=== PATIENT | female | born 1945 | race Caucasian/White ===

== ENCOUNTER 2016-03-30 13:11 | Inpatient (IN) ==
[2016-03-30] MEDS ORDERED: Naloxone 0.4 MG/ML INJ IVP PRN (14:08)
[2016-03-30] MEDS ORDERED: Ondansetron 4 MG/2 ML VIAL IVP PRN (14:08)
[2016-03-30] MEDS ORDERED: Acetaminophen 325 MG TABLET PO PRN (14:08)
[2016-03-30 15:17] LABS: Basophils % 0.2 %; Eosinophils % 0.2 %; Hematocrit 38.5 % (35.3-44.9); Hemoglobin 12.6 g/dL (11.5-15.4); Immature Granulocytes % 0.3 % (0-4); Lymphocytes # 1.7 K/mcL (0.6-4.6); Lymphocytes % 27.8 %; Mean Corpuscular HGB Conc 32.7 g/dL (31.6-35.5); Mean Corpuscular Hemoglobin 30.1 pg (28.0-33.3); Mean Corpuscular Volume 92.1 fL (83.0-100.0); Mean Platelet Volume 9.1 fL (9.4-12.4); Monocytes # 0.5 K/mcL (0.0-1.3); Monocytes % 7.7 %; Neutrophils # 3.9 K/mcL (1.6-8.9); Platelet Count 197 K/mcL (140-400); Red Blood Count 4.18 M/mcL (3.82-4.97); Red Cell Distribution Width 13.6 % (11.5-14.5); Segmented Neutrophils % 63.8 %
[2016-03-30 15:27] LABS: Alanine Aminotransferase 11 Units/L (0-55); Albumin 3.7 g/dL (3.5-5.0); Albumin/Globulin Ratio 1.1 (1.1-2.2); Alkaline Phosphatase 58 Units/L (38-126); Aspartate Amino Transferase 19 Units/L (5-34); BUN/Creatinine Ratio 22 (6-26); Bilirubin,Total 0.3 mg/dL (0.2-1.2); Blood Urea Nitrogen 20 mg/dL (7-20); Calcium 9.6 mg/dL (8.6-10.8); Carbon Dioxide 26 mEq/L (19-29); Chloride 103 mEq/L (98-109); Globulin 3.3 g/dL (2.4-3.5); Glucose 149 mg/dL (70-99); Osmolality,Calculated 291 (280-300); Potassium 4.1 mEq/L (3.5-4.5); Sodium 138 mEq/L (136-145); eGFR For African Americans > 60 (> 60); eGFR For Non-African Americans > 60 (> 60)
[2016-03-30 16:56] LABS: Bacteria,Urine None Seen per hpf (None-Few); Bilirubin,Urine Negative (Negative); Blood,Urine Negative (Negative); Clarity,Urine Clear (Clear); Color,Urine Yellow (Yellow); Glucose,Urine (UA) Normal (Normal); Hyaline Casts,Urine None Seen per lpf (None-Few); Ketones,Urine Negative (Negative); Leukocyte Esterase,Urine Negative (Negative); Nitrite,Urine Negative (Negative); Protein,Urine Negative (Neg-Trace); RBC,Urine 0-3 per hpf (0-3); Squamous Epithelial Cell,Urine Many per lpf (None-Few); Urobilinogen,Urine Normal (Normal)
[2016-03-30] MEDS ORDERED: Melatonin 3 MG TABLET PO PRN (17:02)
--- NOTE | 2016-03-30 17:33 | Internal Med History&Physical ---
Date of Encounter: 03/30/16 Time of Encounter: 16:00 Assessment and Plan (1) Cervical stenosis of spinal canal Current visit: Yes Status: Acute Cervical MRI as outpatient showed severe C3-C4 anterolisthesis with moderate to severe central canal stenosis and shallow disc bulge. Severe right foraminal stenosis at C7-T1. Neurosurgery service is following: plan for cervical surgery tomorrow. Cervical collar. pain control with opiates. bedrest (2) Anterolisthesis Current visit: Yes Status: Acute plan as above. (3) Preoperative clearance Current visit: Yes Status: Acute history of hypertension, severe arthritis and dementia. Patient had a left heart catheterization in 2001 at [place] that was negative. At that time, she had a severe coronary vasospasm causing her cardiac arrest. Per patient, no history of CAD however she takes Imdur, metoprolol, statin and aspirin. Poor functional capacity due to severe arthritis. No active cardiac disease. CBC , CMP and urinalysis are unremarkable. no need for any testing or procedure before surgery. Patient is at moderate risk for a cardiac complication but we will follow her closely during her post- op, this was explained to the patient and her daughters. cardiac monitoring. ekg ordered continue home meds of imdur, statin, aspirin and beta-phillip. (4) HTN (hypertension) Current visit: Yes Status: Chronic Qualifiers: Hypertension type: essential hypertension Qualified Code(s): I10 - Essential (primary) hypertension (5) Dementia Current visit: No Status: Chronic resume home meds Qualifiers: Dementia type: unspecified type Dementia behavioral disturbance: without behavioral disturbance Qualified Code(s): F03.90 - Unspecified dementia without behavioral disturbance (6) Parkinson's disease Current visit: No Status: Chronic (7) Morbid obesity Current visit: No Status: Chronic bmi 38. Qualifiers: Obesity type: unspecified obesity type Qualified Code(s): E66.01 - Morbid ( severe) obesity due to excess calories Internal Medicine - H&P: HPI Chief complaint: severe right neck and arm pain for 1 week Admitted From: Home Plans for Post Hospital Care: Transfer Inp Rehab Fac History of present illness: Ms. Retana is a 70 year old female with past medical history of hypertension, severe arthritis and dementia. She lives in an assisted living facility and uses a rollator for ambulation. Patient has been dealing with right neck and shoulder pain for years and this past February 20 she underwent right total shoulder replacement without complications. After surgery, she was doing well until a week ago when she developed severe right neck pain and shoulder pain with inability to raise her right arm. No tingliness. No numbness. Chronic hip, back and bilateral knee pain due to severe arthritis. She had a cervical MRI as outpatient and it showed severe C3-C4 anterolisthesis with moderate to severe central canal stenosis and shallow disc bulge. Severe right foraminal stenosis at C7-T1. She is a direct admit from Dr Torres wilder and she will undergo cervical surgery tomorrow. Patient had a left heart catheterization in 2001 that was negative. At that time she had a severe coronary vasospasm causing her cardiac arrest. Per patient, no history of CAD however she takes Imdur, metoprolol, statin and aspirin. Her Power of ip attorney is her daughter, Mirian Meade. Past Med Surg Social Fam HX - Past Medical History Medical history: arthritis, dementia, hyperlipidemia, hypertension Psychiatric history: anxiety, bipolar, depression, schizophrenia, previous psychiatric hospitalization, other - Social History Smoking Status: Never smoker Smokeless Tobacco Status: No Alcohol use: none Drug use: none - Family History Father Living Status: Age at : 56 Cause of : heart attack Hx Family Cardiac Disorders: Yes Hx Family Respiratory Disorders: No Hx Family Cancer: Yes (Brain Cancer, Hodgkins) Hx Family GI Disorders: No Hx Family Genitourinary Disorders: No Hx Family Endocrine Disorder: No Hx Family Musculoskeletal Disorders: No Hx Family Neuromuscular Disorders: No Hx Family Neurologic Disorders: No Hx Family HEENT Disorders: No Hx Family Autoimmune Disorders: No Hx Family Reproductive Disorders: No Hx Family Psychosocial Disorders: No Hx Family Medical Disorders: No Internal Medicine - H&P: Meds Atorvastatin [Lipitor] 20 mg PO HS 03/08/15 [History] Azelastine/Fluticasone [Dymista Nasal [place]] 1 spray NS DAILY 03/08/15 [History] Cholecalciferol (Vitamin D3) [Vitamin D3] 5,000 unit PO DAILY 03/08/15 [History] Donepezil [Aricept] 10 mg PO DAILY 03/08/15 [History] Duloxetine [Cymbalta] 90 mg PO HS 03/08/15 [History] Isosorbide MONOnitrate (24 HR) [Imdur] 30 mg PO BID 03/08/15 [History] LORazepam [Lorazepam] 0.5 mg PO DAILY 03/08/15 [History] Loratadine [Claritin] 10 mg PO DAILY 03/08/15 [History] Melatonin 3 mg PO HS 03/08/15 [History] Memantine HCl [Namenda Xr] 14 mg PO QPM 03/08/15 [History] Metoprolol [Lopressor] 25 mg PO BID 03/08/15 [History] Multivitamin [Multi-Day Vitamins] 1 each PO DAILY 03/08/15 [History] Omeprazole 20 mg PO DAILY 03/08/15 [History] Potassium Chloride 20% [Potassium Chloride] 20 meq PO DAILY 03/08/15 [History] OxyCODONE Immed Rel [Roxicodone 5 MG] 5 - 10 mg PO Q6HR PRN #40 tablet 02/20/16 [Rx] Aspirin [Ecotrin] 325 mg PO DAILY 02/21/16 [History] Docusate [Colace] 100 mg PO DAILY 02/21/16 [History] HYDROcodone/Acet 5/325 mg [[place] 5-325 mg] 1 tab PO Q4H PRN 02/21/16 [History] Meloxicam [Mobic] 15 mg PO DAILY 02/21/16 [History] Nitroglycerin [Nitrostat] 0.4 mg SL AD PRN 02/21/16 [History] Promethazine [Phenergan] 25 mg PO BID PRN 02/21/16 [History] Quetiapine Fumarate [Seroquel] 200 mg PO QAM 02/21/16 [History] Quetiapine Fumarate [Seroquel] 400 mg PO HS 02/21/16 [History] Trazodone HCl 75 mg PO HS 03/30/16 [History] Allergies carbamazepine Adverse Reaction (Verified 03/08/15 16:59) unknown per patient Erythromycin Base Adverse Reaction (Verified 03/08/15 16:59) Diarrhea guaifenesin Adverse Reaction (Verified 03/08/15 16:59) MIGRAINES Macrolide Antibiotics Adverse Reaction (Verified 03/08/15 16:59) Diarrhea topiramate [From Topamax] Adverse Reaction (Verified 03/08/15 16:59) "FELT LIKE ON SPEED" PER PATIENT All Systems PM: A 10-system review of systems was performed and is negative for pertinent findings except as documented above in the HPI. - Constitutional Vitals: Temp Pulse Resp BP Pulse Ox 98.3 F 70 16 168/98 94 L 03/30/16 14:19 03/30/16 14:19 03/30/16 14:19 03/30/16 14:19 03/30/16 14:19 General appearance: Present: cooperative, A&O X 3, pleasant, no acute distress, answers questions appropriately - Eye Eye exam: Present: PERRL, sclera anicteric - ENT ENT exam: Present: mucous membranes moist - Neck Neck exam general surgery: Present: supple, trachea midline. Absent: lymphadenopathy Additional comments: cervical collar in place. - Respiratory Respiratory exam: Present: CTAB - Cardiovascular Cardiovascular exam: Present: RRR - GI/Abdominal GI/Abdominal exam: Present: normal bowel sounds, soft. Absent: distended, tenderness - Extremities Exam Extremities exam: Present: pedal edema (minimal ankle swelling in left leg) - Back Exam Back exam: Absent: CVA tenderness (L), CVA tenderness (R) - Neurological Exam Neurological exam: Present: alert, oriented X3. Absent: facial droop, speech deficit - Skin Skin exam: Absent: rash Internal Med - H&P Results - Labs CBC & Chem 7: 03/30/16 14:56 03/30/16 14:56 Labs: Short CBC 03/30/16 Range/Units 14:56 WBC 6.1 (4.3-11.1) K/mcL Hgb 12.6 (11.5-15.4) g/dL Hct 38.5 (35.3-44.9) % Plt Count 197 (140-400) K/mcL Neutrophils # 3.9 (1.6-8.9) K/mcL BMP 03/30/16 14:56 Sodium 138 Potassium 4.1 Chloride 103 Carbon Dioxide 26 BUN 20 Creatinine 0.89 Glucose 149 H Calcium 9.6 Liver Function 03/30/16 Range/Units 14:56 Total Bilirubin 0.3 (0.2-1.2) mg/dL AST 19 (5-34) Units/L ALT 11 (0-55) Units/L Alkaline Phosphatase 58 (38-126) Units/L Albumin 3.7 (3.5-5.0) g/dL Urine 03/30/16 Range/Units 16:34 Urine Color Yellow (Yellow) Urine Clarity Clear (Clear) Urine pH 7.0 (5.0-8.0) pH Units Ur Specific [place] 1.010 (1.010-1.025) Urine Protein Negative (Neg-Trace) mg/dL Urine Glucose (UA) Normal (Normal) mg/dL
[2016-03-30] MEDS: *HR* Morphine 2 MG/ML SYRINGE IVP PRN ×2 (18:10→21:46)
[2016-03-30] MEDS: Isosorbide MONOnitrate (24 HR) 30 MG TAB.ER.24H PO SCH (18:12)
[2016-03-30 19:11] LABS: Prothrombin Time 11.3 Seconds (9.4-12.1)
[2016-03-30 19:14] LABS: Activated Partial Thrombo Time 33.2 Seconds (26.0-36.0)
[2016-03-30] MEDS ORDERED: traZODone 50 MG TABLET PO SCH ×2 (21:00)
[2016-03-31] MEDS: *HR* Morphine 2 MG/ML SYRINGE IVP PRN ×6 (05:22→21:57)
[2016-03-31] MEDS: Isosorbide MONOnitrate (24 HR) 30 MG TAB.ER.24H PO SCH ×2 (05:22→18:32)
[2016-03-31 06:49] LABS: Basophils % 0.4 %; Eosinophils # 0.1 K/mcL (0.0-0.6); Eosinophils % 1.9 %; Hemoglobin 12.5 g/dL (11.5-15.4); Immature Granulocytes % 0.4 % (0-4); Lymphocytes # 2.2 K/mcL (0.6-4.6); Lymphocytes % 45.7 %; Mean Corpuscular HGB Conc 32.1 g/dL (31.6-35.5); Mean Corpuscular Hemoglobin 29.8 pg (28.0-33.3); Mean Corpuscular Volume 93.1 fL (83.0-100.0); Mean Platelet Volume 9.2 fL (9.4-12.4); Monocytes # 0.5 K/mcL (0.0-1.3); Monocytes % 10.5 %; Platelet Count 187 K/mcL (140-400); Red Blood Count 4.19 M/mcL (3.82-4.97); Red Cell Distribution Width 13.9 % (11.5-14.5); Segmented Neutrophils % 41.1 %
[2016-03-31 07:01] LABS: Calcium 9.3 mg/dL (8.6-10.8); Carbon Dioxide 30 mEq/L (19-29); Chloride 101 mEq/L (98-109); Glucose 84 mg/dL (70-99); Sodium 139 mEq/L (136-145); eGFR For African Americans > 60 (> 60); eGFR For Non-African Americans > 60 (> 60)
[2016-03-31 07:13] LABS: Potassium 4.5 mEq/L (3.5-4.5)
[2016-03-31] MEDS ORDERED: *HR* LORazepam 0.5 MG TABLET PO SCH (09:00)
[2016-03-31] MEDS ORDERED: Aspirin Enteric Coated 325 MG Tablet PO SCH (09:00)
[2016-03-31] MEDS ORDERED: traZODone 50 MG TABLET PO SCH (09:00)
[2016-03-31] MEDS ORDERED: Loratadine 10 MG TABLET PO SCH (09:00)
[2016-03-31] MEDS: Pantoprazole 40 MG VIAL IVP SCH ×2 (09:02→09:11)
--- NOTE | 2016-03-31 09:31 | Internal Med Progress Note ---
<Karthik Washington - Last Filed: 03/31/16 09:29> Date of Encounter: 03/31/16 Time of Encounter: 09:30 - Assessment and plan (1) Cervical stenosis of spinal canal Current Visit: Yes Status: Acute Assessment and plan: 03/31/16 No change in symptomatology Surgery planned for later today 03/30/16 Cervical MRI as outpatient showed severe C3-C4 anterolisthesis with moderate to severe central canal stenosis and shallow disc bulge. Severe right foraminal stenosis at C7-T1. Neurosurgery service is following: plan for cervical surgery tomorrow. Cervical collar. pain control with opiates. bedrest (2) Anterolisthesis Current Visit: Yes Status: Acute (3) Preoperative clearance Current Visit: Yes Status: Acute Assessment and plan: 03/30/16 history of hypertension, severe arthritis and dementia. Patient had a left heart catheterization in 2001 at [place] that was negative. At that time, she had a severe coronary vasospasm causing her cardiac arrest. Per patient, no history of CAD however she takes Imdur, metoprolol, statin and aspirin. Poor functional capacity due to severe arthritis. No active cardiac disease. CBC , CMP and urinalysis are unremarkable. no need for any testing or procedure before surgery. Patient is at moderate risk for a cardiac complication but we will follow her closely during her post- op, this was explained to the patient and her daughters. cardiac monitoring. ekg ordered continue home meds of imdur, statin, aspirin and beta-phillip (4) HTN (hypertension) Current Visit: Yes Status: Chronic Assessment and plan: BP stable Qualifiers: Hypertension type: essential hypertension Qualified Code(s): I10 - Essential (primary) hypertension (5) Dementia Current Visit: No Status: Chronic Qualifiers: Dementia type: unspecified type Dementia behavioral disturbance: without behavioral disturbance Qualified Code(s): F03.90 - Unspecified dementia without behavioral disturbance (6) Parkinson's disease Current Visit: No Status: Chronic (7) Morbid obesity Current Visit: No Status: Chronic Qualifiers: Obesity type: unspecified obesity type Qualified Code(s): E66.01 - Morbid ( severe) obesity due to excess calories - Subjective Interval history: Patient seen and examined at bedside. She is wearing a soft neck collar. She states that she is having neck and right shoulder pain. She denies CP, SOB and otherwise has no complaints - Constitutional Vitals: Temp Pulse Resp BP Pulse Ox 98.6 F 67 18 148/78 94 L 03/31/16 06:39 03/31/16 06:39 03/31/16 06:39 03/31/16 06:39 03/31/16 06:39 General appearance: Present: cooperative, A&O X 3, pleasant, no acute distress, answers questions appropriately - Head Head exam: Present: atraumatic, normocephalic - Eye Eye exam: Present: PERRL, conjuntiva pink, sclera anicteric Pupils: Present: PERRL - Neck Neck exam general surgery: Present: trachea midline. Absent: lymphadenopathy Additional comments: Soft cervical collar in place - Respiratory Respiratory exam: Present: CTAB. Absent: accessory muscle use, rales, rhonchi, wheezes - Cardiovascular Cardiovascular exam: Present: RRR, +S1, +S2. Absent: diastolic murmur, gallop, rubs, systolic murmur - GI/Abdominal GI/Abdominal exam: Present: normal bowel sounds, soft, no peritoneal signs. Absent: distended, tenderness - Extremities Exam Extremities exam: Present: warm, radial pulses palpable and symetrical. Absent : calf tenderness, cyanotic, pedal edema - Neurological Exam Neurological exam: Present: alert, oriented X3, no focal deficits. Absent: facial droop, speech deficit - Skin Skin exam: Present: dry, intact Internal Medicine: Result - Labs CBC & Chem 7: 03/31/16 06:20 03/31/16 06:20 Labs: Short CBC 03/30/16 03/31/16 Range/Units 14:56 06:20 WBC 6.1 4.9 (4.3-11.1) K/mcL Hgb 12.6 12.5 (11.5-15.4) g/dL Hct 38.5 39.0 (35.3-44.9) % Plt Count 197 187 (140-400) K/mcL Neutrophils # 3.9 2.0 (1.6-8.9) K/mcL BMP 03/30/16 03/31/16 14:56 06:20 Sodium 138 139 Potassium 4.1 4.5 Chloride 103 101 Carbon Dioxide 26 30 H BUN 20 27 H Creatinine 0.89 0.83 Glucose 149 H 84 Calcium 9.6 9.3 Liver Function 02/16/17 Range/Units 14:56 Total Bilirubin 0.3 (0.2-1.2) mg/dL AST 19 (5-34) Units/L ALT 11 (0-55) Units/L Alkaline Phosphatase 58 (38-126) Units/L Albumin 3.7 (3.5-5.0) g/dL Urine 03/30/16 Range/Units 16:34 Urine Color Yellow (Yellow) Urine Clarity Clear (Clear) Urine pH 7.0 (5.0-8.0) pH Units Ur Specific [place] 1.010 (1.010-1.025) Urine Protein Negative (Neg-Trace) mg/dL Urine Glucose (UA) Normal (Normal) mg/dL - ABG Interpretation ABG results: PT/INR, D-dimer PT 11.3 Seconds (9.4-12.1) 03/30/16 18:28 - Impressions Impressions Chest X-Ray 03/30/16 21:04 IMPRESSION: Mild pulmonary vascular congestion. D/ / Omar Castanon MD / Omar Castanon MD Interpreting Provider: Omar Castanon MD - VTE Documentation of Mechanical Device: Venous foot pump, device Consult Discharge Plan - Plan Referrals: Ava Lazar, WATER POLLUTION CONTROL TECHNICIAN [Primary Care Provider] - <Luis Alberto Cee H - Last Filed: 03/31/16 13:55> Date of Encounter: 03/31/16 - Constitutional Vitals: Temp Pulse Resp BP Pulse Ox 98.4 F 72 18 139/78 94 L 03/31/16 11:12 03/31/16 11:12 03/31/16 11:12 03/31/16 11:12 03/31/16 11:12 Internal Medicine: Result - Labs CBC & Chem 7: 03/31/16 06:20 03/31/16 06:20 Labs: Short CBC 03/30/16 03/31/16 Range/Units 14:56 06:20 WBC 6.1 4.9 (4.3-11.1) K/mcL Hgb 12.6 12.5 (11.5-15.4) g/dL Hct 38.5 39.0 (35.3-44.9) % Plt Count 197 187 (140-400) K/mcL Neutrophils # 3.9 2.0 (1.6-8.9) K/mcL BMP 03/30/16 03/31/16 14:56 06:20 Sodium 138 139 Potassium 4.1 4.5 Chloride 103 101 Carbon Dioxide 26 30 H BUN 20 27 H Creatinine 0.89 0.83 Glucose 149 H 84 Calcium 9.6 9.3 Liver Function 03/30/16 Range/Units 14:56 Total Bilirubin 0.3 (0.2-1.2) mg/dL AST 19 (5-34) Units/L ALT 11 (0-55) Units/L Alkaline Phosphatase 58 (38-126) Units/L Albumin 3.7 (3.5-5.0) g/dL Urine 03/30/16 Range/Units 16:34 Urine Color Yellow (Yellow) Urine Clarity Clear (Clear) Urine pH 7.0 (5.0-8.0) pH Units Ur Specific [place] 1.010 (1.010-1.025) Urine Protein Negative (Neg-Trace) mg/dL Urine Glucose (UA) Normal (Normal) mg/dL - ABG Interpretation ABG results: PT/INR, D-dimer PT 11.3 Seconds (9.4-12.1) 03/30/16 18:28 - Impressions Impressions Chest X-Ray 03/30/16 21:04 IMPRESSION: Mild pulmonary vascular congestion. D/ / Omar Castanon MD / Omar Castanon MD Interpreting Provider: Omar Castanon MD - Attending Attestation B/L tenar muscles atrophy R>Left. Surgery today. I examined this patient and my medical decision-making was reviewed with the ELECTROLYTIC DE SCALER/PA/Advanced Practice Nurse/Resident Physician. I agree with the documented findings, disposition and treatment plan as described except to the extent set forth below.
[2016-03-31] MEDS ORDERED: Ondansetron 4 MG/2 ML VIAL ONE ×3 (14:12→18:31)
[2016-03-31] MEDS ORDERED: *HR* Rocuronium Bromide 50 MG/5 ML VIAL ONE (14:12)
[2016-03-31] MEDS ORDERED: *HR* Succinylcholine 200 MG/10 ML VIAL IVP ONE (14:12)
[2016-03-31] MEDS ORDERED: *HR* Propofol 200 MG/20 ML VIAL IVP ONE (14:13)
[2016-03-31] MEDS ORDERED: *HR* Midazolam HCl 2 MG/2 ML VIAL ONE (14:13)
[2016-03-31] MEDS ORDERED: Lidocaine -MPF 2% 2 ML VIAL ONE (14:13)
[2016-03-31] MEDS ORDERED: *HR* Remifentanil 1 MG VIAL IVP ONE ×2 (14:34)
--- NOTE | 2016-03-31 14:36 | Anesthesia Evaluation PreOp ---
Date of Encounter: 03/31/16 Time of Encounter: 14:29 - Past History Planned Operation: ACDF C3-C5 Cardiac History: PA, HTN, Hyperlipidemia Pulmonary History: Denies Any Significant HX DINNER COOK History: Denies Any Significant HX Other Medical History: GERD, Other (schizophrenia, fibromyalgia, bipolar, dementia) Anesthesia History: No Prior Anesthetic Complications, Past Anesthesia Alcohol Use: none Drug use: none Medications and Allergies Atorvastatin [Lipitor] 20 mg PO HS 03/08/15 [History] Azelastine/Fluticasone [Dymista Nasal [place]] 1 spray NS DAILY 03/08/15 [History] Cholecalciferol (Vitamin D3) [Vitamin D3] 5,000 unit PO DAILY 03/08/15 [History] Donepezil [Aricept] 10 mg PO DAILY 03/08/15 [History] Duloxetine [Cymbalta] 90 mg PO HS 03/08/15 [History] Isosorbide MONOnitrate (24 HR) [Imdur] 30 mg PO BID 03/08/15 [History] LORazepam [Lorazepam] 0.5 mg PO DAILY 03/08/15 [History] Loratadine [Claritin] 10 mg PO DAILY 03/08/15 [History] Melatonin 3 mg PO HS 03/08/15 [History] Memantine HCl [Namenda Xr] 14 mg PO QPM 03/08/15 [History] Metoprolol [Lopressor] 25 mg PO BID 03/08/15 [History] Multivitamin [Multi-Day Vitamins] 1 each PO DAILY 03/08/15 [History] Omeprazole 20 mg PO DAILY 03/08/15 [History] Potassium Chloride 20% [Potassium Chloride] 20 meq PO DAILY 03/08/15 [History] OxyCODONE Immed Rel [Roxicodone 5 MG] 5 - 10 mg PO Q6HR PRN #40 tablet 02/20/16 [Rx] Aspirin [Ecotrin] 325 mg PO DAILY 02/21/16 [History] Docusate [Colace] 100 mg PO DAILY 02/21/16 [History] HYDROcodone/Acet 5/325 mg [[place] 5-325 mg] 1 tab PO Q4H PRN 02/21/16 [History] Meloxicam [Mobic] 15 mg PO DAILY 02/21/16 [History] Nitroglycerin [Nitrostat] 0.4 mg SL AD PRN 02/21/16 [History] Promethazine [Phenergan] 25 mg PO BID PRN 02/21/16 [History] Quetiapine Fumarate [Seroquel] 200 mg PO QAM 02/21/16 [History] Quetiapine Fumarate [Seroquel] 400 mg PO HS 02/21/16 [History] Trazodone HCl 75 mg PO HS 03/30/16 [History] Allergies carbamazepine Adverse Reaction (Verified 03/08/15 16:59) unknown per patient Erythromycin Base Adverse Reaction (Verified 03/08/15 16:59) Diarrhea guaifenesin Adverse Reaction (Verified 03/08/15 16:59) MIGRAINES Macrolide Antibiotics Adverse Reaction (Verified 03/08/15 16:59) Diarrhea topiramate [From Topamax] Adverse Reaction (Verified 03/08/15 16:59) "FELT LIKE ON SPEED" PER PATIENT - Meds/Allergy Pre-op Review Medications Reviewed: Yes Allergies Reviewed: Yes Beta Blockers on Current Med List: Yes If Beta Blockers taken, Date/Time (Last Dose taken): 03/31/2016 at 0901 Anesthesia Results - Labs 03/31/16 06:20 03/31/16 06:20 - Imaging EKG: report reviewed (03/05/2015 SB, NSST abnormality) Additional studies: 11/11/2015 Stress EF>70% perfusion imaging was negative for ischemia or infarct evidence of mild TID, ratio 1.46 03/31/2013 Echo LVEF 55-60% normal LV size and function there is evidence of mild LV diastolic dysfunction normal RV size and function no significant valvular dysfunction estimated RVSP was 37 mmHg mild pulmonary HTN Anesthesia Exam Vital Signs/O2 Sat, Most Current Temp Pulse Resp BP Pulse Ox 98.4 F 72 18 139/78 94 L 03/31/16 11:12 03/31/16 11:12 03/31/16 11:12 03/31/16 11:12 03/31/16 11:12 Height: 5'2''/1.57 m Weight: 207 lbs/94.12 kg NPO (# of Hours): 8 Pain Scale: 5 Pain Scale Used: Numeric (1 - 10) - HEENT Pupil (Motor): EOMI Mallampati: II Teeth: Normal Oral Opening: Greater than 3 - DINNER COOK LOC: Oriented DINNER COOK Motor: Normal LUE, Normal RLE, Normal LLE, Normal Face, Deficit RUE DINNER COOK Sensory: Normal: RUE, LUE, RLE, LLE, Face - Cardiac Rhythm: Regular Murmur: None - Pulmonary Breath Sounds: bilateral Clear Respiratory Effort: Symmetrical Anesthesia Assess/Plan ASA Score: 3 Modified Delia Scale for Level of Consciousness: Cooperative, oriented, and tranquil Anesthetic Plan: General Monitoring Plan: Standard Monitors Recovery Plan: PACU
--- NOTE | 2016-03-31 14:53 | Spinal Consult Note ---
Date of Encounter: 03/31/16 Time of Encounter: 14:00 Assessment and Plan (1) Cervical kyphosis Current Visit: Yes Status: Chronic On exam she is pleasant and cooperative. Afebrile vital signs are stable. She is unable to abduct her right shoulder/arm. Her deltoid strength is 1 on a motor scale. She can fire her biceps with 4 minus out of 5 strength. She is otherwise neurovascularly intact with regard to her upper and lower extremities. She has a negative Neville sign. She has no clonus. Radiographic evaluation reveals a severe anterolisthesis of C3 on C4. It is grade 3 spondylolisthesis and almost grade 4. There are marked cervical degenerative changes. There appears to be autofusion at C4-5, marked disc space height with osteophytes at C5-6 and autofusion at C6-7. There is a marked cervical kyphosis. Multilevel severe degenerative changes. MRI examination reveals a marked anterolisthesis on C3-4. There is severe central and foraminal stenosis at the C3-4 level. There is a marked cervical kyphosis. There is autofusion at C4-5 and C6-7. There are severe multilevel degenerative changes. Impression: 1) cervical kyphosis 2) Marked anterolisthesis C3 on C4 3) severe cervical stenosis 4) focal motor deficit which is progressive Plan: Due to her concerning weakness and neurologic progression I find it reasonable to consider surgery in the form of an anterior cervical decompression and fusion C3-C4. Risks benefits and possible complications were discussed and the patient would like to proceed. Patient understands that due to her significant deformity and instability she will likely require a posterior decompression and fusion as a staged procedure as well. Patient is amenable to the plan, and is willing to proceed. Qualifiers: Kyphosis type: unspecified Qualified Code(s): M40.202 - Unspecified kyphosis, cervical region (2) Focal motor deficit Current Visit: Yes Status: Acute (3) Cervical stenosis of spinal canal Current Visit: Yes Status: Chronic History of Present Illness Chief complaint: Cant move right arm, right arm pain HPI: Ms. Retana is a 70 year old female Present history of previous right shoulder surgery by Dr. Kohli as well as bilateral total knee replacements. She was doing well but has experience progressive and worsening right upper extremity pain and weakness. She has been unable to abduct the right shoulder at all over the past several days but noticed weakness approximately 10 days ago. She was seen by orthopedics postoperatively for her right shoulder surgery, but her profound weakness prompted radiographs and MRI examination. Due to the severe findings on MRI and radiographic examination as well as concerning progressive weakness she was admitted to the hospital for definitive management. She denies any fevers, chills, trauma. Past Med Surg Social Fam HX - Past Medical History Medical history: arthritis, dementia, hyperlipidemia, hypertension Psychiatric history: anxiety, bipolar, depression, schizophrenia, previous psychiatric hospitalization, other - Social History Smoking Status: Never smoker Smokeless Tobacco Status: No Alcohol use: none Drug use: none - Family History Father Living Status: Age at : 56 Cause of : heart attack Hx Family Cardiac Disorders: Yes Hx Family Respiratory Disorders: No Hx Family Cancer: Yes (Brain Cancer, Hodgkins) Hx Family GI Disorders: No Hx Family Genitourinary Disorders: No Hx Family Endocrine Disorder: No Hx Family Musculoskeletal Disorders: No Hx Family Neuromuscular Disorders: No Hx Family Neurologic Disorders: No Hx Family HEENT Disorders: No Hx Family Autoimmune Disorders: No Hx Family Reproductive Disorders: No Hx Family Psychosocial Disorders: No Hx Family Medical Disorders: No Medications and Allergies Atorvastatin [Lipitor] 20 mg PO HS 03/08/15 [History] Azelastine/Fluticasone [Dymista Nasal [place]] 1 spray NS DAILY 03/08/15 [History] Cholecalciferol (Vitamin D3) [Vitamin D3] 5,000 unit PO DAILY 03/08/15 [History] Donepezil [Aricept] 10 mg PO DAILY 03/08/15 [History] Duloxetine [Cymbalta] 90 mg PO HS 03/08/15 [History] Isosorbide MONOnitrate (24 HR) [Imdur] 30 mg PO BID 03/08/15 [History] LORazepam [Lorazepam] 0.5 mg PO DAILY 03/08/15 [History] Loratadine [Claritin] 10 mg PO DAILY 03/08/15 [History] Melatonin 3 mg PO HS 03/08/15 [History] Memantine HCl [Namenda Xr] 14 mg PO QPM 03/08/15 [History] Metoprolol [Lopressor] 25 mg PO BID 03/08/15 [History] Multivitamin [Multi-Day Vitamins] 1 each PO DAILY 03/08/15 [History] Omeprazole 20 mg PO DAILY 03/08/15 [History] Potassium Chloride 20% [Potassium Chloride] 20 meq PO DAILY 03/08/15 [History] OxyCODONE Immed Rel [Roxicodone 5 MG] 5 - 10 mg PO Q6HR PRN #40 tablet 02/20/16 [Rx] Aspirin [Ecotrin] 325 mg PO DAILY 02/21/16 [History] Docusate [Colace] 100 mg PO DAILY 02/21/16 [History] HYDROcodone/Acet 5/325 mg [[place] 5-325 mg] 1 tab PO Q4H PRN 02/21/16 [History] Meloxicam [Mobic] 15 mg PO DAILY 02/21/16 [History] Nitroglycerin [Nitrostat] 0.4 mg SL AD PRN 02/21/16 [History] Promethazine [Phenergan] 25 mg PO BID PRN 02/21/16 [History] Quetiapine Fumarate [Seroquel] 200 mg PO QAM 02/21/16 [History] Quetiapine Fumarate [Seroquel] 400 mg PO HS 02/21/16 [History] Trazodone HCl 75 mg PO HS 03/30/16 [History] Allergies carbamazepine Adverse Reaction (Verified 03/08/15 16:59) unknown per patient Erythromycin Base Adverse Reaction (Verified 03/08/15 16:59) Diarrhea guaifenesin Adverse Reaction (Verified 03/08/15 16:59) MIGRAINES Macrolide Antibiotics Adverse Reaction (Verified 03/08/15 16:59) Diarrhea topiramate [From Topamax] Adverse Reaction (Verified 03/08/15 16:59) "FELT LIKE ON SPEED" PER PATIENT Results - Labs Result Diagrams: 03/31/16 06:20 03/31/16 06:20 Labs: Abnormal lab results MPV 9.2 fL (9.4-12.4) L 03/31/16 06:20 Carbon Dioxide 30 mEq/L (19-29) H 03/31/16 06:20 BUN 27 mg/dL (7-20) H 03/31/16 06:20 BUN/Creatinine Ratio 33 (6-26) H 03/31/16 06:20 Ur Squamous Epith Cells Many per lpf (None-Few) H 03/30/16 16:34 H & H 03/30/16 03/31/16 Range/Units 14:56 06:20 Hgb 12.6 12.5 (11.5-15.4) g/dL Hct 38.5 39.0 (35.3-44.9) % All other labs normal. Consult Discharge Plan - Plan Referrals: Ava Lazar, A/C TECHNICIAN [Primary Care Provider] -
[2016-03-31 14:56] LABS: BUN/Creatinine Ratio 27 (6-26); Blood Urea Nitrogen 22 mg/dL (7-20)
[2016-03-31 14:57] LABS: Osmolality,Calculated 291 (280-300)
[2016-03-31] MEDS ORDERED: *HR* FentaNYL (PF) 100 MCG/2 ML VIAL ONE (15:21)
[2016-03-31] MEDS ORDERED: EPHEDrine 50 MG/ML VIAL ONE (16:08)
[2016-03-31] MEDS ORDERED: *HR* Labetalol 100 MG/20 ML MDV IVP PRN (16:32)
[2016-03-31] MEDS ORDERED: *HR* Promethazine 25 MG/ML VIAL IVP PRN (16:32)
[2016-03-31] MEDS ORDERED: Ondansetron 4 MG/2 ML VIAL IVP ONE (16:32)
[2016-03-31] MEDS ORDERED: Neostigmine Methylsulfate 3 MG/3 ML SYRINGE ONE (16:55)
--- NOTE | 2016-03-31 17:27 | Electrocardiograph Report ---
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
[2016-03-31] MEDS ORDERED: Dexamethasone 4 MG/ML VIAL ONE (18:05)
--- NOTE | 2016-03-31 18:22 | Orthopedic Operative Note ---
Date of procedure: 03/31/16 Pre-op diagnosis: cervical kyphosis, cervical stenosis, anterolisthesis, focal motor deficit Post-op diagnosis: same Operation/Findings: Anterior cervical decompression and fusion C3-4: The patient was brought to the operating room and placed supine on the operating room table. Successful general endotracheal anesthesia intubation was performed. Neurophysiologic monitoring personnel placed leads on the upper and lower extremities as well as the cranium for EMG monitoring purposes. Appropriate baseline potentials were noted by the neurophysiologic monitoring staff. Chance catheter was placed prior to positioning. Compression boots and stockings were placed for deep vein thrombosis prophylaxis. Padding was also placed all bony prominences including the ulnar nerve near the medial epicondyles of the elbows were appropriately padded. Mild traction was placed on the bilateral shoulders and taped into place. Preoperative antibiotics were administered. The area from the mandible bilaterally to the upper thoraces was prepped and draped in the usual sterile fashion. A transverse incision was made 2 cm proximal to the level of the cricoid cartilage which is approximately 3 cm in length and extended from the midline of the cervical spine laterally towards the sternocleidomastoid muscle on the left. We then performed standard medial approach to the carotid sheath. Sponges were used to tease the fascial medial to the sternocleidomastoid muscle while carefully controlling and palpating the carotid artery. Using careful dissection we were able to get to the level of the anterior vertebral bodies and longus coli muscles. The spinal needle was placed at the appropriate C3-4 level, and intraoperative radiograph was obtained which was a cervical spine lateral radiograph. The needle and radiograph confirmed we were at the correct C3-4 operative level. We further exposed this level by using Bovie cautery under the medial edge of the longus coli muscles to allow them to be retracted approximately 2 mm laterally on each side. An 11 blade was used to perform anterior discectomy at the appropriate level after an initial annulotomy of the anterior longitudinal ligament and annulus was performed. Further disc material was removed with pituitary Rongeurs. Subsequently, Synthes pins were placed at the C3 and C4 vertebral bodies respectively to provide distraction. We then used a Trimline cervical retractor which was placed in both medial and lateral as well as inferior superior direction to allow full visualization of the appropriate C3-4 disc and C3 and C4 vertebral bodies. The Leica microscope was brought to the field and the remainder of the procedure was performed under the guidance of this microscope. Using pituitary rongeurs and small curettes, various micro- instruments, a full discectomy was performed at the appropriate C3-4 level. The posterior longitudinal ligament was encountered and appeared partially calcified. A portion of this ligament was removed. After complete and thorough discectomy and removal of spondylitic material was performed the endplates of the C3 and C4 vertebral bodies were prepared with a bur until allow bleeding of cancellous bone. A 7 mm trial graft was evaluated and appeared to fit quite well within the excised disc space. A cortico-cancellus allograft of 7 mm was utilized, carefully tapped into place within the excised disc space with the aid of a bone tamp. It was seated approximately 2 mm from the anterior edge of the cortex of the adjacent C3 and C4 vertebral bodies. A 27mm cervical plate was then placed on the anterior aspect of the C3 and C4 vertebral bodies. The plate was placed in the midline position after drilling for 13 mm self tapping screws and inserting them. They were locked in place using standard Venture plate maneuvers. At this point a lateral radiograph of the cervical spine was obtained and showed satisfactory position of the graft and plate. The wound was copiously irrigated and bleeders encountered were cauterized using Bovie cautery. Platysma was closed with interrupted 2-0 Vicryl sutures. Running 3-0 Monocryl suture was used for skin closure. Sterile dressing was placed over the neck wound. The patient was transferred to a hospital bed and extubated. The patient was noted to be fully motor and sensory intact in the recovery room at the end of the procedure. The medications. All sponge instrument and needle counts were correct at the end of the procedure. Anesthesia: GETA Surgeon: Gino Macdonald Jr Estimated blood loss (cc): 40 Condition: stable Disposition: PACU
[2016-03-31] MEDS: *HR* HYDROmorphone (PF) 1 MG/ML SYRINGE IVP PRN ×4 (18:43→18:58)
--- NOTE | 2016-03-31 19:25 | Anesthesia Evaluation Post Op ---
Date of Encounter: 03/31/16 Time of Encounter: 19:25 - Vital Signs Vital Signs: Vital Signs/O2 Sat, Most Current Temp Pulse Resp BP Pulse Ox 98.2 F 100 14 149/85 100 03/31/16 18:53 03/31/16 19:13 03/31/16 19:13 03/31/16 19:13 03/31/16 19:13 - Lungs Lungs: Clear Ascult./Percussion - Airway Airway: Non-obstructed - Cardiovascular Regular Rate - Mental Status Mental Status: Asleep with brisk response to light stimulation - Pain Pain Scale: 5 Pain Scale used: Numeric (1 - 10) - Nausea Vomiting Nausea Vomiting: Not Present - Hydration Hydration: Ice chips, Chance catheter - Discharge PostOp Status: Transfer Patient to floor
[2016-03-31] MEDS ORDERED: Acetaminophen 325 MG TABLET PO PRN (19:59)
[2016-03-31] MEDS ORDERED: Naloxone 0.4 MG/ML INJ IVP PRN (19:59)
[2016-03-31] MEDS ORDERED: Nitroglycerin 0.4 MG TAB.SUBL SL PRN (19:59)
[2016-03-31] MEDS: *HR* HYDROcodone/Acet 5/325 mg TABLET PO PRN (20:51)
[2016-03-31] MEDS: traZODone 50 MG TABLET PO SCH (20:51)
[2016-03-31] MEDS ORDERED: Melatonin 3 MG TABLET PO SCH (21:00)
[2016-04-01] MEDS: *HR* HYDROcodone/Acet 5/325 mg TABLET PO PRN (01:08)
[2016-04-01] MEDS: *HR* Morphine 2 MG/ML SYRINGE IVP PRN (04:05)
[2016-04-01] MEDS: Isosorbide MONOnitrate (24 HR) 30 MG TAB.ER.24H PO SCH ×2 (05:19→16:34)
[2016-04-01] MEDS: Pantoprazole 40 MG VIAL IVP SCH ×2 (07:28→20:51)
[2016-04-01] MEDS: Ondansetron 4 MG/2 ML VIAL IVP PRN (07:28)
[2016-04-01] MEDS: Cholecalciferol (D-3) 1,000 UNIT TABLET PO SCH (07:29)
[2016-04-01] MEDS: Aspirin Enteric Coated 325 MG Tablet PO SCH (07:29)
[2016-04-01] MEDS: Loratadine 10 MG TABLET PO SCH (07:29)
[2016-04-01] MEDS: *HR* LORazepam 0.5 MG TABLET PO SCH (07:30)
[2016-04-01] MEDS: Multivit/Ca/Min/Fe/FA 1 TAB TABLET PO SCH (07:30)
[2016-04-01] MEDS: DYMISTA NS SCH (07:30)
[2016-04-01] MEDS: *HR* OxyCODONE/APAP 5/325 TABLET PO PRN ×4 (07:42→21:38)
[2016-04-01] MEDS: ceFAZolin 1,000 MG in D5% in Water (Mini-Bag+) 100 ML IVPB SCH ×2 (08:57→15:54)
--- NOTE | 2016-04-01 11:35 | Internal Med Progress Note ---
Date of Encounter: 04/01/16 Time of Encounter: 11:33 - Assessment and plan (1) Cervical kyphosis Current Visit: Yes Status: Chronic Assessment and plan: 1) cervical kyphosis 2) Marked anterolisthesis C3 on C4 3) severe cervical stenosis 4) progressive focal motor deficit S/PAnterior cervical decompression and fusion C3-4 Cervical MRI as outpatient showed severe C3-C4 anterolisthesis with moderate to severe central canal stenosis and shallow disc bulge. Severe right foraminal stenosis at C7-T1. Planning for cervical fusion on Sunday by Dr Romeo ( Sunday maybe) Pain control with morphine Qualifiers: Kyphosis type: unspecified Qualified Code(s): M40.202 - Unspecified kyphosis, cervical region (2) Anterolisthesis Current Visit: Yes Status: Acute (3) Cervical stenosis of spinal canal Current Visit: Yes Status: Chronic Assessment and plan: 03/31/16 No change in symptomatology Surgery planned (4) HTN (hypertension) Current Visit: Yes Status: Chronic Assessment and plan: Elevated likely secondary to pain Start hydralazine as needed and continue metoprolol BP stable Qualifiers: Hypertension type: essential hypertension Qualified Code(s): I10 - Essential (primary) hypertension (5) Rotator cuff arthropathy Current Visit: No Status: Acute Qualifiers: Laterality: right Qualified Code(s): M12.811 - Other specific arthropathies , not elsewhere classified, right shoulder (6) Dementia Current Visit: No Status: Chronic Assessment and plan: Continue Aricept Qualifiers: Dementia type: unspecified type Dementia behavioral disturbance: without behavioral disturbance Qualified Code(s): F03.90 - Unspecified dementia without behavioral disturbance - Time Spent With Patient Greater than 35 minutes - Subjective Interval history: Complains of upper airway congestion, mild neck pain. Denies any chest pain, no shortness of breath, no abdominal pain, no dysuria. No fevers overnight her blood pressure has been elevated in the 160s. Complains of mild headache - Constitutional Vitals: Temp Pulse Resp BP Pulse Ox 98.1 F 65 16 147/83 95 04/01/16 11:28 04/01/16 11:28 04/01/16 11:28 04/01/16 11:28 04/01/16 11:28 General appearance: Present: cooperative, A&O X 3, pleasant, no acute distress, answers questions appropriately - Head Head exam: Present: atraumatic, normocephalic - Eye Eye exam: Present: PERRL, conjuntiva pink, sclera anicteric Pupils: Present: PERRL - Neck Neck exam general surgery: Present: supple, trachea midline. Absent: lymphadenopathy - Respiratory Respiratory exam: Present: CTAB. Absent: accessory muscle use, rales, rhonchi, wheezes - Cardiovascular Cardiovascular exam: Present: RRR, +S1, +S2. Absent: diastolic murmur, gallop, rubs, systolic murmur - GI/Abdominal GI/Abdominal exam: Present: normal bowel sounds, soft, no peritoneal signs. Absent: distended, tenderness - Extremities Exam Extremities exam: Present: warm, radial pulses palpable and symetrical. Absent : calf tenderness, cyanotic, pedal edema Additional comments: Upper extremities weakness 4 out of 5 mostly evident in the right upper extremity - Neurological Exam Neurological exam: Present: CN II-XII intact, oriented X3. Absent: no focal deficits, pronater drift, facial droop, speech deficit - Skin Skin exam: Present: dry, intact Internal Medicine: Result - Labs CBC & Chem 7: 03/31/16 06:20 03/31/16 06:20 Labs: BMP 03/31/16 06:20 Sodium 139 Potassium 4.5 Chloride 101 Carbon Dioxide 30 H BUN 22 H Creatinine 0.83 Glucose 84 Calcium 9.3 - ABG Interpretation ABG results: PT/INR, D-dimer PT 11.3 Seconds (9.4-12.1) 03/30/16 18:28 - Impressions Impressions Fluoroscopy 03/31/16 15:49 IMPRESSION: Intraprocedural fluoroscopic spot images as above. See separate procedure report for more information. D/ / Taras You MD / Taras You MD Interpreting Provider: Taras You MD Cervical Spine X-Ray 04/01/16 08:15 IMPRESSION: 1. Postsurgical changes are noted from an anterior C3-C4 fusion and discectomy without complication. 2. Pulmonary edema, more conspicuous. Follow-up chest radiograph may be of benefit for further evaluation. D/ / 04/01/2016 11:08:40 Jayce Williamson MD / keri Interpreting Provider: Jayce Williamson MD - VTE Documentation of Mechanical Device: Intermittent pneumatic compression device Consult Discharge Plan - Plan Referrals: Ava Lazar, SUPERVISOR AGRICULTURAL EDUCATION [Primary Care Provider] -
[2016-04-01] MEDS: (Memantine Hcl [Namenda Xr] 14 MG) PO SCH (16:27)
[2016-04-01] MEDS ORDERED: Mag Hydrox/Al Hydrox/Simeth 30 ML UDC PO PRN (20:32)
[2016-04-01] MEDS: traZODone 50 MG TABLET PO SCH (20:51)
[2016-04-01] MEDS: Melatonin 3 MG TABLET PO PRN (21:42)
[2016-04-02] MEDS: *HR* OxyCODONE/APAP 5/325 TABLET PO PRN ×5 (04:28→22:20)
[2016-04-02] MEDS: Isosorbide MONOnitrate (24 HR) 30 MG TAB.ER.24H PO SCH ×2 (06:21→17:56)
--- NOTE | 2016-04-02 07:00 | Spine Progress Note ---
Date of Encounter: 04/02/16 Time of Encounter: 06:58 - Assessment and Plan (1) Cervical kyphosis Current Visit: Yes Status: Chronic Qualifiers: Kyphosis type: unspecified Qualified Code(s): M40.202 - Unspecified kyphosis, cervical region (2) Focal motor deficit Current Visit: Yes Status: Acute (3) Cervical stenosis of spinal canal Current Visit: Yes Status: Chronic Subjective Principal diagnosis: cervical kyphosis, cervical stenosis, focal motor deficit, anterolisthesis Interval history: The patient is without complaints. Afebrile vital signs are stable. Incision is clean dry and intact. Neurovascularly intact with regard to upper extremities but right arm abduction weakness persists. Fires all upper and lower extremity motor groups. Radiiograph satisfactory. Assessment :stable. Plan mobilize ,continue analgesics, will need posterior cervical stabilization procedure likely Sunday. Objective Vital signs: Vital Signs Temp Pulse Resp BP Pulse Ox 04/02/16 06:47 97.9 F 69 16 103/62 93 L 04/02/16 04:19 97.6 F 72 16 122/69 94 L 04/02/16 04:00 97.6 F 73 16 125/75 98 04/02/16 00:00 97.1 F L 78 17 128/75 98 04/01/16 20:00 97.8 F 79 19 127/73 98 04/01/16 16:32 98.2 F 66 14 115/73 97 04/01/16 11:28 98.1 F 65 16 147/83 95 04/01/16 07:34 98.0 F 83 16 167/93 97 Intake and Output 04/01/16 04/01/16 04/02/16 15:59 23:59 07:59 Intake Total 700 / 700 940 / 940 Output Total 700 / 700 Balance 0 / 0 940 / 940 Intake: IV Fluids 100 / 100 100 / 100 Ancef 1,000 MG In 100 / 100 100 / 100 Dextrose 5% (Minibag+) 100 ML 100 ML @ 200 mls/ hr IVPB Q8HR BRIAN Rx#: [id number] Oral 600 / 600 840 / 840 Output: Catheter 700 / 700 Other: Meal Lunch Dinner Percent of Meal Consumed 100% 50% # Voids 1 # Bowel Movements 1 - Labs CBC & BMP: 03/31/16 06:20 03/31/16 06:20 Labs: Abnormal lab results MPV 9.2 fL (9.4-12.4) L 03/31/16 06:20 Carbon Dioxide 30 mEq/L (19-29) H 03/31/16 06:20 BUN 22 mg/dL (7-20) H 03/31/16 06:20 BUN/Creatinine Ratio 27 (6-26) H 03/31/16 06:20 Ur Squamous Epith Cells Many per lpf (None-Few) H 03/30/16 16:34 Consult Discharge Plan - Plan Referrals: Ava Lazar, RETREADER [Primary Care Provider] -
[2016-04-02] MEDS: Multivit/Ca/Min/Fe/FA 1 TAB TABLET PO SCH (08:42)
[2016-04-02] MEDS: Loratadine 10 MG TABLET PO SCH (08:42)
[2016-04-02] MEDS: Cholecalciferol (D-3) 1,000 UNIT TABLET PO SCH (08:42)
[2016-04-02] MEDS: Pantoprazole 40 MG VIAL IVP SCH (08:43)
[2016-04-02] MEDS: DYMISTA NS SCH (08:43)
[2016-04-02] MEDS: Aspirin Enteric Coated 325 MG Tablet PO SCH (08:43)
[2016-04-02] MEDS: *HR* LORazepam 0.5 MG TABLET PO SCH (08:43)
--- NOTE | 2016-04-02 14:32 | Internal Med Progress Note ---
Date of Encounter: 04/02/16 Time of Encounter: 14:29 - Assessment and plan (1) Cervical kyphosis Current Visit: Yes Status: Chronic Assessment and plan: 1) cervical kyphosis 2) Marked anterolisthesis C3 on C4 3) severe cervical stenosis 4) progressive focal motor deficit S/PAnterior cervical decompression and fusion C3-4 Cervical MRI as outpatient showed severe C3-C4 anterolisthesis with moderate to severe central canal stenosis and shallow disc bulge. Severe right foraminal stenosis at C7-T1. Planning for cervical fusion on Sunday by Dr Romeo Pain control with morphine Qualifiers: Kyphosis type: unspecified Qualified Code(s): M40.202 - Unspecified kyphosis, cervical region (2) Anterolisthesis Current Visit: Yes Status: Acute (3) Cervical stenosis of spinal canal Current Visit: Yes Status: Chronic Assessment and plan: 03/31/16 No change in symptomatology Surgery planned (4) HTN (hypertension) Current Visit: Yes Status: Chronic Assessment and plan: Elevated likely secondary to pain hydralazine as needed and continue metoprolol BP stable Qualifiers: Hypertension type: essential hypertension Qualified Code(s): I10 - Essential (primary) hypertension (5) Rotator cuff arthropathy Current Visit: No Status: Acute Qualifiers: Laterality: right Qualified Code(s): M12.811 - Other specific arthropathies , not elsewhere classified, right shoulder (6) Dementia Current Visit: No Status: Chronic Assessment and plan: Continue Aricept Qualifiers: Dementia type: unspecified type Dementia behavioral disturbance: without behavioral disturbance Qualified Code(s): F03.90 - Unspecified dementia without behavioral disturbance - Time Spent With Patient Greater than 35 minutes - Subjective Interval history: Denies any chest pain, no shortness of breath, no abdominal pain, no dysuria. No fevers overnight her blood pressure has been elevated in the 160s. Complains of mild headache. Complains of upper airway congestion, mild neck pain. - Constitutional Vitals: Temp Pulse Resp BP Pulse Ox 98.1 F 72 16 101/58 94 L 04/02/16 10:44 04/02/16 10:44 04/02/16 10:44 04/02/16 10:44 04/02/16 10:44 General appearance: Present: cooperative, A&O X 3, pleasant, no acute distress, answers questions appropriately - Head Head exam: Present: atraumatic, normocephalic - Eye Eye exam: Present: PERRL, conjuntiva pink, sclera anicteric Pupils: Present: PERRL - Neck Neck exam general surgery: Present: supple, trachea midline. Absent: lymphadenopathy - Respiratory Respiratory exam: Present: CTAB. Absent: accessory muscle use, rales, rhonchi, wheezes - Cardiovascular Cardiovascular exam: Present: RRR, +S1, +S2. Absent: diastolic murmur, gallop, rubs, systolic murmur - GI/Abdominal GI/Abdominal exam: Present: normal bowel sounds, soft, no peritoneal signs. Absent: distended, tenderness - Extremities Exam Extremities exam: Present: warm, radial pulses palpable and symetrical. Absent : calf tenderness, cyanotic, pedal edema - Neurological Exam Neurological exam: Present: CN II-XII intact, oriented X3, no focal deficits. Absent: pronater drift, facial droop, speech deficit Additional comments: Upper extremities weakness 4 out of 5 mostly evident in the right upper extremity - Skin Skin exam: Present: dry, intact Additional comments: mid anterior cervical wound , no hematoma or signs of infection Internal Medicine: Result - Labs CBC & Chem 7: 03/31/16 06:20 03/31/16 06:20 - ABG Interpretation ABG results: PT/INR, D-dimer PT 11.3 Seconds (9.4-12.1) 03/30/16 18:28 - VTE Documentation of Mechanical Device: Intermittent pneumatic compression device Consult Discharge Plan - Plan Referrals: Ava Lazar, FOREST SCIENTIST [Primary Care Provider] -
[2016-04-02] MEDS: (Memantine Hcl [Namenda Xr] 14 MG) PO SCH (17:46)
[2016-04-02] MEDS: Melatonin 3 MG TABLET PO PRN (21:01)
[2016-04-02] MEDS: traZODone 50 MG TABLET PO SCH (21:01)
[2016-04-03] MEDS: *HR* OxyCODONE/APAP 5/325 TABLET PO PRN ×4 (04:25→22:42)
[2016-04-03] MEDS: Isosorbide MONOnitrate (24 HR) 30 MG TAB.ER.24H PO SCH ×2 (06:07→16:40)
--- NOTE | 2016-04-03 06:31 | Internal Med Progress Note ---
<Karthik Washington - Last Filed: 04/03/16 06:54> Date of Encounter: 04/03/16 Time of Encounter: 06:28 - Assessment and plan (1) Cervical kyphosis Current Visit: Yes Status: Chronic Assessment and plan: 1) cervical kyphosis 2) Marked anterolisthesis C3 on C4 3) severe cervical stenosis 4) progressive focal motor deficit S/P Anterior cervical decompression and fusion C3-4 Cervical MRI as outpatient showed severe C3-C4 anterolisthesis with moderate to severe central canal stenosis and shallow disc bulge. Severe right foraminal stenosis at C7-T1. Planning for cervical fusion on Sunday by Dr Romeo Continue pain control with morphine Qualifiers: Kyphosis type: unspecified Qualified Code(s): M40.202 - Unspecified kyphosis, cervical region (2) Anterolisthesis Current Visit: Yes Status: Acute Assessment and plan: No change in symptomatology Surgery planned (3) Cervical stenosis of spinal canal Current Visit: Yes Status: Chronic Assessment and plan: 03/31/16 No change in symptomatology Surgery planned (4) HTN (hypertension) Current Visit: Yes Status: Chronic Assessment and plan: Elevated likely secondary to pain hydralazine as needed and continue metoprolol BP stable Qualifiers: Hypertension type: essential hypertension Qualified Code(s): I10 - Essential (primary) hypertension (5) Rotator cuff arthropathy Current Visit: No Status: Acute Qualifiers: Laterality: right Qualified Code(s): M12.811 - Other specific arthropathies , not elsewhere classified, right shoulder (6) Dementia Current Visit: No Status: Chronic Assessment and plan: Continue Aricept Qualifiers: Dementia type: unspecified type Dementia behavioral disturbance: without behavioral disturbance Qualified Code(s): F03.90 - Unspecified dementia without behavioral disturbance - Subjective Interval history: Patient seen and examined at bedside. States her pain following surgery is only mild. She denies CP, SOB - Constitutional Vitals: Temp Pulse Resp BP Pulse Ox 97.6 F 70 16 119/72 94 L 04/03/16 06:19 04/03/16 06:19 04/03/16 06:19 04/03/16 06:19 04/03/16 06:19 General appearance: Present: cooperative, A&O X 3, pleasant, no acute distress, answers questions appropriately - Head Head exam: Present: atraumatic, normocephalic - Eye Eye exam: Present: PERRL, conjuntiva pink, sclera anicteric Pupils: Present: PERRL - Neck Neck exam general surgery: Present: supple, trachea midline. Absent: lymphadenopathy - Respiratory Respiratory exam: Present: CTAB. Absent: accessory muscle use, rales, rhonchi, wheezes - Cardiovascular Cardiovascular exam: Present: RRR, +S1, +S2. Absent: diastolic murmur, gallop, rubs, systolic murmur - GI/Abdominal GI/Abdominal exam: Present: normal bowel sounds, soft, no peritoneal signs. Absent: distended, tenderness - Extremities Exam Extremities exam: Present: warm, radial pulses palpable and symetrical. Absent : calf tenderness, cyanotic, pedal edema - Neurological Exam Neurological exam: Present: CN II-XII intact, oriented X3. Absent: pronater drift, facial droop, speech deficit Additional comments: 4/5 weakness right upper extremity - Skin Skin exam: Present: dry, intact Internal Medicine: Result - Labs CBC & Chem 7: 03/31/16 06:20 03/31/16 06:20 - ABG Interpretation ABG results: PT/INR, D-dimer PT 11.3 Seconds (9.4-12.1) 03/30/16 18:28 - VTE Documentation of Mechanical Device: Intermittent pneumatic compression device Consult Discharge Plan - Plan Referrals: Ava Lazar, IT APPLICATION ADMINISTRATOR [Primary Care Provider] - <Luis Alberto Cee H - Last Filed: 04/03/16 14:05> - Assessment and plan (1) Cervical kyphosis Current Visit: Yes Status: Chronic Qualifiers: Kyphosis type: unspecified Qualified Code(s): M40.202 - Unspecified kyphosis, cervical region (2) Anterolisthesis Current Visit: Yes Status: Acute (3) Cervical stenosis of spinal canal Current Visit: Yes Status: Chronic (4) HTN (hypertension) Current Visit: Yes Status: Chronic Qualifiers: Hypertension type: essential hypertension Qualified Code(s): I10 - Essential (primary) hypertension (5) Rotator cuff arthropathy Current Visit: No Status: Acute Qualifiers: Laterality: right Qualified Code(s): M12.811 - Other specific arthropathies , not elsewhere classified, right shoulder (6) Dementia Current Visit: No Status: Chronic Qualifiers: Dementia type: unspecified type Dementia behavioral disturbance: without behavioral disturbance Qualified Code(s): F03.90 - Unspecified dementia without behavioral disturbance - Constitutional Vitals: Temp Pulse Resp BP Pulse Ox 97.6 F 73 20 96/67 95 04/03/16 13:20 04/03/16 13:20 04/03/16 13:20 04/03/16 13:20 04/03/16 13:20 Internal Medicine: Result - Labs CBC & Chem 7: 03/31/16 06:20 03/31/16 06:20 - ABG Interpretation ABG results: PT/INR, D-dimer PT 11.3 Seconds (9.4-12.1) 03/30/16 18:28 - Attending Attestation Surgical wound in the anterior cervical area 3 cm in the mid line covered by dressing no signs of hematoma or erythema/infection. Surgical for procedure scheduled for tomorrow I examined this patient and my medical decision-making was reviewed with the HIDE SPREADER/PA/Advanced Practice Nurse/Resident Physician. I agree with the documented findings, disposition and treatment plan as described except to the extent set forth below.
[2016-04-03] MEDS: Loratadine 10 MG TABLET PO SCH (08:57)
[2016-04-03] MEDS: Multivit/Ca/Min/Fe/FA 1 TAB TABLET PO SCH (08:58)
[2016-04-03] MEDS: *HR* LORazepam 0.5 MG TABLET PO SCH (08:58)
[2016-04-03] MEDS: Cholecalciferol (D-3) 1,000 UNIT TABLET PO SCH (08:58)
[2016-04-03] MEDS: DYMISTA NS SCH (08:59)
[2016-04-03] MEDS: Pantoprazole 40 MG VIAL IVP SCH (08:59)
[2016-04-03] MEDS: Aspirin Enteric Coated 325 MG Tablet PO SCH (08:59)
[2016-04-03] MEDS: Ondansetron 4 MG/2 ML VIAL IVP PRN (09:47)
--- NOTE | 2016-04-03 16:11 | Spine Progress Note ---
Date of Encounter: 04/03/16 Time of Encounter: 16:10 - Assessment and Plan (1) Cervical kyphosis Current Visit: Yes Status: Chronic Qualifiers: Kyphosis type: unspecified Qualified Code(s): M40.202 - Unspecified kyphosis, cervical region (2) Focal motor deficit Current Visit: Yes Status: Acute (3) Cervical stenosis of spinal canal Current Visit: Yes Status: Chronic Subjective Principal diagnosis: cervical kyphosis, cervical stenosis, focal motor deficit, anterolisthesis Interval history: The patient is without complaints. Afebrile vital signs are stable. Incision is clean dry and intact. Neurovascularly intact with regard to upper extremities but right arm abduction weakness persists. Fires all upper and lower extremity motor groups. Radiiograph satisfactory. Assessment :stable. Plan mobilize ,continue analgesics, will need posterior cervical stabilization procedure likely Sunday. Objective Vital signs: Vital Signs Temp Pulse Resp BP Pulse Ox 04/03/16 15:02 97.7 F 73 18 116/73 94 L 04/03/16 13:20 97.6 F 73 20 96/67 95 04/03/16 11:36 97.5 F L 73 16 133/76 92 L 04/03/16 08:00 97.4 F L 73 18 104/63 92 L 04/03/16 06:19 97.6 F 70 16 119/72 94 L 04/03/16 00:13 97.9 F 84 16 125/76 96 04/02/16 20:22 98.2 F 72 15 123/80 92 L Intake and Output 04/03/16 04/03/16 04/03/16 07:59 15:59 23:59 Intake Total 250 / 250 830 / 830 Balance 250 / 250 830 / 830 Intake: Oral 250 / 250 830 / 830 Other: Meal Breakfast Percent of Meal Consumed 100% # Voids 1 - Labs CBC & BMP: 03/31/16 06:20 03/31/16 06:20 Labs: Abnormal lab results MPV 9.2 fL (9.4-12.4) L 03/31/16 06:20 Carbon Dioxide 30 mEq/L (19-29) H 03/31/16 06:20 BUN 22 mg/dL (7-20) H 03/31/16 06:20 BUN/Creatinine Ratio 27 (6-26) H 03/31/16 06:20 Ur Squamous Epith Cells Many per lpf (None-Few) H 03/30/16 16:34 Consult Discharge Plan - Plan Referrals: Ava Lazar, DIMENSION QUARRY SUPERVISOR [Primary Care Provider] -
[2016-04-03] MEDS: (Memantine Hcl [Namenda Xr] 14 MG) PO SCH (16:39)
[2016-04-03] MEDS: traZODone 50 MG TABLET PO SCH (20:54)
[2016-04-04] MEDS: Isosorbide MONOnitrate (24 HR) 30 MG TAB.ER.24H PO SCH ×2 (05:02→20:16)
[2016-04-04] MEDS: *HR* OxyCODONE/APAP 5/325 TABLET PO PRN ×3 (05:02→23:57)
--- NOTE | 2016-04-04 06:32 | Electrocardiograph Report ---
[place] [id number] Test Date: 2016-04-01 Pat Name: Yovana Retana Department: 114 Room: [facility] Gender: F Tile Classifier: : 1945 Requested By: Luis Alberto Cee Order Number: [id number] Reading MD: Rayshawn Scales MD Measurements Intervals [place] Rate: 70 P: 26 DC: 178 QRS: -20 QRSD: 91 T: 42 QT: 353 QTc: 374 Interpretive Statements SINUS RHYTHM MINIMAL VOLTAGE CRITERIA FOR LVH POOR R WAVE PROGRESSION Electronically Signed On 04-04-2016 6:30:29 EST by Rayshawn Scales MD
--- NOTE | 2016-04-04 06:39 | Internal Med Progress Note ---
<Karthik Washington - Last Filed: 04/05/16 10:30> Date of Encounter: 04/04/16 Time of Encounter: 06:35 - Assessment and plan (1) Cervical kyphosis Current Visit: Yes Status: Chronic Assessment and plan: 1) cervical kyphosis 2) Marked anterolisthesis C3 on C4 3) severe cervical stenosis 4) progressive focal motor deficit S/P Anterior cervical decompression and fusion C3-4 Cervical MRI as outpatient showed severe C3-C4 anterolisthesis with moderate to severe central canal stenosis and shallow disc bulge. Severe right foraminal stenosis at C7-T1. Planning for cervical fusion today by Dr Romeo Continue pain control with morphine Qualifiers: Kyphosis type: unspecified Qualified Code(s): M40.202 - Unspecified kyphosis, cervical region (2) Anterolisthesis Current Visit: Yes Status: Acute Assessment and plan: No change in symptomatology Surgery planned (3) Cervical stenosis of spinal canal Current Visit: Yes Status: Chronic Assessment and plan: 03/31/16 No change in symptomatology Surgery planned (4) HTN (hypertension) Current Visit: Yes Status: Chronic Assessment and plan: Elevated likely secondary to pain hydralazine as needed and continue metoprolol BP has been stable Qualifiers: Hypertension type: essential hypertension Qualified Code(s): I10 - Essential (primary) hypertension (5) Rotator cuff arthropathy Current Visit: No Status: Acute Qualifiers: Laterality: right Qualified Code(s): M12.811 - Other specific arthropathies , not elsewhere classified, right shoulder (6) Dementia Current Visit: No Status: Chronic Assessment and plan: Continue Aricept Qualifiers: Dementia type: unspecified type Dementia behavioral disturbance: without behavioral disturbance Qualified Code(s): F03.90 - Unspecified dementia without behavioral disturbance - Subjective Interval history: Patient seen and examined at bedside. States her pain following surgery is only mild and unchanged from yesterday. She denies CP, SOB - Constitutional Vitals: Temp Pulse Resp BP Pulse Ox 98.2 F 76 17 147/85 95 04/04/16 04:00 04/04/16 04:00 04/04/16 04:00 04/04/16 04:00 04/04/16 04:00 General appearance: Present: cooperative, A&O X 3, pleasant, no acute distress, answers questions appropriately - Head Head exam: Present: atraumatic, normocephalic - Eye Eye exam: Present: PERRL, conjuntiva pink, sclera anicteric Pupils: Present: PERRL - Neck Neck exam general surgery: Present: supple, trachea midline. Absent: lymphadenopathy - Respiratory Respiratory exam: Present: CTAB. Absent: accessory muscle use, rales, rhonchi, wheezes - Cardiovascular Cardiovascular exam: Present: RRR, +S1, +S2. Absent: diastolic murmur, gallop, rubs, systolic murmur - GI/Abdominal GI/Abdominal exam: Present: normal bowel sounds, soft, no peritoneal signs. Absent: distended, tenderness - Extremities Exam Extremities exam: Present: warm, radial pulses palpable and symetrical. Absent : calf tenderness, cyanotic, pedal edema Additional comments: Right shoulder tender to palpation, unchanged - Neurological Exam Neurological exam: Present: CN II-XII intact, oriented X3, no focal deficits. Absent: pronater drift, facial droop, speech deficit Additional comments: 4/5 strength right upper extremity - Skin Skin exam: Present: dry, intact Additional comments: Approximate 3cm surgical wound in the anterior cervical area is bandaged without signs of erythema, edema, exudate, streaking, or hematoma Internal Medicine: Result - Labs CBC & Chem 7: 04/04/16 12:11 04/04/16 12:11 - ABG Interpretation ABG results: PT/INR, D-dimer PT 11.3 Seconds (9.4-12.1) 03/30/16 18:28 - VTE Documentation of Mechanical Device: Intermittent pneumatic compression device Consult Discharge Plan - Plan Referrals: Silvia Milligan, PAC [Physician Appliquer Zigzag] - 04/18/16 8:00 am Ava Lazar, THOMAS [Primary Care Provider] - Jacinta Baca, PAC [Physician Appliquer Zigzag] - 05/02/16 9:50 am Debbi Hadley MD [Partnered Physician] - 06/19/16 9:50 am <Lyndon Mueller - Last Filed: 04/05/16 13:57> - Constitutional Vitals: Temp Pulse Resp BP Pulse Ox 98.0 F 69 18 152/84 99 04/05/16 11:30 04/05/16 11:30 04/05/16 11:30 04/05/16 11:30 04/05/16 11:30 Internal Medicine: Result - Labs CBC & Chem 7: 04/04/16 12:11 04/04/16 12:11 - ABG Interpretation ABG results: PT/INR, D-dimer PT 11.2 Seconds (9.4-12.1) 04/04/16 12:11 - Impressions Impressions Fluoroscopy 03/31/16 15:49 IMPRESSION: Intraprocedural fluoroscopic spot images as above. See separate procedure report for more information. D/ / Taras You MD / Taras You MD Interpreting Provider: Taras You MD Fluoroscopy 04/04/16 13:38 IMPRESSION: Intraprocedural fluoroscopic spot images as above. See separate procedure report for more information. D/ / 04/04/2016 17:59:55 Domenic Arevalo MD / [email or web address] Interpreting Provider: Domenic Arevalo MD Cervical Spine X-Ray 04/05/16 09:00 IMPRESSION: 1. Status post posterior fusion at C3 through C6. No hardware complication. Stable alignment. 2. Status post ACDF at C3-4. No complication. 3. Unchanged degenerative changes in the cervical spine. 4. Improved prevertebral soft tissue swelling and subcutaneous gas. New subcutaneous gas is seen in the posterior soft tissues. D/ / 04/05/2016 09:24:23 Mary Beth Polk MD / [email or web address] Interpreting Provider: Mary Beth Polk MD - Attending Attestation I examined this patient and my medical decision-making was reviewed with the INFORMATION ARCHITECT/PA/Advanced Practice Nurse/Resident Physician. I agree with the documented findings, disposition and treatment plan as described except to the extent set forth below. Stable, pending surgery. Will folllow. DVT prophylaxis.
[2016-04-04] MEDS: Loratadine 10 MG TABLET PO SCH (07:31)
[2016-04-04] MEDS: Aspirin Enteric Coated 325 MG Tablet PO SCH (07:31)
[2016-04-04] MEDS: DYMISTA NS SCH (07:32)
[2016-04-04] MEDS: Multivit/Ca/Min/Fe/FA 1 TAB TABLET PO SCH (07:32)
[2016-04-04] MEDS: Cholecalciferol (D-3) 1,000 UNIT TABLET PO SCH (07:33)
[2016-04-04] MEDS: *HR* LORazepam 0.5 MG TABLET PO SCH (10:11)
--- NOTE | 2016-04-04 11:31 | Anesthesia Evaluation PreOp ---
Date of Encounter: 04/04/16 Time of Encounter: 11:28 - Past History Planned Operation: C2-5 Posterior Cervical Fusion Cardiac History: HTN (Imdur, Metoprolol,), Hyperlipidemia (maintained on Lipitor ), Other ("Clean" cardiac cath 2002, but suffered severe coronary vasospasm causing cardac arrest. ECHO 11/11/2015 - EF>70%, perfusion imaging negative for ischemia/infarct. 03/31/2013 - LVEF 55-60% mild LV diastolic dysfx. RVSP = 37mmHG. Mild Pulm HTN) Pulmonary History: Denies Any Significant HX MOTOR BRAKEMAN History: Other (Cervical stenosis s/p ACDF on 03/31/16. Dementia maintained on Aricept maintained on Namenda. Parkinsonsism. Anxiety/Depression maintained on Lorazepam, Cymbalta, Trazadone. Schizophrenia w/ previous psychiatric hospitalization maintained on Seroquel) Other Medical History: GERD (maintained on Omeprazole) Anesthesia History: No Prior Anesthetic Complications, Past Anesthesia (C3-5 ACDF (4 days ago on 04/04/16 re: C3-4 anterolisthesis), R-total shoulder 02/21/16.) Alcohol Use: none Drug use: none Medications and Allergies Atorvastatin [Lipitor] 20 mg PO HS 03/08/15 [History] Azelastine/Fluticasone [Dymista Nasal [place]] 1 spray NS DAILY 03/08/15 [History] Cholecalciferol (Vitamin D3) [Vitamin D3] 5,000 unit PO DAILY 03/08/15 [History] Donepezil [Aricept] 10 mg PO DAILY 03/08/15 [History] Duloxetine [Cymbalta] 90 mg PO HS 03/08/15 [History] Isosorbide MONOnitrate (24 HR) [Imdur] 30 mg PO BID 03/08/15 [History] LORazepam [Lorazepam] 0.5 mg PO DAILY 03/08/15 [History] Loratadine [Claritin] 10 mg PO DAILY 03/08/15 [History] Melatonin 3 mg PO HS 03/08/15 [History] Memantine HCl [Namenda Xr] 14 mg PO QPM 03/08/15 [History] Metoprolol [Lopressor] 25 mg PO BID 03/08/15 [History] Multivitamin [Multi-Day Vitamins] 1 each PO DAILY 03/08/15 [History] Omeprazole 20 mg PO DAILY 03/08/15 [History] Potassium Chloride 20% [Potassium Chloride] 20 meq PO DAILY 03/08/15 [History] OxyCODONE Immed Rel [Roxicodone 5 MG] 5 - 10 mg PO Q6HR PRN #40 tablet 02/20/16 [Rx] Aspirin [Ecotrin] 325 mg PO DAILY 02/21/16 [History] Docusate [Colace] 100 mg PO DAILY 02/21/16 [History] HYDROcodone/Acet 5/325 mg [[place] 5-325 mg] 1 tab PO Q4H PRN 02/21/16 [History] Meloxicam [Mobic] 15 mg PO DAILY 02/21/16 [History] Nitroglycerin [Nitrostat] 0.4 mg SL AD PRN 02/21/16 [History] Promethazine [Phenergan] 25 mg PO BID PRN 02/21/16 [History] Quetiapine Fumarate [Seroquel] 200 mg PO QAM 02/21/16 [History] Quetiapine Fumarate [Seroquel] 400 mg PO HS 02/21/16 [History] Trazodone HCl 75 mg PO HS 03/30/16 [History] Allergies carbamazepine Adverse Reaction (Verified 03/08/15 16:59) unknown per patient Erythromycin Base Adverse Reaction (Verified 03/08/15 16:59) Diarrhea guaifenesin Adverse Reaction (Verified 03/08/15 16:59) MIGRAINES Macrolide Antibiotics Adverse Reaction (Verified 03/08/15 16:59) Diarrhea topiramate [From Topamax] Adverse Reaction (Verified 03/08/15 16:59) "FELT LIKE ON SPEED" PER PATIENT - Meds/Allergy Pre-op Review Medications Reviewed: Yes Allergies Reviewed: Yes Beta Blockers on Current Med List: Yes (Metoprolol) If Beta Blockers taken, Date/Time (Last Dose taken): 04/04/16 @ 1011 Anesthesia Results - Labs 03/31/16 06:20 03/31/16 06:20 Laboratory Results Impressions Chest X-Ray 03/30/16 21:04 IMPRESSION: Mild pulmonary vascular congestion. D/ / Omar Castanon MD / Omar Castanon MD Interpreting Provider: Omar Castanon MD Fluoroscopy 03/31/16 15:49 IMPRESSION: Intraprocedural fluoroscopic spot images as above. See separate procedure report for more information. D/ / Taras You MD / Taras You MD Interpreting Provider: Taras You MD Cervical Spine X-Ray 04/01/16 08:15 IMPRESSION: 1. Postsurgical changes are noted from an anterior C3-C4 fusion and discectomy without complication. 2. Pulmonary edema, more conspicuous. Follow-up chest radiograph may be of benefit for further evaluation. D/ / 04/01/2016 11:08:40 Jayce Williamson MD / keri Interpreting Provider: Jayce Williamson MD Laboratory Results Impressions Fluoroscopy 03/31/16 15:49 IMPRESSION: Intraprocedural fluoroscopic spot images as above. See separate procedure report for more information. D/ / Taras You MD / Taras You MD Interpreting Provider: Taras You MD Cervical Spine X-Ray 04/01/16 08:15 IMPRESSION: 1. Postsurgical changes are noted from an anterior C3-C4 fusion and discectomy without complication. 2. Pulmonary edema, more conspicuous. Follow-up chest radiograph may be of benefit for further evaluation. D/ / 04/01/2016 11:08:40 Jayce Williamson MD / keri Interpreting Provider: Jayce Williamson MD Chest X-Ray 04/04/16 00:00 IMPRESSION: Cardiomegaly with resolved pulmonary vascular congestion D/ / Obed Arguelles MD / Obed Arguelles MD Interpreting Provider: Obed Arguelles MD - Imaging EKG: image reviewed (70bpm SR, nonspecific T-wave abnormality) Chest x-ray: report reviewed (Pulmonary vascular congestion resolved (vs. )) Anesthesia Exam Vital Signs Temp Pulse Resp BP Pulse Ox 04/04/16 10:52 97.7 F 75 16 143/89 93 L 04/04/16 06:32 97.5 F L 73 16 133/76 92 L 04/04/16 04:00 98.2 F 76 17 147/85 95 04/04/16 00:00 98.0 F 71 17 151/91 94 L 04/03/16 21:08 95 04/03/16 20:30 98.2 F 73 17 156/93 94 L 04/03/16 15:02 97.7 F 73 18 116/73 94 L 04/03/16 13:20 97.6 F 73 20 96/67 95 Intake and Output 04/03/16 04/04/16 04/04/16 23:59 07:59 15:59 Intake Total 520 / 520 Output Total 400 / 400 300 / 300 Balance 120 / 120 -300 / -300 Intake: Oral 520 / 520 Output: Urine 400 / 400 300 / 300 Other: Meal Dinner Percent of Meal Consumed 100% # Voids 1 Height: 5'2" Weight: 207# BMI = 38 - HEENT Pupil (Motor): Pupils equal, EOMI Mallampati: II Teeth: Normal Oral Opening: Greater than 3 - MOTOR BRAKEMAN LOC: Oriented (Pt is lucid, appropriate and able to answer all questions appropriately) MOTOR BRAKEMAN Motor: Normal LUE, Normal Face, Deficit RUE, Deficit RLE (Ambulates w/ rollator), Deficit LLE MOTOR BRAKEMAN Sensory: Normal: RUE, LUE, Face, Deficit: RLE, LLE - Cardiac Rhythm: Regular Murmur: None - Pulmonary Breath Sounds: bilateral Clear Respiratory Effort: Symmetrical Anesthesia Assess/Plan ASA Score: 3 (HTN, Chol, Dementia, Parkinsonism) Modified Delia Scale for Level of Consciousness: Cooperative, oriented, and tranquil Anesthetic Plan: General Monitoring Plan: Standard Monitors Recovery Plan: PACU Anes Supervising Prov Stmt: Pt seen/evaluated, R&B Discussed, questions answered and consent obtained. Cortes Shields MD
[2016-04-04] MEDS ORDERED: Propofol 500 MG/50 ML INFUS..BTL ONE ×3 (12:11→15:25)
[2016-04-04] MEDS ORDERED: *HR* Propofol 200 MG/20 ML VIAL IVP ONE ×2 (12:15→16:56)
[2016-04-04] MEDS ORDERED: Dexamethasone 4 MG/ML VIAL ONE (12:15)
[2016-04-04] MEDS ORDERED: *HR* FentaNYL (PF) 100 MCG/2 ML VIAL ONE (12:15)
[2016-04-04] MEDS ORDERED: Ondansetron 4 MG/2 ML VIAL ONE ×2 (12:15→16:59)
[2016-04-04] MEDS ORDERED: *HR* Rocuronium Bromide 50 MG/5 ML VIAL ONE (12:15)
[2016-04-04] MEDS ORDERED: Lidocaine -MPF 2% 2 ML VIAL ONE (12:15)
[2016-04-04 12:19] LABS: Basophils % 0.5 %; Eosinophils # 0.2 K/mcL (0.0-0.6); Eosinophils % 5.2 %; Hematocrit 34.8 % (35.3-44.9); Immature Granulocytes % 0.5 % (0-4); Lymphocytes # 1.2 K/mcL (0.6-4.6); Lymphocytes % 28.6 %; Mean Corpuscular HGB Conc 31.6 g/dL (31.6-35.5); Mean Corpuscular Hemoglobin 29.6 pg (28.0-33.3); Mean Corpuscular Volume 93.8 fL (83.0-100.0); Mean Platelet Volume 8.7 fL (9.4-12.4); Monocytes # 0.4 K/mcL (0.0-1.3); Monocytes % 9.6 %; Neutrophils # 2.3 K/mcL (1.6-8.9); Platelet Count 154 K/mcL (140-400); Red Blood Count 3.71 M/mcL (3.82-4.97); Red Cell Distribution Width 13.7 % (11.5-14.5); Segmented Neutrophils % 55.6 %
[2016-04-04] MEDS ORDERED: Lidocaine -MPF 4% 5 ML AMPUL ONE (12:19)
[2016-04-04] MEDS ORDERED: *HR* Remifentanil 1 MG VIAL IVP ONE ×4 (12:20→17:02)
[2016-04-04 12:30] LABS: BUN/Creatinine Ratio 24 (6-26); Blood Urea Nitrogen 17 mg/dL (7-20); Calcium 8.7 mg/dL (8.6-10.8); Carbon Dioxide 30 mEq/L (19-29); Chloride 101 mEq/L (98-109); Glucose 97 mg/dL (70-99); Osmolality,Calculated 287 (280-300); Potassium 4.2 mEq/L (3.5-4.5); Sodium 138 mEq/L (136-145); eGFR For African Americans > 60 (> 60); eGFR For Non-African Americans > 60 (> 60)
[2016-04-04 12:32] LABS: Prothrombin Time 11.2 Seconds (9.4-12.1)
[2016-04-04] MEDS ORDERED: EPHEDrine 50 MG/ML VIAL ONE (13:17)
[2016-04-04] MEDS ORDERED: *HR* Phenylephrine 10 MG/ML VIAL ONE (14:11)
[2016-04-04] MEDS ORDERED: *HR* Morphine 10 MG/ML VIAL ONE (17:18)
--- NOTE | 2016-04-04 18:00 | Orthopedic Operative Note ---
Date of procedure: 04/04/16 Pre-op diagnosis: cervical kyphosis, cervical stenosis, anterolisthesis, focal motor deficit Post-op diagnosis: same Operation/Findings: Posterior cervical decompression and fusion C3-C6: Patient was brought to the operative theater where he successfully underwent general endotracheal intubation. She was given antibiotics prior to the start of the procedure. Compression boots and stockings were used for deep vein thrombosis prophylaxis. A Chance catheter was placed. Leads were placed on the upper extremities and lower extremities as well as the cranium. The neurologic monitoring personnel confirmed satisfactory readings prior to the start of the procedure. We placed [place] head rest securely on the occiput. The patient was turned prone on the operative table. The area from the mid occipital to the mid thoracic spine was prepped and draped in the usual sterile fashion posteriorly. An incision was made and centered over the C3-C6 cervical spinous processes in the midline. The scoring incision was deepened through the cervical fascia. We used Bovie cautery and Miguel elevators to carefully dissect the lateral masses and expose them from C3-C6. Radiographic confirmation was confirmed by the radiologist via a discussion. We then placed lateral mass screws at C3, C4, C5, and C6 bilaterally using standard techniques. 8 separate 3.5 x 12 mm lateral mass screws were placed uneventfully and confirmed via fluorographic views as having satisfactory placement. After placement of the lateral mass screws, we turned our attention to the decompression. We removed the ligamentum flavum and interspinous and supraspinous ligaments at C6-7. We proceeded proximally with the decompression. This includes a laminectomy of C5, C4, and C3. All intervening ligamentum flavum and ligamentous material was removed. Bone obtained from the laminectomies was saved in a separate sterile container for later use. After the decompression, the spinal cord could be clearly visualized from C3-C5 and was fully decompressed. It was seen to expand nicely. We copiously irrigated the wound. We then decorticated the facet joints and lateral masses from C3-4, C4-5, and C5-6 bilaterally until bleeding bone was obtained. We then used the autograft bone obtained from the laminectomy/decompression from C3-C6 as well as the p.m. putty and cancellous bone chips (Synthes) and placed it over the lateral masses and facet joints in these regions. We then placed rods within the screw heads from C3-C6 bilaterally. We subsequently placed screw caps over the Rods and locked and finally tightened the construct in standard fashion. We then closed the wound in layers with 1 Vicryl for the Fascia, 2-0 Vicryl for the more superficial fascia and 2-0 Vicryl was used for skin closure. Dermabond was paced over the wound. Sterile dressing was placed over the wound as well. Cervical collar was placed. Patient was turned supine and extubated on the Hospital Bed. The patient was in good condition at the end of the procedure. All sponge counts, needle counts, and Instruments were correct at the end of the procedure. Anesthesia: GETA, IV sedation Surgeon: Gino Macdonald Jr Estimated blood loss (cc): 400 Condition: stable Disposition: PACU
[2016-04-04] MEDS ORDERED: Ondansetron 4 MG/2 ML VIAL IVP PRN ×2 (18:15→22:42)
[2016-04-04] MEDS ORDERED: *HR* HYDROmorphone (PF) 1 MG/ML SYRINGE ONE (18:16)
[2016-04-04] MEDS: *HR* HYDROmorphone (PF) 1 MG/ML SYRINGE IVP PRN ×4 (18:18→18:50)
[2016-04-04] MEDS ORDERED: Acetaminophen IV 1,000 MG/100 ML INFUS..BTL IVPB ONE (18:19)
[2016-04-04] MEDS: *HR* Labetalol 100 MG/20 ML MDV IVP PRN ×2 (18:22→18:50)
[2016-04-04] MEDS ORDERED: Acetaminophen IV 1,000 MG/100 ML INFUS..BTL ONE (18:24)
--- NOTE | 2016-04-04 19:05 | Anesthesia Evaluation Post Op ---
Date of Encounter: 04/04/16 Time of Encounter: 19:03 - Vital Signs Vital Signs: Vital Signs/O2 Sat, Most Current Temp Pulse Resp BP Pulse Ox 97.4 F L 77 18 159/89 100 04/04/16 18:28 04/04/16 18:48 04/04/16 18:48 04/04/16 18:48 04/04/16 18:48 - Lungs Lungs: Clear Ascult./Percussion - Airway Airway: Non-obstructed - Cardiovascular Regular Rate - Mental Status Mental Status: Baseline Status (patient appears to have difficulty verbalizing words but answers Y/N questions appropriately for person/place/time.) - Pain Pain Scale: 8 (patient has baseline pain score of 8/10) Pain Scale used: Numeric (1 - 10) - Nausea Vomiting Nausea Vomiting: Not Present - Hydration Hydration: Ice chips, Chance catheter - Discharge PostOp Status: Transfer Patient to floor
[2016-04-04] MEDS: traZODone 50 MG TABLET PO SCH (20:16)
[2016-04-04] MEDS: (Memantine Hcl [Namenda Xr] 14 MG) PO SCH (20:30)
[2016-04-04] MEDS ORDERED: Melatonin 3 MG TABLET PO PRN (22:42)
[2016-04-04] MEDS ORDERED: Nitroglycerin 0.4 MG TAB.SUBL SL PRN (22:42)
[2016-04-04] MEDS ORDERED: *HR* Morphine 2 MG/ML SYRINGE IVP PRN (22:42)
[2016-04-04] MEDS ORDERED: Naloxone 0.4 MG/ML INJ IVP PRN (22:42)
[2016-04-04] MEDS ORDERED: Mag Hydrox/Al Hydrox/Simeth 30 ML UDC PO PRN (22:42)
[2016-04-04] MEDS ORDERED: NON-FORMULARY MEDICATION 1 EACH EACH (Quetiapine Fumarate [Seroquel] 400 MG) PO SCH (22:42)
[2016-04-04] MEDS ORDERED: TRAZODONE HCL 75 MG PO SCH (22:42)
[2016-04-04] MEDS: ceFAZolin 1,000 MG in D5% in Water (Mini-Bag+) 100 ML IVPB SCH (23:57)
[2016-04-05] MEDS ORDERED: ceFAZolin 1,000 MG in D5% in Water (Mini-Bag+) 100 ML IVPB SCH
[2016-04-05] MEDS: *HR* OxyCODONE/APAP 5/325 TABLET PO PRN ×5 (04:33→21:49)
[2016-04-05] MEDS: Isosorbide MONOnitrate (24 HR) 30 MG TAB.ER.24H PO SCH ×2 (04:34→16:12)
--- NOTE | 2016-04-05 06:26 | Internal Med Progress Note ---
<Karthik Washington - Last Filed: 04/05/16 11:48> Date of Encounter: 04/05/16 Time of Encounter: 06:26 - Assessment and plan (1) Cervical kyphosis Current Visit: Yes Status: Chronic Assessment and plan: 1) cervical kyphosis 2) Marked anterolisthesis C3 on C4 3) severe cervical stenosis 4) progressive focal motor deficit S/P Anterior cervical decompression and fusion C3-4 S/P cervical fusion C3-6 Continue pain medication Qualifiers: Kyphosis type: unspecified Qualified Code(s): M40.202 - Unspecified kyphosis, cervical region (2) Anterolisthesis Current Visit: Yes Status: Acute Assessment and plan: Status post cervical fusion (3) Cervical stenosis of spinal canal Current Visit: Yes Status: Chronic (4) HTN (hypertension) Current Visit: Yes Status: Chronic Assessment and plan: Elevated likely secondary to pain hydralazine as needed and continue metoprolol BP has been stable Qualifiers: Hypertension type: essential hypertension Qualified Code(s): I10 - Essential (primary) hypertension (5) Rotator cuff arthropathy Current Visit: No Status: Acute Qualifiers: Laterality: right Qualified Code(s): M12.811 - Other specific arthropathies , not elsewhere classified, right shoulder (6) Dementia Current Visit: No Status: Chronic Assessment and plan: Continue Aricept Qualifiers: Dementia type: unspecified type Dementia behavioral disturbance: without behavioral disturbance Qualified Code(s): F03.90 - Unspecified dementia without behavioral disturbance (7) DVT prophylaxis Current Visit: Yes Status: Acute Assessment and plan: Continue IPCDs - Subjective Interval history: Patient seen and examined.she was up walking with assistance to use the restroom. She states that her postoperative neck pain is significantly worse this time around compared to her first procedure, currently about 8/10. She denies CP, SOB, abdominal pain or any new issues - Constitutional Vitals: Temp Pulse Resp BP Pulse Ox 98.0 F 82 15 148/87 95 04/05/16 04:58 04/05/16 04:58 04/05/16 04:58 04/05/16 04:58 04/05/16 04:58 General appearance: Present: cooperative, A&O X 3, pleasant, no acute distress, answers questions appropriately - Head Head exam: Present: atraumatic, normocephalic - Eye Eye exam: Present: PERRL, conjuntiva pink, sclera anicteric Pupils: Present: PERRL - Neck Neck exam general surgery: Present: supple, trachea midline. Absent: lymphadenopathy - Respiratory Respiratory exam: Present: CTAB. Absent: accessory muscle use, rales, rhonchi, wheezes - Cardiovascular Cardiovascular exam: Present: RRR, +S1, +S2. Absent: diastolic murmur, gallop, rubs, systolic murmur - GI/Abdominal GI/Abdominal exam: Present: normal bowel sounds, soft, no peritoneal signs. Absent: distended, tenderness - Extremities Exam Extremities exam: Present: warm, radial pulses palpable and symetrical. Absent : calf tenderness, cyanotic, pedal edema - Neurological Exam Neurological exam: Present: CN II-XII intact, oriented X3, no focal deficits. Absent: pronater drift, facial droop, speech deficit - Skin Skin exam: Present: dry, intact Additional comments: Bandages present on anterior and posterior neck Internal Medicine: Result - Labs CBC & Chem 7: 04/04/16 12:11 04/04/16 12:11 Labs: Short CBC 04/04/16 Range/Units 12:11 WBC 4.1 L (4.3-11.1) K/mcL Hgb 11.0 L D (11.5-15.4) g/dL Hct 34.8 L (35.3-44.9) % Plt Count 154 (140-400) K/mcL Neutrophils # 2.3 (1.6-8.9) K/mcL BMP 04/04/16 12:11 Sodium 138 Potassium 4.2 Chloride 101 Carbon Dioxide 30 H BUN 17 Creatinine 0.72 Glucose 97 Calcium 8.7 - ABG Interpretation ABG results: PT/INR, D-dimer PT 11.2 Seconds (9.4-12.1) 04/04/16 12:11 - Impressions Impressions Chest X-Ray 04/04/16 00:00 IMPRESSION: Cardiomegaly with resolved pulmonary vascular congestion D/ / Obed Arguelles MD / Obed Arguelles MD Interpreting Provider: Obed Arguelles MD Fluoroscopy 04/04/16 13:38 IMPRESSION: Intraprocedural fluoroscopic spot images as above. See separate procedure report for more information. D/ / 04/04/2016 17:59:55 Domenic Arevalo MD / ruslan Interpreting Provider: Domenic Arevalo MD - VTE Documentation of Mechanical Device: Intermittent pneumatic compression device Consult Discharge Plan - Plan Referrals: Silvia Milligan, PAC [Physician Inspection And Testing Supervisor] - 04/18/16 8:00 am Ava Lazar CNP [Primary Care Provider] - Jacinta Baca, PAC [Physician Inspection And Testing Supervisor] - 05/02/16 9:50 am Debbi Hadley MD [Partnered Physician] - 06/19/16 9:50 am <Lyndon Mueller - Last Filed: 04/05/16 13:58> - Constitutional Vitals: Temp Pulse Resp BP Pulse Ox 98.0 F 69 18 152/84 99 04/05/16 11:30 04/05/16 11:30 04/05/16 11:30 04/05/16 11:30 04/05/16 11:30 Internal Medicine: Result - Labs CBC & Chem 7: 04/04/16 12:11 04/04/16 12:11 - ABG Interpretation ABG results: PT/INR, D-dimer PT 11.2 Seconds (9.4-12.1) 04/04/16 12:11 - Impressions Impressions Fluoroscopy 03/31/16 15:49 IMPRESSION: Intraprocedural fluoroscopic spot images as above. See separate procedure report for more information. D/ / Taras You MD / Taras You MD Interpreting Provider: Taras You MD Fluoroscopy 04/04/16 13:38 IMPRESSION: Intraprocedural fluoroscopic spot images as above. See separate procedure report for more information. D/ / 04/04/2016 17:59:55 Domenic Arevalo MD / ruslan Interpreting Provider: Domenic Arevalo MD Cervical Spine X-Ray 04/05/16 09:00 IMPRESSION: 1. Status post posterior fusion at C3 through C6. No hardware complication. Stable alignment. 2. Status post ACDF at C3-4. No complication. 3. Unchanged degenerative changes in the cervical spine. 4. Improved prevertebral soft tissue swelling and subcutaneous gas. New subcutaneous gas is seen in the posterior soft tissues. D/ / 04/05/2016 09:24:23 Mary Beth Polk MD / [email or web address] Interpreting Provider: Mary Beth Polk MD - Attending Attestation I examined this patient and my medical decision-making was reviewed with the PHOTO ENGRAVER/PA/Advanced Practice Nurse/Resident Physician. I agree with the documented findings, disposition and treatment plan as described except to the extent set forth below. Sytable. PT eval noted. ECF after discharge.
[2016-04-05] MEDS: ceFAZolin 1,000 MG in D5% in Water (Mini-Bag+) 100 ML IVPB SCH (07:39)
[2016-04-05] MEDS: Aspirin Enteric Coated 325 MG Tablet PO SCH (07:40)
[2016-04-05] MEDS: Cholecalciferol (D-3) 1,000 UNIT TABLET PO SCH (07:40)
[2016-04-05] MEDS: Loratadine 10 MG TABLET PO SCH (07:40)
[2016-04-05] MEDS: Multivit/Ca/Min/Fe/FA 1 TAB TABLET PO SCH (07:40)
[2016-04-05] MEDS: *HR* LORazepam 0.5 MG TABLET PO SCH (07:41)
[2016-04-05] MEDS: AZELASTINE NS SCH (07:42)
[2016-04-05] MEDS: FLUTICASONE NS SCH (07:42)
[2016-04-05] MEDS ORDERED: *HR* HYDROcodone/Acet 5/325 mg TABLET PO PRN (08:06)
[2016-04-05] MEDS ORDERED: QUETIAPINE FUMARATE 200 MG PO SCH (09:00)
[2016-04-05] MEDS ORDERED: (Memantine Hcl [Namenda Xr] 14 MG) PO SCH (18:00)
[2016-04-05] MEDS ORDERED: traZODone 50 MG TABLET PO SCH (21:00)
[2016-04-06 05:14] LABS: Basophils % 0.2 %; Eosinophils # 0.2 K/mcL (0.0-0.6); Eosinophils % 2.9 %; Hematocrit 29.9 % (35.3-44.9); Hemoglobin 9.6 g/dL (11.5-15.4); Immature Granulocytes % 0.6 % (0-4); Immature Platelets 1.7 % (1.1-6.1); Lymphocytes # 1.6 K/mcL (0.6-4.6); Lymphocytes % 29.8 %; Mean Corpuscular HGB Conc 32.1 g/dL (31.6-35.5); Mean Corpuscular Hemoglobin 30.1 pg (28.0-33.3); Mean Corpuscular Volume 93.7 fL (83.0-100.0); Mean Platelet Volume 9.7 fL (9.4-12.4); Monocytes # 0.6 K/mcL (0.0-1.3); Monocytes % 11.7 %; Neutrophils # 2.9 K/mcL (1.6-8.9); Platelet Count 199 K/mcL (140-400); Red Blood Count 3.19 M/mcL (3.82-4.97); Red Cell Distribution Width 14.1 % (11.5-14.5); Segmented Neutrophils % 54.8 %
[2016-04-06] MEDS: Isosorbide MONOnitrate (24 HR) 30 MG TAB.ER.24H PO SCH (05:51)
[2016-04-06] MEDS: *HR* OxyCODONE/APAP 5/325 TABLET PO PRN ×2 (05:51→09:53)
--- NOTE | 2016-04-06 06:28 | Internal Med Progress Note ---
<Karthik Washington - Last Filed: 04/06/16 08:21> Date of Encounter: 04/06/16 Time of Encounter: 06:26 - Assessment and plan (1) Cervical kyphosis Current Visit: Yes Status: Chronic Assessment and plan: 1) cervical kyphosis 2) Marked anterolisthesis C3 on C4 3) severe cervical stenosis 4) progressive focal motor deficit S/P Anterior cervical decompression and fusion C3-4 S/P cervical fusion C3-6 Continue pain medication Qualifiers: Kyphosis type: unspecified Qualified Code(s): M40.202 - Unspecified kyphosis, cervical region (2) Anterolisthesis Current Visit: Yes Status: Acute Assessment and plan: Status post cervical fusion (3) Cervical stenosis of spinal canal Current Visit: Yes Status: Chronic Assessment and plan: Ms. Denis reports that her right upper extremity range of motion has improved and her paresthesias have resolved (4) HTN (hypertension) Current Visit: Yes Status: Chronic Assessment and plan: Initially elevated on admission thought to be secondary to pain Blood pressure stabilized but spiked to 160s/90sfollowing cervical fusion BP early this morning = 114/70 Continue to monitor Continue metoprolol and hydralazine as needed Qualifiers: Hypertension type: essential hypertension Qualified Code(s): I10 - Essential (primary) hypertension (5) Rotator cuff arthropathy Current Visit: No Status: Acute Qualifiers: Laterality: right Qualified Code(s): M12.811 - Other specific arthropathies , not elsewhere classified, right shoulder (6) Dementia Current Visit: No Status: Chronic Assessment and plan: Continue Aricept and Namenda Qualifiers: Dementia type: unspecified type Dementia behavioral disturbance: without behavioral disturbance Qualified Code(s): F03.90 - Unspecified dementia without behavioral disturbance (7) DVT prophylaxis Current Visit: Yes Status: Acute Assessment and plan: Continue IPCDs - Subjective Interval history: Patient seen and examined at bedside. She continues to have postoperative neck pain. She states this improved significantly to the point where she had almost no pain after a good night's rest however when she got up this morning to use the restroom the pain returned to yesterday's level of about 8/10. She denies CP, SOB, abdominal pain or any new issues - Constitutional Vitals: Temp Pulse Resp BP Pulse Ox 98.3 F 72 15 114/70 95 04/06/16 00:43 04/06/16 00:43 04/06/16 00:43 04/06/16 00:43 04/06/16 00:43 General appearance: Present: cooperative, A&O X 3, pleasant, no acute distress, answers questions appropriately - Head Head exam: Present: atraumatic, normocephalic - Eye Eye exam: Present: PERRL, conjuntiva pink, sclera anicteric Pupils: Present: PERRL - Neck Neck exam general surgery: Present: supple, trachea midline. Absent: lymphadenopathy - Respiratory Respiratory exam: Present: CTAB. Absent: accessory muscle use, rales, rhonchi, wheezes - Cardiovascular Cardiovascular exam: Present: RRR, +S1, +S2. Absent: diastolic murmur, gallop, rubs, systolic murmur - GI/Abdominal GI/Abdominal exam: Present: normal bowel sounds, soft, no peritoneal signs. Absent: distended, tenderness - Extremities Exam Extremities exam: Present: warm, radial pulses palpable and symetrical. Absent : calf tenderness, cyanotic, pedal edema - Neurological Exam Neurological exam: Present: CN II-XII intact, oriented X3, no focal deficits. Absent: pronater drift, facial droop, speech deficit - Skin Skin exam: Present: dry, intact Internal Medicine: Result - Labs CBC & Chem 7: 04/06/16 04:50 04/04/16 12:11 Labs: Short CBC 04/06/16 Range/Units 04:50 WBC 5.2 (4.3-11.1) K/mcL Hgb 9.6 L (11.5-15.4) g/dL Hct 29.9 L (35.3-44.9) % Plt Count 199 (140-400) K/mcL Neutrophils # 2.9 (1.6-8.9) K/mcL - ABG Interpretation ABG results: PT/INR, D-dimer PT 11.2 Seconds (9.4-12.1) 04/04/16 12:11 - Impressions Impressions Fluoroscopy 03/31/16 15:49 IMPRESSION: Intraprocedural fluoroscopic spot images as above. See separate procedure report for more information. D/ / Taras You MD / Taras You MD Interpreting Provider: Taras You MD Fluoroscopy 04/04/16 13:38 IMPRESSION: Intraprocedural fluoroscopic spot images as above. See separate procedure report for more information. D/ / 04/04/2016 17:59:55 Domenic Arevalo MD / ruslan Interpreting Provider: Domenic Arevalo MD Cervical Spine X-Ray 04/05/16 09:00 IMPRESSION: 1. Status post posterior fusion at C3 through C6. No hardware complication. Stable alignment. 2. Status post ACDF at C3-4. No complication. 3. Unchanged degenerative changes in the cervical spine. 4. Improved prevertebral soft tissue swelling and subcutaneous gas. New subcutaneous gas is seen in the posterior soft tissues. D/ / 04/05/2016 09:24:23 Mary Beth Polk MD / alfred Interpreting Provider: Mary Beth Polk MD - VTE Documentation of Mechanical Device: Intermittent pneumatic compression device Consult Discharge Plan - Plan Additional Instructions: Discharge Instructions: Cervical Please call [facility] ([phone]), your Primary Care Physician, or report to the ER if you have any of the following symptoms: Fever greater that 101.5, increased pain/redness/drainage/odor for your incision site or any other concerning symptoms. ACTIVITY * May Shower * No Tub Baths * No Smoking * No Swimming * No Driving * Wear Collar when up walking MEDICATIONS: Upon discharge resume your home medications. Take all the medications as prescribed. Take a stool softener if taking narcotic pain medications. Stool softeners are only effective if you drink enough fluids. Drink 6-8 glass of water or fluids a day, unless this is not allowed for another health problem. Despite using stool softeners, if you haven't had a bowel movement in 3 days, please switch to a gentle laxative. Gentle laxatives are sold over the counter. You should have a bowel movement within 24 hours, if not call the office. You will be discharged from the hospital with a prescription for pain medication. You are encouraged to decrease the use of narcotic pain medication as tolerated. Should you require a refill, please call the office. It is best to call 48-72 hours in advance of needing a prescription refill so you don't run out of medication. WOUND CARE: Leave steri-strips in place until they fall off on their own. Pat dry when you get out of the shower. FOLLOW-UP: Please follow up with your surgeon in the orthopedic clinic in 2 weeks from the day of surgery. References: [employer] (www.[email or web address].org) Referrals: Silvia Milligan, PAC [Physician Sales Service Promoter] - 04/18/16 8:00 am Ava Lazar CNP [Primary Care Provider] - Jacinta Baca PAC [Physician Sales Service Promoter] - 05/02/16 9:50 am Debbi Hadley MD [Partnered Physician] - 06/19/16 9:50 am Prescriptions: OxyCODONE Immed Rel [Roxicodone 5 MG] 5 - 10 mg PO Q6HR PRN #40 tablet PRN Reason: Pain <Lyndon Mueller - Last Filed: 04/06/16 14:49> - Constitutional Vitals: Temp Pulse Resp BP Pulse Ox 98.0 F 70 16 146/75 95 04/06/16 11:24 04/06/16 11:24 04/06/16 11:24 04/06/16 11:24 04/06/16 11:24 Internal Medicine: Result - Labs CBC & Chem 7: 04/06/16 04:50 04/06/16 08:50 Labs: Short CBC 04/06/16 Range/Units 04:50 WBC 5.2 (4.3-11.1) K/mcL Hgb 9.6 L (11.5-15.4) g/dL Hct 29.9 L (35.3-44.9) % Plt Count 199 (140-400) K/mcL Neutrophils # 2.9 (1.6-8.9) K/mcL BMP 04/06/16 08:50 Sodium 139 Potassium 3.7 Chloride 99 Carbon Dioxide 30 H BUN 12 Creatinine 0.74 Glucose 119 H Calcium 9.2 - ABG Interpretation ABG results: PT/INR, D-dimer PT 11.2 Seconds (9.4-12.1) 04/04/16 12:11 - Impressions Impressions Cervical Spine X-Ray 04/05/16 09:00 IMPRESSION: 1. Status post posterior fusion at C3 through C6. No hardware complication. Stable alignment. 2. Status post ACDF at C3-4. No complication. 3. Unchanged degenerative changes in the cervical spine. 4. Improved prevertebral soft tissue swelling and subcutaneous gas. New subcutaneous gas is seen in the posterior soft tissues. D/ / 04/05/2016 09:24:23 Mary Beth Polk MD / alfred Interpreting Provider: Mary Beth Polk MD - Attending Attestation I examined this patient and my medical decision-making was reviewed with the GROCERY CLERK/PA/Advanced Practice Nurse/Resident Physician. I agree with the documented findings, disposition and treatment plan as described except to the extent set forth below. Stable for discharge to SNF today. Follow up with spine surgery.
[2016-04-06 09:26] LABS: BUN/Creatinine Ratio 16 (6-26); Blood Urea Nitrogen 12 mg/dL (7-20); Calcium 9.2 mg/dL (8.6-10.8); Carbon Dioxide 30 mEq/L (19-29); Chloride 99 mEq/L (98-109); Glucose 119 mg/dL (70-99); Osmolality,Calculated 289 (280-300); Potassium 3.7 mEq/L (3.5-4.5); Sodium 139 mEq/L (136-145); eGFR For African Americans > 60 (> 60); eGFR For Non-African Americans > 60 (> 60)
[2016-04-06] MEDS: Loratadine 10 MG TABLET PO SCH (09:39)
[2016-04-06] MEDS: *HR* LORazepam 0.5 MG TABLET PO SCH (09:40)
[2016-04-06] MEDS: Aspirin Enteric Coated 325 MG Tablet PO SCH (09:40)
[2016-04-06] MEDS: Cholecalciferol (D-3) 1,000 UNIT TABLET PO SCH (09:41)
[2016-04-06] MEDS: Multivit/Ca/Min/Fe/FA 1 TAB TABLET PO SCH (09:41)
[2016-04-06] MEDS: FLUTICASONE NS SCH (09:42)
[2016-04-06] MEDS: AZELASTINE NS SCH (09:42)
[2016-04-06 11:25] VITALS: BP 146/75
--- NOTE | 2016-04-06 12:07 | Discharge Summary ---
<PadminiKarthik lebron - Last Filed: 04/06/16 13:04> Date of Encounter: 04/06/16 Time of Encounter: 12:05 - Discharge Diagnosis (1) Cervical kyphosis Priority: Primary Status: Chronic Qualifiers: Kyphosis type: unspecified Qualified Code(s): M40.202 - Unspecified kyphosis, cervical region (2) Anterolisthesis Priority: Primary Status: Acute (3) Cervical stenosis of spinal canal Priority: Primary Status: Chronic (4) HTN (hypertension) Priority: Secondary Status: Chronic Qualifiers: Hypertension type: essential hypertension Qualified Code(s): I10 - Essential (primary) hypertension (5) Rotator cuff arthropathy Priority: Secondary Status: Acute Qualifiers: Laterality: right Qualified Code(s): M12.811 - Other specific arthropathies , not elsewhere classified, right shoulder (6) Dementia Priority: Secondary Status: Chronic Qualifiers: Dementia type: unspecified type Dementia behavioral disturbance: without behavioral disturbance Qualified Code(s): F03.90 - Unspecified dementia without behavioral disturbance (7) DVT prophylaxis Priority: Secondary Status: Acute - Discharge Medications Prescriptions: OxyCODONE Immed Rel [Roxicodone 5 MG] 5 - 10 mg PO Q6HR PRN #40 tablet PRN Reason: Pain Home Medications: Atorvastatin [Lipitor] 20 mg PO HS 03/08/15 [History] Azelastine/Fluticasone [Dymista Nasal [place]] 1 spray NS DAILY 03/08/15 [History] Cholecalciferol (Vitamin D3) [Vitamin D3] 5,000 unit PO DAILY 03/08/15 [History] Donepezil [Aricept] 10 mg PO DAILY 03/08/15 [History] Duloxetine [Cymbalta] 90 mg PO HS 03/08/15 [History] Isosorbide MONOnitrate (24 HR) [Imdur] 30 mg PO BID 03/08/15 [History] LORazepam [Lorazepam] 0.5 mg PO DAILY 03/08/15 [History] Loratadine [Claritin] 10 mg PO DAILY 03/08/15 [History] Melatonin 3 mg PO HS 03/08/15 [History] Memantine HCl [Namenda Xr] 14 mg PO QPM 03/08/15 [History] Metoprolol [Lopressor] 25 mg PO BID 03/08/15 [History] Multivitamin [Multi-Day Vitamins] 1 each PO DAILY 03/08/15 [History] Omeprazole 20 mg PO DAILY 03/08/15 [History] Potassium Chloride 20% [Potassium Chloride] 20 meq PO DAILY 03/08/15 [History] Aspirin [Ecotrin] 325 mg PO DAILY 02/21/16 [History] Docusate [Colace] 100 mg PO DAILY 02/21/16 [History] Meloxicam [Mobic] 15 mg PO DAILY 02/21/16 [History] Nitroglycerin [Nitrostat] 0.4 mg SL AD PRN 02/21/16 [History] Promethazine [Phenergan] 25 mg PO BID PRN 02/21/16 [History] Quetiapine Fumarate [Seroquel] 200 mg PO QAM 02/21/16 [History] Quetiapine Fumarate [Seroquel] 400 mg PO HS 02/21/16 [History] Trazodone HCl 75 mg PO HS 03/30/16 [History] Donepezil [Aricept] 10 mg PO DAILY tablet 04/06/16 [Rx] OxyCODONE Immed Rel [Roxicodone 5 MG] 5 - 10 mg PO Q6HR PRN #40 tablet 04/06/16 [Rx] Quetiapine Fumarate [Seroquel] 200 mg PO QAM tablet 04/06/16 [Rx] Quetiapine Fumarate [Seroquel] 400 mg PO HS tablet 04/06/16 [Rx] Allergies/Adverse Reactions: Allergies carbamazepine Adverse Reaction (Verified 03/08/15 16:59) unknown per patient Erythromycin Base Adverse Reaction (Verified 03/08/15 16:59) Diarrhea guaifenesin Adverse Reaction (Verified 03/08/15 16:59) MIGRAINES Macrolide Antibiotics Adverse Reaction (Verified 03/08/15 16:59) Diarrhea topiramate [From Topamax] Adverse Reaction (Verified 03/08/15 16:59) "FELT LIKE ON SPEED" PER PATIENT Date of admission: 03/31/16 15:50 Primary care physician: Ava Lazar CNP Consults: 04/01/16 09:11 Consult to Occupational Therapy [CONS] Routine Comment: Evaluate, develop and implement POC Consult to Physical Therapy [CONS] Routine Comment: Evaluate, develop and implement POC Discharging clinician: Karthik Washington Anticipated date of discharge: 04/06/16 - Patient Status Disposition: Transfer SNF Condition: Fair Functional capacity at discharge: uses cane/walker Overall status at discharge: patient is progressing back to baseline - Discharge Instructions Follow Up With: Silvia Milligan PAC [Physician Scheduling Analyst] - 04/18/16 8:00 am Ava Lazar CNP [Primary Care Provider] - Jacinta Baca PAC [Physician Scheduling Analyst] - 05/02/16 9:50 am Debbi Hadley MD [Partnered Physician] - 06/19/16 9:50 am Additional Instructions: Discharge Instructions: Cervical Please call [facility] ([phone]), your Primary Care Physician, or report to the ER if you have any of the following symptoms: Fever greater that 101.5, increased pain/redness/drainage/odor for your incision site or any other concerning symptoms. ACTIVITY * May Shower * No Tub Baths * No Smoking * No Swimming * No Driving * Wear Collar when up walking MEDICATIONS: Upon discharge resume your home medications. Take all the medications as prescribed. Take a stool softener if taking narcotic pain medications. Stool softeners are only effective if you drink enough fluids. Drink 6-8 glass of water or fluids a day, unless this is not allowed for another health problem. Despite using stool softeners, if you haven't had a bowel movement in 3 days, please switch to a gentle laxative. Gentle laxatives are sold over the counter. You should have a bowel movement within 24 hours, if not call the office. You will be discharged from the hospital with a prescription for pain medication. You are encouraged to decrease the use of narcotic pain medication as tolerated. Should you require a refill, please call the office. It is best to call 48-72 hours in advance of needing a prescription refill so you don't run out of medication. WOUND CARE: Leave steri-strips in place until they fall off on their own. Pat dry when you get out of the shower. FOLLOW-UP: Please follow up with your surgeon in the orthopedic clinic in 2 weeks from the day of surgery. References: [employer] (www.[email or web address]) - Diet and Activity Activity: as per physical therapy Diet: advance to your usual diet Hospital course: Ms. Retana is a 70 year old female here for cervical kyphosis. Cervical MRI as outpatient showed severe C3-C4 anterolisthesis with moderate to severe central canal stenosis and shallow disc bulge. Severe right foraminal stenosis at C7-T1. She underwent Anterior cervical decompression and fusion C3-4 on 03/31 with subsequent Posterior cervical decompression and fusion C3-C6 on . She tolerated both surgeries well. On the day of discharge, 04/04/16, she was still having expected neck pain which was well controlled with pain medication. Continue cross hospitalization she had moderate elevation of her blood pressure in the 160s/90s and this was thought to be secondary to her neck pain. She was given hydralazine PRN blood pressure stabilized. She should continue her home prescription of metoprolol. Patient should spinal surgeon follow-up with Dr. Macdonald in 2 weeks - Time Spent with Patient Total time spent providing and/or coordinating discharge services: Greater than 30 minutes - Constitutional Vitals: Temp Pulse Resp BP Pulse Ox 98.0 F 70 16 146/75 95 04/06/16 11:24 04/06/16 11:24 04/06/16 11:24 04/06/16 11:24 04/06/16 11:24 General appearance: Present: cooperative, A&O X 3, pleasant, no acute distress, answers questions appropriately - VTE Documentation of Mechanical Device: Intermittent pneumatic compression device <Lyndon Mueller - Last Filed: 04/06/16 14:50> Date of admission: 03/31/16 15:50 Primary care physician: Ava Lazar CNP Consults: 04/01/16 09:11 Consult to Occupational Therapy [CONS] Routine Comment: Evaluate, develop and implement POC Consult to Physical Therapy [CONS] Routine Comment: Evaluate, develop and implement POC Hospital course: Ms. Retana is a 70 year old female - Time Spent with Patient Total time spent providing and/or coordinating discharge services: - Constitutional Vitals: Temp Pulse Resp BP Pulse Ox 98.0 F 70 16 146/75 95 04/06/16 11:24 04/06/16 11:24 04/06/16 11:24 04/06/16 11:24 04/06/16 11:24 - Attending Attestation I examined this patient and my medical decision-making was reviewed with the CRIME SCENE EVIDENCE TECHNICIAN/PA/Advanced Practice Nurse/Resident Physician. I agree with the documented findings, disposition and treatment plan as described except to the extent set forth below. Stable for discharge to SNF today. F/U with spine surgery.
--- NOTE | 2016-04-06 14:51 | Physician Discharge Referral ---
ExtendedCare Referral Info Transfer To: ECF Provider in Charge after Transfer: PCP Institutional Level of Care: Skilled - Transfer Medications Prescriptions: OxyCODONE Immed Rel [Roxicodone 5 MG] 5 - 10 mg PO Q6HR PRN #40 tablet PRN Reason: Pain Home Medications: Atorvastatin [Lipitor] 20 mg PO HS 03/08/15 [History] Azelastine/Fluticasone [Dymista Nasal [place]] 1 spray NS DAILY 03/08/15 [History] Cholecalciferol (Vitamin D3) [Vitamin D3] 5,000 unit PO DAILY 03/08/15 [History] Donepezil [Aricept] 10 mg PO DAILY 03/08/15 [History] Duloxetine [Cymbalta] 90 mg PO HS 03/08/15 [History] Isosorbide MONOnitrate (24 HR) [Imdur] 30 mg PO BID 03/08/15 [History] LORazepam [Lorazepam] 0.5 mg PO DAILY 03/08/15 [History] Loratadine [Claritin] 10 mg PO DAILY 03/08/15 [History] Melatonin 3 mg PO HS 03/08/15 [History] Memantine HCl [Namenda Xr] 14 mg PO QPM 03/08/15 [History] Metoprolol [Lopressor] 25 mg PO BID 03/08/15 [History] Multivitamin [Multi-Day Vitamins] 1 each PO DAILY 03/08/15 [History] Omeprazole 20 mg PO DAILY 03/08/15 [History] Potassium Chloride 20% [Potassium Chloride] 20 meq PO DAILY 03/08/15 [History] Aspirin [Ecotrin] 325 mg PO DAILY 02/21/16 [History] Docusate [Colace] 100 mg PO DAILY 02/21/16 [History] Meloxicam [Mobic] 15 mg PO DAILY 02/21/16 [History] Nitroglycerin [Nitrostat] 0.4 mg SL AD PRN 02/21/16 [History] Promethazine [Phenergan] 25 mg PO BID PRN 02/21/16 [History] Quetiapine Fumarate [Seroquel] 200 mg PO QAM 02/21/16 [History] Quetiapine Fumarate [Seroquel] 400 mg PO HS 02/21/16 [History] Trazodone HCl 75 mg PO HS 03/30/16 [History] Donepezil [Aricept] 10 mg PO DAILY tablet 04/06/16 [Rx] OxyCODONE Immed Rel [Roxicodone 5 MG] 5 - 10 mg PO Q6HR PRN #40 tablet 04/06/16 [Rx] Quetiapine Fumarate [Seroquel] 200 mg PO QAM tablet 04/06/16 [Rx] Quetiapine Fumarate [Seroquel] 400 mg PO HS tablet 04/06/16 [Rx] Allergies/Adverse Reactions: Allergies carbamazepine Adverse Reaction (Verified 03/08/15 16:59) unknown per patient Erythromycin Base Adverse Reaction (Verified 03/08/15 16:59) Diarrhea guaifenesin Adverse Reaction (Verified 03/08/15 16:59) MIGRAINES Macrolide Antibiotics Adverse Reaction (Verified 03/08/15 16:59) Diarrhea topiramate [From Topamax] Adverse Reaction (Verified 03/08/15 16:59) "FELT LIKE ON SPEED" PER PATIENT - Respiratory Orders Smoking Cessation: Smoking cessation has been advised. For more information, call the [place] Tobacco Quit Line at 3-481-LQYA-NOW. - Advance Directives Code Status: Full Code - Mobility Orders Other (As per PT, fall precautions.) - Rehabiliation Orders Rehab Potential: Fair Rehab Orders: ROM Exercises, Evaluation for Physical Therapy, Evaluation for Occupational Therapy - Diet Orders Cardiac CERTIFICATION: I certify that the transfer of the above named patient to an Extended Care Facility is necessary for the continuing treatment of the diagnosis listed. The above information is true and accurate reflection of patient's current condition. Confidential - Redisclosure prohibited without a patient's written consent.
== END 2016-04-06 15:13 | DRG 455 ==
LOC: 3ANU → SUATTDRO 13:25 → 3NENU 18:40 → SUATTDRO 03-31 15:50
PROVIDERS: ADMIT Internal Medicine; ATTEND Internal Medicine

== ENCOUNTER 2016-09-07 17:08 | Observation (INO) ==
[2016-09-07] MEDS ORDERED: *HR* Morphine 2 MG/ML SYRINGE IVP ONE (17:16)
[2016-09-07] MEDS ORDERED: Ondansetron 4 MG/2 ML VIAL IVP ONE (17:17)
[2016-09-07] MEDS ORDERED: Aspirin 325 MG TABLET PO ONE (17:22)
[2016-09-07] MEDS ORDERED: Nitroglycerin 0.4 MG TAB.SUBL SL PRN (17:23)
--- NOTE | 2016-09-07 17:24 | Emergency Department Note ---
Disposition Clinical Impression: Unstable angina Chest pain Qualifiers: Chest pain type: unspecified Qualified Code(s): R07.9 - Chest pain, unspecified Hypertension Qualifiers: Hypertension type: unspecified Qualified Code(s): I10 - Essential (primary) hypertension Left shoulder pain Qualifiers: Chronicity: unspecified Qualified Code(s): M25.512 - Pain in left shoulder Disposition: Admitted As Inpatient Condition: Fair Time of Disposition: 19:44 General Adult HPI - General Chief complaint: ED Extremity Problem,Nontraumatic Stated complaint: left arm pain Time Seen by Provider: 09/07/16 17:13 Source: EMS Mode of arrival: EMS Limitations: no limitations Nursing Notes Reviewed: Yes Vital Signs Reviewed: Yes - History of Present Illness HPI Narrative: 71-year-old female with a history of hypertension, coronary artery disease presents for evaluation of left arm pain. Patient states her pain started with abrupt onset approximately 2 large prior to arrival. Noted to be atraumatic. Patient states that she was having a headache then noted left arm pain. Suspect that patient states she has had intermittent chest pain was nonexertional resolved spontaneously. Patient reports her headache has improved. Denies any nausea vomiting or abdominal pain. Reports baseline neck pain. Patient states that her pain appears to be worse with movement is noted sharp reading on her left arm. That she has not had a recent evaluation of her heart. Does have a remote history of coronary artery disease. Pain Scale: 9 - Related Data Home Medications Medication Instructions Recorded Confirmed Atorvastatin [Lipitor] 20 mg PO HS 03/08/15 03/30/16 Azelastine/Fluticasone [Dymista 1 spray NS DAILY 03/08/15 03/30/16 Nasal [place]] Cholecalciferol (Vitamin D3) 5,000 unit PO DAILY 03/08/15 03/30/16 [Vitamin D3] DULoxetine [Cymbalta] 90 mg PO HS 03/08/15 03/30/16 Donepezil [Aricept] 10 mg PO DAILY 03/08/15 03/30/16 Isosorbide MONOnitrate (24 HR) 30 mg PO BID 03/08/15 03/30/16 [Imdur] LORazepam [Lorazepam] 0.5 mg PO DAILY 03/08/15 03/30/16 Loratadine [Claritin] 10 mg PO DAILY 03/08/15 03/30/16 Melatonin 3 mg PO HS 03/08/15 03/30/16 Memantine HCl [Namenda Xr] 14 mg PO QPM 03/08/15 03/30/16 Metoprolol [Lopressor] 25 mg PO BID 03/08/15 03/30/16 Multivitamin [Multi-Day Vitamins] 1 each PO DAILY 03/08/15 03/30/16 Omeprazole 20 mg PO DAILY 03/08/15 03/30/16 Potassium Chloride 20% [Potassium 20 meq PO DAILY 03/08/15 03/30/16 Chloride] Aspirin [Ecotrin] 325 mg PO DAILY 02/21/16 03/30/16 Docusate [Colace] 100 mg PO DAILY 02/21/16 03/30/16 Meloxicam [Mobic] 15 mg PO DAILY 02/21/16 03/30/16 Nitroglycerin [Nitrostat] 0.4 mg SL AD PRN 02/21/16 03/30/16 Promethazine [Phenergan] 25 mg PO BID PRN 02/21/16 03/30/16 Quetiapine Fumarate [Seroquel] 200 mg PO QAM 02/21/16 03/30/16 Quetiapine Fumarate [Seroquel] 400 mg PO HS 02/21/16 03/30/16 Trazodone HCl 75 mg PO HS 03/30/16 03/30/16 Previous Rx's Medication Instructions Recorded Donepezil [Aricept] 10 mg PO DAILY tablet 04/06/16 OxyCODONE Immed Rel [Roxicodone 5 5 - 10 mg PO Q6HR PRN #40 tablet 04/06/16 MG] Quetiapine Fumarate [Seroquel] 200 mg PO QAM tablet 04/06/16 Quetiapine Fumarate [Seroquel] 400 mg PO HS tablet 04/06/16 Allergies Allergy/AdvReac Type Severity Reaction Status Date / Time carbamazepine AdvReac unknown Verified 03/08/15 16:59 per patient Erythromycin Base AdvReac Diarrhea Verified 03/08/15 16:59 guaifenesin AdvReac MIGRAINES Verified 03/08/15 16:59 Macrolide Antibiotics AdvReac Diarrhea Verified 03/08/15 16:59 morphine AdvReac Nausea Verified 09/07/16 17:19 topiramate [From Topamax] AdvReac "FELT LIKE Verified 03/08/15 16:59 ON SPEED" PER PATIENT All systems ED: reviewed and negative except as stated. Constitutional: Reports: as per HPI. Denies: fever Eyes: Reports: as per HPI ENT ED: Reports: as per HPI Cardiovascular: Reports: as per HPI, chest pain. Denies: palpitations Respiratory: Reports: as per HPI. Denies: cough, dyspnea Gastrointestinal: Reports: as per HPI. Denies: abdominal pain, nausea, vomiting Genitourinary: Reports: as per HPI Musculoskeletal: Reports: as per HPI Integumentary: Reports: as per HPI Neurological: Reports: as per HPI. Denies: headache Psychiatric: Reports: as per HPI Endocrine: Reports: as per HPI Hematological/Lymphatic: Reports: as per HPI Allergic/Immunologic: Reports: as per HPI Past Medical History - Past Medical History Medical history: Reports: arthritis, dementia, hyperlipidemia, hypertension Psychiatric history: Reports: anxiety, bipolar, depression, schizophrenia, previous psychiatric hospitalization, other - Social History Smoking Status: Never smoker Smokeless Tobacco Status: No Alcohol use: Reports: none Drug use: Reports: none Physical Exam - General Limitations: no limitations General appearance: alert, in no apparent distress - Head Head exam: atraumatic, normocephalic, normal inspection - Eye Eye exam: Present: normal appearance, EOMI - ENT ENT exam: normal exam, mucous membranes moist - Neck Neck exam: Present: normal inspection, other (Healed midline posterior cervical incision.). Absent: tenderness - Chest Chest inspection: Present: normal inspection, symmetric chest wall rise. Absent : tenderness - Respiratory Respiratory exam: Present: normal lung sounds bilaterally. Absent: respiratory distress - Cardiovascular Cardiovascular exam: Present: regular rate, normal rhythm. Absent: systolic murmur - Abdominal Exam Abdominal exam: Present: soft, Non-Tender. Absent: guarding, rebound - Extremities Exam Extremities exam: Present: normal inspection. Absent: pedal edema - Expanded Upper Extremity Exam Shoulder exam: Present: normal inspection, tenderness (Isolated tenderness in the posterior left shoulder), other (Healed incision of the left shoulder consistent with orthopedic surgery.). Absent: swelling, ecchymosis Arm exam: Present: normal inspection Elbow exam: Present: normal inspection Forearm/Wrist exam: Present: normal inspection. Absent: tenderness Hand exam: Present: normal inspection Vascular exam: Normal: capillary refill, radial pulse - Back Exam Back exam: Present: normal inspection - Neurological Exam Neurological exam: Present: alert, oriented X3, CN II-XII intact - Skin Skin exam: Present: warm, dry, intact, normal color Course Course Narrative: 71-year-old female with a history of coronary artery disease and hypertension presents for evaluation of left arm pain. Patient's arm pain does appear to be intermittent provocative on exam. No evidence of crepitus or signs of infection. Patient also had intermittent chest pain earlier today. Patient does have risk factors for coronary artery disease. Patient will receive a cardiac evaluation with chest x-ray, EKG, troponin. The patient also received aspirin as well as nitroglycerin. Disposition pending. - Reevaluation(s) Reevaluation #1: Patient seen and examined. Noted some relief of pain with aspirin and nitroglycerin. Patient's agreeable to inpatient observation and monitoring. Time: 18:17 Reevaluation #2: Patients awaiting a bed upstairs. Patient no acute distress. Time: 19:38 Vital Signs Temperature 97.4 F L 09/07/16 17:10 Pulse Rate 70 09/07/16 17:10 Respiratory Rate 18 09/07/16 17:10 Blood Pressure 171/94 09/07/16 17:10 O2 Sat by Pulse Oximetry 96 09/07/16 17:10 Temperature 97.4 F L 09/07/16 17:10 Pulse Rate 70 09/07/16 17:10 Respiratory Rate 18 09/07/16 17:10 Blood Pressure 171/94 09/07/16 17:10 O2 Sat by Pulse Oximetry 96 09/07/16 17:10 Medical Decision Making - [facility] Narrative Medical decision making narrative: 71-year-old female with history of hypertension and CAD presents for evaluation of chest pain and left arm pain. Patient states her chest pain had resolved but noted to occur couple hours prior to arrival. Nonexertional diffuse across her chest. Patient's had some left arm pain. Notes left posterior shoulder pain. Patient received a cardiac evaluation with negative troponin, and no ischemic EKG. patient did have some reversible pain with movement of the left arm however given the patient's history and the fact that the pain was not entirely reproducible the patient would likely benefit from inpatient observation as well as training lab values. Patient's pain was relieved in the emergency department. Patient has no clinical signs symptoms consistent with a pulmonary embolism. Patient has no ripping or tearing chest pain that would be concerning for dissection. Patient is agreeable to inpatient observation with further cardiac evaluation. - Lab Data Lab results reviewed: Yes I reviewed the patient's lab results. Result diagrams: 09/07/16 17:31 09/07/16 17:31 Lab Results 09/07/16 09/07/16 09/07/16 Range/Units 17:31 17:31 17:31 WBC 4.0 L (4.3-11.1) K/mcL RBC 4.23 (3.82-4.97) M/mcL Hgb 12.4 (11.5-15.4) g/dL Hct 38.7 (35.3-44.9) % MCV 91.5 (83.0-100.0) fL MCH 29.3 (28.0-33.3) pg MCHC 32.0 (31.6-35.5) g/dL RDW 15.0 H (11.5-14.5) % Plt Count 204 (140-400) K/mcL MPV 8.6 L (9.4-12.4) fL Immature Gran % 0.0 (0-4) % Seg Neutrophils % 39.9 % Lymphocytes % 40.9 % Monocytes % 12.6 % Eosinophils % 6.1 % Basophils % 0.5 % Neutrophils # 1.6 (1.6-8.9) K/mcL Lymphocytes # 1.6 (0.6-4.6) K/mcL Monocytes # 0.5 (0.0-1.3) K/mcL Eosinophils # 0.2 (0.0-0.6) K/mcL Basophils # 0.0 (0.0-0.2) K/mcL Sodium 139 (136-145) mEq/L Potassium 4.1 (3.5-4.5) mEq/L Chloride 101 (98-109) mEq/L Carbon Dioxide 31 H (19-29) mEq/L BUN 14 (7-20) mg/dL Creatinine 0.86 (0.57-1.11) mg/dL Est GFR ( Amer) > 60 (> 60) Est GFR (Non-Af Amer) > 60 (> 60) BUN/Creatinine Ratio 16 (6-26) Glucose 95 (70-99) mg/dL Calculated Osmolality 288 (280-300) Calcium 9.6 (8.6-10.8) mg/dL Troponin I 0.00 (0-0.03) ng/mL - Radiology Data Radiology results reviewed: Yes I reviewed the patient's radiology results. Chest X-Ray 09/07/16 17:16 IMPRESSION: Stable appearance of the chest without acute cardiopulmonary process identified. D/ / Luis Huntley MD / Luis Huntley MD Interpreting Provider: Luis Huntley MD - EKG Data EKG #1 EKG attestation: Yes I reviewed and interpreted this EKG. EKG shows normal: sinus rhythm Rate: normal Rhythm: NSR [place]/QRS: left axis deviation Q waves: aVR T wave inversions noted in: aVL (Flattened T waves), aVR, v1 Interpretation: no acute changes, unchanged when compared to prior tracing (date ) (2/), nonspecific ST-T wave changes S.B.A.R. - S.B.A.R. Situation: Demographics Background: Presenting Complaint Assessment: Vital Signs, Course and respsone to treatment, Patient/Family Expectation Recommendation: Barrier(s) to disposition, Recommendation based on pending studies, treatments, or consults S.B.A.R. Report Given to: Laura GrullonBUbaldoAGlendy Repor Time: 18:32
[2016-09-07 17:44] LABS: Basophils % 0.5 %; Eosinophils # 0.2 K/mcL (0.0-0.6); Eosinophils % 6.1 %; Hematocrit 38.7 % (35.3-44.9); Hemoglobin 12.4 g/dL (11.5-15.4); Lymphocytes # 1.6 K/mcL (0.6-4.6); Lymphocytes % 40.9 %; Mean Corpuscular Hemoglobin 29.3 pg (28.0-33.3); Mean Corpuscular Volume 91.5 fL (83.0-100.0); Mean Platelet Volume 8.6 fL (9.4-12.4); Monocytes # 0.5 K/mcL (0.0-1.3); Monocytes % 12.6 %; Neutrophils # 1.6 K/mcL (1.6-8.9); Platelet Count 204 K/mcL (140-400); Red Blood Count 4.23 M/mcL (3.82-4.97); Segmented Neutrophils % 39.9 %
[2016-09-07] MEDS ORDERED: *HR* HYDROcodone/Acet 5/325 mg TABLET PO ONE (17:50)
[2016-09-07 17:54] LABS: Sodium 139 mEq/L (136-145)
[2016-09-07 17:55] LABS: BUN/Creatinine Ratio 16 (6-26); Blood Urea Nitrogen 14 mg/dL (7-20); Calcium 9.6 mg/dL (8.6-10.8); Carbon Dioxide 31 mEq/L (19-29); Chloride 101 mEq/L (98-109); Glucose 95 mg/dL (70-99); Osmolality,Calculated 288 (280-300); Potassium 4.1 mEq/L (3.5-4.5); eGFR For African Americans > 60 (> 60); eGFR For Non-African Americans > 60 (> 60)
--- NOTE | 2016-09-07 18:02 | Emergency Department Note ---
START Narrative - START START: I examined this patient and my medical decision-making was reviewed with the [employer]/PA/Advanced Practice Nurse/Resident Physician. I agree with the documented findings, disposition and treatment plan as described except to the extent set forth below. ED attending: Patient's emergency medicine resident Dr. Vu. Please see copy of this note for H&P evaluation and management and ED disposition. We both had independent [id number] time in contact with this patient. Briefly: 71-year-old female presents with a left arm pain chest discomfort has a hard score between [address]-T changes. Awaiting for troponin other screening labs. Admission anticipated. Disposition pending.
[2016-09-07] MEDS ORDERED: Ipratropium/Albuterol Neb 3 ML IH PRN (19:41)
[2016-09-07] MEDS ORDERED: Naloxone 0.4 MG/ML INJ IVP PRN (19:42)
[2016-09-07] MEDS ORDERED: Ondansetron 4 MG/2 ML VIAL IVP PRN (19:42)
[2016-09-07] MEDS ORDERED: *HR* HYDROmorphone (PF) 1 MG/ML SYRINGE IVP PRN (19:42)
[2016-09-07] MEDS ORDERED: Acetaminophen 325 MG TABLET PO PRN (19:42)
--- NOTE | 2016-09-07 19:46 | Internal Med History&Physical ---
Date of Encounter: 09/07/16 Time of Encounter: 19:44 Assessment and Plan (1) Chest pain Current visit: Yes Status: Acute Nonspecific First troponin is negative, monitor troponins Telemetry, order a limited echocardiogram Continue aspirin, metoprolol, nitroglycerin as needed, Lipitor, check lipid panel in the morning Consider cardiology consult if abnormalities are found on the echocardiogram Omeprazole for GI prophylaxis and Lovenox for DVT prophylaxis. The patient will be admitted for observation. Full code. Time spent on this admission 40 minutes. Qualifiers: Chest pain type: precordial pain Qualified Code(s): R07.2 - Precordial pain (2) Cervical stenosis of spinal canal Current visit: No Status: Chronic (3) Dementia Current visit: No Status: Chronic Continue home meds Qualifiers: Dementia type: Lewy body dementia Dementia behavioral disturbance: without behavioral disturbance Qualified Code(s): G31.83 - Dementia with Lewy bodies; F02.80 - Dementia in other diseases classified elsewhere without behavioral disturbance (4) HTN (hypertension) Current visit: No Status: Chronic Accelerated hypertension Order hydralazine IV as needed Qualifiers: Hypertension type: essential hypertension Qualified Code(s): I10 - Essential (primary) hypertension (5) Parkinson's disease Current visit: No Status: Chronic Internal Medicine - H&P: HPI Chief complaint: Chest pain Admitted From: Emergency Dept History of present illness: Ms. Retana is a 71 year old female with a past medical history of cardiac arrest due to severe vessel spasm, hypertension, lewy body dementia, cervical stenosis, Parkinson's, fibromyalgia, came to the emergency room complaining of intermittent chest pain that started yesterday sharp 10 out of 10 intensity across her chest but mainly on her little left upper extremity from her shoulder down to the elbow that lasted several minutes on and off. Patient had a normal stress test in October 2015 EKG shows flattening T waves in the inferior leads and nonspecific changes. White blood cell count is 4 blood pressure is 171/94. She was given a dose of aspirin at the emergency room, chest x-ray is unremarkable, nitroglycerin helped. Denies any other complaint at the moment Past Med Surg Social Fam HX - Past Medical History Medical history: arthritis, dementia (lewy bodies ), hyperlipidemia, hypertension, other (Chronic leukopenia, depression, anxiety, fibromyalgia, cardiac arrest due to severe coronary spasms, cervical stenosis, schizophrenia, Parkinson's) Psychiatric history: anxiety, bipolar, depression, schizophrenia, previous psychiatric hospitalization, other - Past Surgical History Surgical History: other (Bilateral shoulder total replacements, at least for left heart cardiac catheterization, right ankle surgery, appendectomy, neck mass resection) - Social History Smoking Status: Never smoker Smokeless Tobacco Status: No Alcohol use: none Drug use: none - Family History Father Living Status: Hx Family Cardiac Disorders: Yes Hx Family Respiratory Disorders: No Hx Family Cancer: Yes (Brain Cancer, Hodgkins) Hx Family GI Disorders: No Hx Family Endocrine Disorder: No Hx Family Neuromuscular Disorders: No Hx Family Neurologic Disorders: No Hx Family HEENT Disorders: No Hx Family Autoimmune Disorders: No - Additional Family History Additional family history: Father with Hodgkin's lymphoma and brain cancer, mother with hypertension Internal Medicine - H&P: Meds Atorvastatin [Lipitor] 20 mg PO HS 03/08/15 [History] Azelastine/Fluticasone [Dymista Nasal [place]] 1 spray NS DAILY 03/08/15 [History] Cholecalciferol (Vitamin D3) [Vitamin D3] 5,000 unit PO DAILY 03/08/15 [History] DULoxetine [Cymbalta] 90 mg PO HS 03/08/15 [History] Donepezil [Aricept] 10 mg PO DAILY 03/08/15 [History] Isosorbide MONOnitrate (24 HR) [Imdur] 30 mg PO BID 03/08/15 [History] LORazepam [Lorazepam] 0.5 mg PO DAILY 03/08/15 [History] Loratadine [Claritin] 10 mg PO DAILY 03/08/15 [History] Melatonin 3 mg PO HS 03/08/15 [History] Memantine HCl [Namenda Xr] 14 mg PO QPM 03/08/15 [History] Metoprolol [Lopressor] 25 mg PO BID 03/08/15 [History] Multivitamin [Multi-Day Vitamins] 1 each PO DAILY 03/08/15 [History] Omeprazole 20 mg PO DAILY 03/08/15 [History] Potassium Chloride 20% [Potassium Chloride] 20 meq PO DAILY 03/08/15 [History] Aspirin [Ecotrin] 325 mg PO DAILY 02/21/16 [History] Docusate [Colace] 100 mg PO DAILY 02/21/16 [History] Meloxicam [Mobic] 15 mg PO DAILY 02/21/16 [History] Nitroglycerin [Nitrostat] 0.4 mg SL AD PRN 02/21/16 [History] Promethazine [Phenergan] 25 mg PO BID PRN 02/21/16 [History] Quetiapine Fumarate [Seroquel] 200 mg PO QAM 02/21/16 [History] Quetiapine Fumarate [Seroquel] 400 mg PO HS 02/21/16 [History] Trazodone HCl 75 mg PO HS 03/30/16 [History] Donepezil [Aricept] 10 mg PO DAILY tablet 04/06/16 [Rx] OxyCODONE Immed Rel [Roxicodone 5 MG] 5 - 10 mg PO Q6HR PRN #40 tablet 04/06/16 [Rx] Quetiapine Fumarate [Seroquel] 200 mg PO QAM tablet 04/06/16 [Rx] Quetiapine Fumarate [Seroquel] 400 mg PO HS tablet 04/06/16 [Rx] Allergies carbamazepine Adverse Reaction (Verified 03/08/15 16:59) unknown per patient Erythromycin Base Adverse Reaction (Verified 03/08/15 16:59) Diarrhea guaifenesin Adverse Reaction (Verified 03/08/15 16:59) MIGRAINES Macrolide Antibiotics Adverse Reaction (Verified 03/08/15 16:59) Diarrhea morphine Adverse Reaction (Verified 09/07/16 17:19) Nausea topiramate [From Topamax] Adverse Reaction (Verified 03/08/15 16:59) "FELT LIKE ON SPEED" PER PATIENT All Systems PM: A 10-system review of systems was performed and is negative for pertinent findings except as documented above in the HPI. Review of systems: Denies any shortness of breath, other systems out of the 10 reviewed were negative - Constitutional Vitals: Temp Pulse Resp BP Pulse Ox 97.4 F L 70 18 171/94 96 09/07/16 17:10 09/07/16 17:10 09/07/16 17:10 09/07/16 17:10 09/07/16 17:10 General appearance: Present: A&O X 3 - Head Head exam: Present: atraumatic, normocephalic - Eye Eye exam: Present: PERRL, conjuntiva pink, sclera anicteric Pupils: Present: PERRL - Neck Neck exam general surgery: Present: supple, trachea midline. Absent: lymphadenopathy - Respiratory Respiratory exam: Present: CTAB. Absent: accessory muscle use, rales, rhonchi, wheezes - Cardiovascular Cardiovascular exam: Present: RRR, +S1, +S2. Absent: diastolic murmur, gallop, rubs, systolic murmur - GI/Abdominal GI/Abdominal exam: Present: normal bowel sounds, soft, no peritoneal signs. Absent: distended, tenderness - Extremities Exam Extremities exam: Present: warm, radial pulses palpable and symetrical. Absent : calf tenderness, cyanotic, pedal edema - Neurological Exam Neurological exam: Present: CN II-XII intact, oriented X3, no focal deficits. Absent: pronater drift, facial droop, speech deficit - Skin Skin exam: Present: dry, intact Internal Med - H&P Results - Labs CBC & Chem 7: 09/07/16 17:31 09/07/16 17:31
[2016-09-07] MEDS: Isosorbide MONOnitrate (24 HR) 30 MG TAB.ER.24H PO SCH (21:52)
[2016-09-07] MEDS: *HR* OxyCODONE Immed Rel 5 MG TABLET PO PRN (21:53)
[2016-09-08] MEDS ORDERED: Temazepam 15 MG CAPSULE PO PRN (01:57)
[2016-09-08] MEDS ORDERED: *HR* Enoxaparin 40 MG/0.4 ML SYRINGE SQ SCH (06:00)
[2016-09-08 07:05] LABS: BUN/Creatinine Ratio 17 (6-26); Blood Urea Nitrogen 15 mg/dL (7-20); Calcium 9.4 mg/dL (8.6-10.8); Carbon Dioxide 31 mEq/L (19-29); Chloride 101 mEq/L (98-109); Cholesterol 186 mg/dL (< 200); Glucose 93 mg/dL (70-99); HDL Cholesterol 46 mg/dL (40-59); LDL Cholesterol,Calculated 99 mg/dL (0-99); Osmolality,Calculated 287 (280-300); Potassium 4.3 mEq/L (3.5-4.5); Sodium 138 mEq/L (136-145); Triglycerides 205 mg/dL (< 150); eGFR For African Americans > 60 (> 60); eGFR For Non-African Americans > 60 (> 60)
[2016-09-08] MEDS: Isosorbide MONOnitrate (24 HR) 30 MG TAB.ER.24H PO SCH (08:32)
[2016-09-08] MEDS ORDERED: Potassium Chloride Elixir 20 MEQ/15 ML UDC PO SCH (09:00)
[2016-09-08] MEDS ORDERED: *HR* LORazepam 0.5 MG TABLET PO SCH (09:00)
[2016-09-08] MEDS ORDERED: Aspirin Enteric Coated 325 MG Tablet PO SCH (09:00)
[2016-09-08] MEDS: *HR* OxyCODONE Immed Rel 5 MG TABLET PO PRN (10:21)
[2016-09-08] MEDS ORDERED: *HR* OxyCODONE Immed Rel 5 MG TABLET PO ONE (11:26)
[2016-09-08] MEDS ORDERED: SUMAtriptan succinate 50 MG TABLET PO ONE (13:48)
[2016-09-08] MEDS ORDERED: *HR* Promethazine 25 MG/ML VIAL IVP ONE (13:49)
[2016-09-08 14:57] VITALS: BP 109/63
--- NOTE | 2016-09-08 16:18 | Electrocardiograph Report ---
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
--- NOTE | 2016-09-08 17:31 | Discharge Summary ---
Date of Encounter: 09/08/16 Time of Encounter: 13:30 (and 1700) - Discharge Diagnosis (1) Left shoulder pain Priority: Primary Status: Acute Comments: Unclear causation. Anginal equivalent unlikely given negative troponin 3 and unremarkable echocardiogram. She had her shoulder replaced in February 2015, plain films were unremarkable for acute processes. Pain had lessened greatly and range of motion was returning back to her arm prior to discharge. She requested to go home. Distal arm neurovascularly intact. (2) Chest pain Priority: Primary Status: Ruled-out Qualifiers: Chest pain type: precordial pain Qualified Code(s): R07.2 - Precordial pain (3) Dementia Priority: Secondary Status: Chronic Comments: appears mild. Patient was alert and oriented x3 during this admission. Qualifiers: Dementia type: Lewy body dementia Dementia behavioral disturbance: without behavioral disturbance Qualified Code(s): G31.83 - Dementia with Lewy bodies; F02.80 - Dementia in other diseases classified elsewhere without behavioral disturbance (4) Parkinson's disease Priority: Secondary Status: Chronic (5) Hypertension Priority: Secondary Status: Chronic Comments: Controlled, follow-up outpatient (6) DVT prophylaxis Priority: Primary Status: Acute Comments: Subcutaneous Lovenox while admitted (7) Headache Priority: Secondary Status: Chronic Comments: Patient stating she used to get headaches every day constantly up until approximately 5 years ago. She states that this headache started last week. She denies vision changes or balance issues. She does endorse pain behind her eyes and states that she used to have a lot of problems with her sinuses. Abated with Imitrex while admitted and patient requested to go home. - Discharge Medications Prescriptions: SUMAtriptan succinate [Imitrex] 50 mg PO Q2H PRN #12 tablet PRN Reason: Headache Home Medications: Atorvastatin [Lipitor] 20 mg PO HS 03/08/15 [History] Azelastine/Fluticasone [Dymista Nasal [place]] 1 spray NS DAILY 03/08/15 [History] Cholecalciferol (Vitamin D3) [Vitamin D3] 5,000 unit PO DAILY 03/08/15 [History] DULoxetine [Cymbalta] 90 mg PO HS 03/08/15 [History] Isosorbide MONOnitrate (24 HR) [Imdur] 30 mg PO BID 03/08/15 [History] LORazepam [Lorazepam] 0.5 mg PO DAILY PRN 03/08/15 [History] Loratadine [Claritin] 10 mg PO DAILY 03/08/15 [History] Melatonin 3 mg PO HS 03/08/15 [History] Memantine HCl [Namenda Xr] 14 mg PO QPM 03/08/15 [History] Metoprolol [Lopressor] 25 mg PO BID 03/08/15 [History] Multivitamin [Multi-Day Vitamins] 1 each PO DAILY 03/08/15 [History] Omeprazole 20 mg PO DAILY 03/08/15 [History] Potassium Chloride Elixir [Potassium Chloride] 20 meq PO DAILY 03/08/15 [History ] Aspirin [Ecotrin] 325 mg PO DAILY 02/21/16 [History] Docusate [Colace] 100 mg PO DAILY 02/21/16 [History] Meloxicam [Mobic] 15 mg PO DAILY 02/21/16 [History] Nitroglycerin [Nitrostat] 0.4 mg SL AD PRN 02/21/16 [History] Promethazine [Phenergan] 25 mg PO BID PRN 02/21/16 [History] Trazodone HCl 75 mg PO HS 03/30/16 [History] Donepezil [Aricept] 10 mg PO DAILY tablet 04/06/16 [Rx] OxyCODONE Immed Rel [Roxicodone 5 MG] 5 - 10 mg PO Q6HR PRN #40 tablet 04/06/16 [Rx] Quetiapine Fumarate [Seroquel] 200 mg PO QAM tablet 04/06/16 [Rx] Quetiapine Fumarate [Seroquel] 400 mg PO HS tablet 04/06/16 [Rx] Polyethylene Glycol 1000 [Polyethylene Glycol] 17 gm PO DAILY PRN 09/07/16 [ History] SUMAtriptan succinate [Imitrex] 50 mg PO Q2H PRN #12 tablet 09/08/16 [Rx] Allergies/Adverse Reactions: Allergies carbamazepine Adverse Reaction (Verified 09/07/16 20:09) unknown per patient Erythromycin Base Adverse Reaction (Verified 09/07/16 20:09) Diarrhea guaifenesin Adverse Reaction (Verified 09/07/16 20:09) MIGRAINES Macrolide Antibiotics Adverse Reaction (Verified 09/07/16 20:09) Diarrhea morphine Adverse Reaction (Verified 09/07/16 20:09) Nausea topiramate [From Topamax] Adverse Reaction (Verified 09/07/16 20:09) "FELT LIKE ON SPEED" PER PATIENT Procedures/tests Complete & Pending: Procedures Performed prior 72 hours Category Date Time Status EV limited echocardiogram Routine Y 09/08/16 19:39 Completed Date of admission: 09/07/16 18:44 Primary care physician: Renae Maria Consults: 09/07/16 21:29 Consult to Lawyer Probate [CONS] Routine Reason for SW Consult: discharge needs Discharging clinician: Tammy Brink Anticipated date of discharge: 09/08/16 (back to [facility]) - Patient Status Disposition: Home, Self-Care Condition: Fair Functional capacity at discharge: independent ambulation Overall status at discharge: patient is progressing back to baseline - Discharge Instructions Follow Up With: Renae Maria [Primary Care Provider] - Additional Instructions: Follow-up with primary care provider within one to 2 weeks - Diet and Activity Activity: increase activity as tolerated Diet: low fat, low cholesterol, low salt diet Hospital course: Ms. 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 Patient presented to the emergency department chief complaint of chest pain that started on the day prior to presentation. Patient stating most of her pain was present in her left upper extremity from her shoulder down to the elbow and would last several minutes at a time intermittently. Workup in the emergency department unremarkable other than initial hypertension. Chest x-ray negative. Patient was admitted to the hospitalist service for further evaluation and management. While admitted, patient denied chest pain stating her echo was only her upper arm hurt. Regardless, anginal equivalent was essentially ruled out with 3 negative troponins and an echocardiogram that was unremarkable with ejection fraction of 65%. Patient continued to deny chest pain or shortness of breath but complained of left upper arm pain. She had her left shoulder replaced in February 2015. She denied any injuries. Plain films of her left shoulder were unremarkable. Prior to discharge, the pain was resolving and her arm remains neurovascularly intact. Patient also complained of a headache for the past week prior to presentation. She denied any vision changes or balance issues. She denied any weaknesses or asymmetry. She states that she has a lengthy history of headaches that were constant up until approximately 5 years ago. Her headache was abated with Imitrex and she was discharged with a short supply of it. She was able tolerate a regular diet while admitted. She was discharged back to [facility] in stable condition with close outpatient follow-up recommended. ITS Impressions Chest X-Ray 09/07/16 17:16 IMPRESSION: Stable appearance of the chest without acute cardiopulmonary process identified. D/ / Luis Huntley MD / Luis Huntley MD Interpreting Provider: Luis Huntley MD Shoulder X-Ray 09/08/16 13:47 IMPRESSION: Stable changes of reverse shoulder arthroplasty. No acute osseous findings. D/ / Aravind Nelson MD / Aravind Nelson MD Interpreting Provider: Aravind Nelson MD Limited echocardiogram impressions: Normal LV systolic function, LVEF 65%. Normal right ventricular size and function. Valvular function was not assessed on this limited study. - Time Spent with Patient Total time spent providing and/or coordinating discharge services: - Constitutional Vitals: Temp Pulse Resp BP Pulse Ox 98.1 F 71 15 109/63 92 09/08/16 14:55 09/08/16 14:55 09/08/16 14:55 09/08/16 14:55 09/08/16 14:55 General appearance: Present: A&O X 3, pleasant, no acute distress, answers questions appropriately - Head Head exam: Present: atraumatic, normocephalic - Eye Eye exam: Present: PERRL, conjuntiva pink, sclera anicteric Pupils: Present: PERRL - Neck Neck exam general surgery: Present: supple, trachea midline. Absent: lymphadenopathy - Respiratory Respiratory exam: Present: CTAB. Absent: accessory muscle use, rales, respiratory distress, rhonchi, wheezes - Cardiovascular Cardiovascular exam: Present: RRR, +S1, +S2. Absent: diastolic murmur, gallop, rubs, systolic murmur - GI/Abdominal GI/Abdominal exam: Present: normal bowel sounds, soft, no peritoneal signs. Absent: distended, tenderness - Extremities Exam Extremities exam: Present: warm, radial pulses palpable and symetrical. Absent : calf tenderness, cyanotic, pedal edema - Expanded Upper Extremities Exam Shoulder exam: Present: normal inspection, tenderness. Absent: swelling Upper Arm exam: Present: normal inspection, tenderness. Absent: swelling Neurosensory exam: Present: 2-point discrimination, median nerve intact, radial nerve intact, ulnar nerve intact Vascular exam: Present: normal capillary refill. Absent: vascular compromise - Neurological Exam Neurological exam: Present: alert, CN II-XII intact, normal gait, oriented X3, no focal deficits, strengths equal and symetr throughout. Absent: pronater drift, facial droop, speech deficit - Skin Skin exam: Present: dry, intact, normal color, warm
== END 2016-09-08 18:53 | disposition home or self-care (01) ==
LOC: 3BNU 17:08 → EMEROO 17:08 → 3BNU 20:35
PROVIDERS: ADMIT Internal Medicine; ATTEND Nurse Practitioner Family

== ENCOUNTER 2017-02-22 13:47 | Observation (INO) ==
--- NOTE | 2017-02-22 11:41 | Discharge Summary ---
Date of Encounter: 02/26/17 Time of Encounter: 07:48 - Discharge Diagnosis (1) Loose total knee arthroplasty Priority: Secondary Status: Acute Qualifiers: Encounter type: subsequent encounter Qualified Code(s): T84.038D - Mechanical loosening of other internal prosthetic joint, subsequent encounter; Z96.659 - Presence of unspecified artificial knee joint; Z96.659 - Presence of unspecified artificial knee joint (2) HTN (hypertension) Priority: Secondary Status: Chronic Qualifiers: Hypertension type: unspecified Qualified Code(s): I10 - Essential (primary ) hypertension (3) Morbid obesity Priority: Secondary Status: Chronic (4) Heart disease Priority: Secondary Status: Chronic (5) Dementia Priority: Secondary Status: Chronic Qualifiers: Dementia type: unspecified type Dementia behavioral disturbance: without behavioral disturbance Qualified Code(s): F03.90 - Unspecified dementia without behavioral disturbance (6) Parkinson's disease Priority: Secondary Status: Chronic (7) Tobacco abuse Priority: Secondary Status: Chronic - Discharge Medications Home Medications: Atorvastatin [Lipitor] 20 mg PO HS 03/08/15 [History] Azelastine/Fluticasone [Dymista Nasal [place]] 1 spray NS DAILY 03/08/15 [History] Cholecalciferol (Vitamin D3) [Vitamin D3] 5,000 unit PO DAILY 03/08/15 [History] DULoxetine [Cymbalta] 30 mg PO HS 03/08/15 [History] Isosorbide MONOnitrate (24 HR) [Imdur] 30 mg PO BID 03/08/15 [History] LORazepam [Lorazepam] 0.5 mg PO DAILY PRN 03/08/15 [History] Loratadine [Claritin] 10 mg PO DAILY 03/08/15 [History] Melatonin 3 mg PO HS 03/08/15 [History] Memantine HCl [Namenda Xr] 14 mg PO QPM 03/08/15 [History] Metoprolol [Lopressor] 25 mg PO BID 03/08/15 [History] Multivitamin [Multi-Day Vitamins] 1 each PO DAILY 03/08/15 [History] Omeprazole 20 mg PO DAILY 03/08/15 [History] Potassium Chloride Elixir [Potassium Chloride] 20 meq PO DAILY 03/08/15 [History ] Aspirin [Ecotrin] 325 mg PO DAILY 02/21/16 [History] Docusate [Colace] 100 mg PO DAILY 02/21/16 [History] Meloxicam [Mobic] 15 mg PO DAILY 02/21/16 [History] Nitroglycerin [Nitrostat] 0.4 mg SL AD PRN 02/21/16 [History] Promethazine [Phenergan] 25 mg PO BID PRN 02/21/16 [History] Trazodone HCl 75 mg PO HS 03/30/16 [History] Donepezil [Aricept] 10 mg PO DAILY tablet 04/06/16 [Rx] Quetiapine Fumarate [Seroquel] 200 mg PO QAM tablet 04/06/16 [Rx] Quetiapine Fumarate [Seroquel] 400 mg PO HS tablet 04/06/16 [Rx] Polyethylene Glycol 1000 [Polyethylene Glycol] 17 gm PO DAILY PRN 09/07/16 [ History] SUMAtriptan succinate [Imitrex] 50 mg PO Q2H PRN #12 tablet 09/08/16 [Rx] Aspirin Enteric Coated [Aspirin EC] 325 mg PO BID #20 tablet. 02/22/17 [Rx] HYDROcodone/Acet 5/325 mg [[place] 5-325 mg] 1 tab PO Q6H PRN #20 tab 02/22/17 [Rx ] OxyCODONE Immed Rel [Roxicodone 5 MG] 5 mg PO Q6HR PRN 02/22/17 [History] Allergies/Adverse Reactions: 3 Allergy/AdvReac Type Severity Reaction Status Date / Time carbamazepine AdvReac unknown Verified 02/22/17 14:13 per patient Erythromycin Base AdvReac Diarrhea Verified 02/22/17 14:13 guaifenesin AdvReac MIGRAINES Verified 02/22/17 14:13 Macrolide Antibiotics AdvReac Diarrhea Verified 02/22/17 14:13 morphine AdvReac Nausea Verified 02/22/17 14:13 topiramate [From Topamax] AdvReac "FELT LIKE Verified 02/22/17 14:13 ON SPEED" PER PATIENT Primary care physician: Renae Maria - Patient Status Disposition: Transfer SNF Condition: Good Functional capacity at discharge: uses cane/walker Overall status at discharge: patient is progressing back to baseline - Discharge Instructions Follow Up With: Silvia Adams PAC [Physician Process Development Engineer] - 03/01/17 9:15 am (& also, February at 3:30 PM. Monday, March 27, 2017 at 08:30 AM. ) Edwin Kohli MD [Partnered Physician] - 03/28/17 5:00 pm Debbi Hadley MD [Partnered Physician] - 06/19/17 9:00 am Renae Maria [Primary Care Provider] - Additional Instructions: Discharge Instructions: Total Knee Replacement Please call [facility] ([phone]), your Primary Care Physician, or report to the Emergency Room if you have any of the following symptoms: Nausea, vomiting, fever greater that 101.5, swelling, chest pain, shortness of breath, increased pain/redness/drainage/odor for your incision site, numbness/ tingling, or any other concerning symptoms. ACTIVITY:Weight-bearing as tolerated. You may progress off support (crutches or walker) as tolerated. MEDICATIONS: Upon discharge resume your home medications. Take all the medications as prescribed. Take a stool softener if taking narcotic pain medications. Stool softeners are only effective if you drink enough fluids. Drink 6-8 glass of water or fluids a day, unless this is not allowed for another health problem. Despite using stool softeners, if you haven't had a bowel movement in 3 days, please switch to a gentle laxative. Gentle laxatives are sold over the counter. You should have a bowel movement within 24 hours, if not call the office. You will be discharged from the hospital with a prescription for pain medication. You are encouraged to decrease the use of narcotic pain medication as tolerated. Should you require a refill, please call the office. [facility] prescribes narcotic pain medication for only 4-6 weeks after surgery. If you require pain medication beyond this time period, you may be referred to your Primary Care Physician or to the Pain Clinic for further evaluation. Plan ahead for refills on pain medication as many narcotics either need to be picked up at the office or mailed. It is best to call 48-72 hours in advance of needing a prescription refill so you don't run out of medication. To help control the post-operative pain, you may take NSAIDs (Aleve,Advil, Motrin, Ibuprofen, Naprosyn) or Tylenol as prescribed on the bottle in addition to the pain medication. ANTICOAGULATION (blood thinners): Continue your Aspirin, Lovenox or Coumadin as prescribed to help prevent a blood clot in the leg or in the lungs. As long as your incision remains dry and you tolerate the NSAIDs (Aleve, Advil, Motrin, ibuprofen, naprosyn), it is OK to use the NSAIDS while you are taking your anticoagulation medication. Should your incision start to drain, stop the NSAID and contact our office. Common symptoms of blood clot in the legs include: localized pain, swelling, calf tenderness, redness or discoloration of the skin. Blood clot in the lung symptoms include: shortness of breath, rapid pulse, sweating, and chest pain that worsens with deep breathing, coughing up blood, lightheadedness, feelings of anxiety. If you experience any of these symptoms notify your physician immediately, go to the emergency room, or if having trouble breathing, call 911. WOUND CARE: Leave the dressing on for 7 to 10days. You may change the dressing if it becomes saturated greater than 50%. Do not get the dressing wet at anytime. Wash your hands with antibacterial soap, rinse and dry prior to any wound care. If you have radha the visiting nurse or rehab facility can remove the stapes 10-14 days after surgery and place steri-strips across the wound. Leave the steri-strips in place until they fall off on their won. You may let water from the shower run on top of the steri-strips. If you do not have a visiting nurse or rehab facility, you will need to return to the office at 10-14 days for the radha to be removed. If you have itching or redness around the dressing call the office. FOLLOW-UP: Please follow up with your surgeon in the orthopedic clinic in 4 weeks from the day of surgery. If you have radha that need to be removed, you will need to come back to the office in 10-14 days from the day of surgery. - Hospital Course Hospital course: Ms. Retana is a 71 year old female Status post revision femoral component The patient had an uneventful postoperative course. They received antibiotics and physical therapy and were discharged in stable condition. There will follow -up in the office in 2 weeks. - Time Spent with Patient Total time spent providing and/or coordinating discharge services:
[2017-02-22] MEDS ORDERED: Lidocaine -MPF 2% 2 ML VIAL ONE (13:52)
[2017-02-22] MEDS ORDERED: *HR* Propofol 200 MG/20 ML VIAL IVP ONE (13:52)
[2017-02-22] MEDS ORDERED: *HR* FentaNYL (PF) 100 MCG/2 ML VIAL ONE (13:53)
[2017-02-22] MEDS ORDERED: Bupivacaine/Clonidine Syringe 1 EACH SYRINGE ONE (13:55)
[2017-02-22] MEDS ORDERED: ROPIVACAINE HCL/PF 0.5% 30 ML VIAL ONE (13:55)
[2017-02-22] MEDS ORDERED: *HR* Labetalol 20 MG/4 ML SYRINGE IVP PRN (13:59)
[2017-02-22] MEDS ORDERED: *HR* Promethazine 25 MG/ML VIAL IVP PRN (13:59)
[2017-02-22] MEDS ORDERED: *HR* HYDROmorphone (PF) 1 MG/ML SYRINGE IVP PRN (13:59)
[2017-02-22] MEDS ORDERED: Ethanol\\Acetic Acid\\Na Ace\\Ben 1,000 ML IRRIG.SOLN IR ONE (14:20)
[2017-02-22] MEDS ORDERED: CeFAZolin Syr 2,000MG/20 ML 2,000 MG/20 ML SYRINGE IVPB ONE (14:21)
[2017-02-22] MEDS ORDERED: Ringers Solution, Lactated 1,000 ML IVC SCH ×2 (14:30→17:42)
--- NOTE | 2017-02-22 14:34 | Anesthesia Evaluation PreOp ---
Date of Encounter: 02/22/17 Time of Encounter: 14:32 - Past History Planned Operation: left TKA Cardiac History: HTN, Other (EF 70% cardiac arrest in past from coronary vasospasm) Pulmonary History: Denies Any Significant HX MANAGER FILM History: Other (anxiety/depression) Other Medical History: GERD Anesthesia History: No Prior Anesthetic Complications : No Alcohol Use: none Drug use: none Medications and Allergies Atorvastatin [Lipitor] 20 mg PO HS 03/08/15 [History] Azelastine/Fluticasone [Dymista Nasal [place]] 1 spray NS DAILY 03/08/15 [History] Cholecalciferol (Vitamin D3) [Vitamin D3] 5,000 unit PO DAILY 03/08/15 [History] DULoxetine [Cymbalta] 90 mg PO HS 03/08/15 [History] Isosorbide MONOnitrate (24 HR) [Imdur] 30 mg PO BID 03/08/15 [History] LORazepam [Lorazepam] 0.5 mg PO DAILY PRN 03/08/15 [History] Loratadine [Claritin] 10 mg PO DAILY 03/08/15 [History] Melatonin 3 mg PO HS 03/08/15 [History] Memantine HCl [Namenda Xr] 14 mg PO QPM 03/08/15 [History] Metoprolol [Lopressor] 25 mg PO BID 03/08/15 [History] Multivitamin [Multi-Day Vitamins] 1 each PO DAILY 03/08/15 [History] Omeprazole 20 mg PO DAILY 03/08/15 [History] Potassium Chloride Elixir [Potassium Chloride] 20 meq PO DAILY 03/08/15 [History ] Aspirin [Ecotrin] 325 mg PO DAILY 02/21/16 [History] Docusate [Colace] 100 mg PO DAILY 02/21/16 [History] Meloxicam [Mobic] 15 mg PO DAILY 02/21/16 [History] Nitroglycerin [Nitrostat] 0.4 mg SL AD PRN 02/21/16 [History] Promethazine [Phenergan] 25 mg PO BID PRN 02/21/16 [History] Trazodone HCl 75 mg PO HS 03/30/16 [History] Donepezil [Aricept] 10 mg PO DAILY tablet 04/06/16 [Rx] OxyCODONE Immed Rel [Roxicodone 5 MG] 5 - 10 mg PO Q6HR PRN #40 tablet 04/06/16 [Rx] Quetiapine Fumarate [Seroquel] 200 mg PO QAM tablet 04/06/16 [Rx] Quetiapine Fumarate [Seroquel] 400 mg PO HS tablet 04/06/16 [Rx] Polyethylene Glycol 1000 [Polyethylene Glycol] 17 gm PO DAILY PRN 09/07/16 [ History] SUMAtriptan succinate [Imitrex] 50 mg PO Q2H PRN #12 tablet 09/08/16 [Rx] Aspirin Enteric Coated [Aspirin EC] 325 mg PO BID #20 tablet. 02/22/17 [Rx] Aspirin Enteric Coated [Aspirin EC] 325 mg PO BID #20 tablet. 02/22/17 [Rx] OxyCODONE Immed Rel [Roxicodone 5 MG] 5 mg PO Q4HR PRN #24 tablet 02/22/17 [Rx] OxyCODONE Immed Rel [Roxicodone 5 MG] 5 mg PO Q4HR PRN #24 tablet 02/22/17 [Rx] 3 Allergy/AdvReac Type Severity Reaction Status Date / Time carbamazepine AdvReac unknown Verified 02/22/17 14:13 per patient Erythromycin Base AdvReac Diarrhea Verified 02/22/17 14:13 guaifenesin AdvReac MIGRAINES Verified 02/22/17 14:13 Macrolide Antibiotics AdvReac Diarrhea Verified 02/22/17 14:13 morphine AdvReac Nausea Verified 02/22/17 14:13 topiramate [From Topamax] AdvReac "FELT LIKE Verified 02/22/17 14:13 ON SPEED" PER PATIENT - Meds/Allergy Pre-op Review Medications Reviewed: Yes Allergies Reviewed: Yes Beta Blockers on Current Med List: Yes (0830 AM) Anesthesia Results - Imaging EKG: report reviewed Chest x-ray: report reviewed Anesthesia Exam O2 Sat Height 1.57 m Height 1.57 m Weight 96.162 kg Weight 96.162 kg O2 Sat by Pulse Oximetry 92 Vital Signs Temp Pulse Resp BP Pulse Ox 98.3 F 73 18 125/65 92 02/22/17 14:23 02/22/17 14:23 02/22/17 14:23 02/22/17 14:23 02/22/17 14:23 - HEENT Pupil (Motor): Pupils equal Mallampati: II Teeth: Normal Oral Opening: Greater than 3 - MANAGER FILM MANAGER FILM Motor: Normal RUE, Normal LUE, Normal RLE, Normal LLE, Normal Face MANAGER FILM Sensory: Normal: RUE, LUE, RLE, LLE, Face - Cardiac Murmur: None JVD: No Carotid Bruit: No - Pulmonary Breath Sounds: bilateral Clear, bilateral Rales, bilateral Rhonchi Anesthesia Assess/Plan ASA Score: 3 Modified Delia Scale for Level of Consciousness: Cooperative, oriented, and tranquil Anesthetic Plan: General, Regional Autologous Blood: No Monitoring Plan: Standard Monitors Recovery Plan: PACU
--- NOTE | 2017-02-22 14:40 | History & Physical Report ---
Date of Encounter: 02/22/17 Time of Encounter: 14:39 24 Hour HP Update - Instructions Instructions: If the History and Physical is less than 30 days old and was completed prior to A.M. admission and or procedure and has NOT been updated on calendar day of procedure please complete this update prior to performing procedure. - Update Patient reports changes in Medical Condition: No Changes in examination, assessment, or condition: No Changes in Medication: No Preop tests/diagnostics Reviewed: Yes Surgery Remains Indicated: Yes Consent for Planned Operative Procedure(s) Verified: Yes - Pre-Operative Checklist Preoperative Checklist Indicated: No Prophylactic Antibiotic Ordered: Yes Is VTE Prophylaxis Indicated?: Yes
--- NOTE | 2017-02-22 15:20 | Anesthesia Procedures ---
Date of Encounter: 02/22/17 Time of Encounter: 15:00 Procedures: Anesthesia - Nerve Block Procedure Date: 02/22/17 Time: 15:00 Surgical Procedure: left TKA Checklist: Correct Patient Identifier, Correct procedure, History checked Correct side: Left Blood Thinner: No Monitor Applied: EKG, BP, Pulse Oximetry Supplemental Oxygen via Nasal Cannula (L/min): 2 Sedation: Fentanyl (mcg): 100 Indication: Post Op Analgesia Pre-op Neuro Deficits: No Block Type: Femoral, Other (iPACK) Catheter placed: No Sterile Technique: Yes Ultrasound used: Yes Anatomy identified: Yes Visual spread of Local: Yes Neuro Stimulation: Yes Nerve Stimulator Range: 0.2 - 0.4 mA Blood on Needle Aspiration: No Smooth Injection of Local: Yes Pain with Injection of Local: No Prep: Chlorhexadine Needle: 22 x 50 mm Stimuplex, 21 x 100 mm Stimuplex Local: 0.25% Bupivicaine w/Clonidine 20 mcg/cc (20 ml), Ropivacaine (0.5% with 8 of decadron 30 ml) Volume (cc): 50 total Number of Attempts: 1 Complications: None/effective block Vitals: O2 Sat Height 1.57 m Height 1.57 m Weight 96.162 kg Weight 96.162 kg O2 Sat by Pulse Oximetry 100 O2 Sat by Pulse Oximetry 100 O2 Sat by Pulse Oximetry 92 Vital Signs Temp Pulse Resp BP Pulse Ox 98.3 F 73 18 125/65 92 02/22/17 14:23 02/22/17 14:23 02/22/17 14:23 02/22/17 14:23 02/22/17 14:23
[2017-02-22] MEDS ORDERED: Acetaminophen IV 1,000 MG/100 ML INFUS..BTL ONE (15:23)
[2017-02-22] MEDS ORDERED: Dexamethasone 4 MG/ML VIAL ONE ×2 (15:41→15:45)
[2017-02-22] MEDS ORDERED: Ketamine *HR* 500 MG/10 ML MDV ONE (15:43)
[2017-02-22] MEDS ORDERED: EPHEDrine 50 MG/ML VIAL ONE (15:44)
[2017-02-22] MEDS ORDERED: Ondansetron 4 MG/2 ML VIAL ONE (15:47)
[2017-02-22] MEDS ORDERED: Povidone-Iodine 22.5 ML, Sodium Chloride IRRigation 500 ML IR ONE (15:55)
[2017-02-22] MEDS ORDERED: *HR* Vasopressin 20 UNIT/ML VIAL ONE (16:00)
[2017-02-22] MEDS ORDERED: Ketorolac 30 MG/ML VIAL ONE (16:23)
--- NOTE | 2017-02-22 16:43 | Orthopedic Operative Note ---
Date of procedure: 02/22/17 Pre-op diagnosis: Femoral aseptic loosening left total knee Post-op diagnosis: same Procedure: Procedure: Left revision femoral component of total knee Estimated blood loss: 200 Hardware: Metal and polyethylene replacement. Biomet SSK femur: 60 18x40 Constrained Nguyen:16 Exam Under anesthesia: Hyperextension 10 degrees significant varus valgus instability Procedural Notes: Patient with CR total knee with instability and bone scan evidence consistent with loosening of femoral component. Femoral component was loose intraoperative tibial component was well fixed and decision was made to revise femur to constrained Nguyen. Operative procedure: The patient was brought to the operating room and placed on the operating room table. After general anesthesia was administered the operative knee was examined. Findings were noted in the exam under anesthesia. The operative extremity was prepped and draped in sterile surgical fashion. The patient received IV antibiotics prior to skin incision. A standard midline incision was made centered over the patella through the old incision. The incision was made through the skin and subcutaneous tissue. A medial parapatellar tendon approach was performed. Care was taken to preserve tissue along the medial aspect of the patella. And to protect the patella tendon. The deep MCL was released off the medial tibia. The infra patella fat pad was excised. Fluid was encountered this was normal joint fluid, Cultures were obtained and gram . The knee was brought into flexion the poly-was removed. The interface between the patient's femoral component and distal femur were disrupted with a osteotome and oscillating saw. Femoral component was loose and removed without significant bone loss. Attention was then turned to the tibial component. Tibial component was well fixed no activity on bone scan decision was made to leave the tibial component. The femur was reamed to a 40 x 18 and the box cut was made for 60 which was a size removed. The femoral trial component was seated and the 16 constrained Nguyen was seated and secured. The knee had full flexion and full extension with no instability. Patella had excellent patella tracking. A 12 CR Nguyen was removed from the previous knee replacement The trial components were removed. The knee sat for 2 minutes with a Betadine saline solution. It was irrigated out with 2 L of pulse irrigation. The components were assembled on the back table, the femur was cemented. The 16 constrained liner was seated and secure. The knee was brought to full extension while the cement hardened. After the cement hardened the knee was irrigated out again. The extensor mechanism was closed with a running #2 Fiberwire suture and a running #2 PDS suture. The deep tissue was irrigated and closed deep with #1 PDS suture superficially with 0 PDS suture. The skin was closed with skin radha. The patient was placed in a sterile dressing and postoperative brace. They were extubated and transferred to recovery room in stable condition. Anesthesia: GETA Surgeon: Edwin Kohli Was there an library circulation assistant present: No Estimated blood loss (cc): 200 Condition: stable Disposition: PACU
--- NOTE | 2017-02-22 17:25 | Anesthesia Evaluation Post Op ---
Date of Encounter: 02/22/17 Time of Encounter: 17:24 - Vital Signs Vital Signs: vss - Lungs Lungs: Clear Ascult./Percussion - Airway Airway: Non-obstructed - Mental Status Mental Status: Asleep with brisk response to light stimulation - Pain Pain Scale used: Mora-Lara (Faces) (tolerable) - Nausea Vomiting Nausea Vomiting: Not Present - Hydration Hydration: Ice chips - Discharge PostOp Status: Transfer Patient to floor
[2017-02-22] MEDS ORDERED: Ondansetron 4 MG/2 ML VIAL IVP PRN (17:42)
[2017-02-22] MEDS ORDERED: Sennosides 8.6 MG TABLET PO PRN (17:42)
[2017-02-22] MEDS ORDERED: SUMAtriptan succinate 50 MG TABLET PO PRN (17:42)
[2017-02-22] MEDS ORDERED: CeFAZolin Premix DUPLEX 2,000 MG/50 ML BAG IVPB SCH (17:42)
[2017-02-22] MEDS ORDERED: Temazepam 15 MG CAPSULE PO PRN (17:42)
[2017-02-22] MEDS ORDERED: *HR* LORazepam 0.5 MG TABLET PO PRN (17:42)
[2017-02-22] MEDS ORDERED: Naloxone 0.4 MG/ML INJ IVP PRN (17:42)
[2017-02-22] MEDS ORDERED: Nitroglycerin 0.4 MG TAB.SUBL SL PRN (17:42)
[2017-02-22] MEDS ORDERED: MOM Conc 10 ML UD.LIQ PO PRN (17:42)
[2017-02-22] MEDS ORDERED: (Memantine Hcl [Namenda Xr] 14 MG) PO SCH (18:00)
[2017-02-22] MEDS ORDERED: *HR* Enoxaparin 30 MG/0.3 ML SYRINGE SQ SCH (18:00)
[2017-02-22 18:22] LABS: Hematocrit 39.9 % (35.3-44.9); Hemoglobin 12.6 g/dL (11.5-15.4)
[2017-02-22] MEDS: *HR* Enoxaparin 30 MG/0.3 ML SYRINGE SQ SCH (18:50)
[2017-02-22] MEDS: *HR* OxyCODONE Immed Rel 5 MG TABLET PO PRN ×2 (19:09→23:28)
[2017-02-22] MEDS: traZODone 50 MG TABLET PO SCH (20:26)
[2017-02-22] MEDS: Melatonin 3 MG TABLET PO SCH (20:26)
[2017-02-22] MEDS: Isosorbide MONOnitrate (24 HR) 30 MG TAB.ER.24H PO SCH (20:26)
[2017-02-22] MEDS: CeFAZolin Premix DUPLEX 2,000 MG/50 ML BAG IVPB SCH (23:25)
[2017-02-23 04:45] LABS: Hematocrit 35.1 % (35.3-44.9); Hemoglobin 11.2 g/dL (11.5-15.4)
[2017-02-23 05:00] LABS: BUN/Creatinine Ratio 20 (6-26); Blood Urea Nitrogen 18 mg/dL (8-23); Calcium 8.8 mg/dL (8.6-10.3); Carbon Dioxide 26 mEq/L (23-29); Chloride 102 mEq/L (98-107); Glucose 152 mg/dL (70-105); Osmolality,Calculated 283 (280-300); Sodium 134 mEq/L (136-145); eGFR For African Americans > 60 (> 60); eGFR For Non-African Americans > 60 (> 60)
[2017-02-23] MEDS: *HR* Enoxaparin 30 MG/0.3 ML SYRINGE SQ SCH ×2 (05:51→16:53)
[2017-02-23] MEDS: CeFAZolin Premix DUPLEX 2,000 MG/50 ML BAG IVPB SCH (05:51)
[2017-02-23] MEDS: *HR* OxyCODONE Immed Rel 5 MG TABLET PO PRN ×4 (05:52→20:30)
--- NOTE | 2017-02-23 06:40 | Orthopedics Progress Note ---
Date of Encounter: 02/23/17 Time of Encounter: 06:39 - Assessment and Plan (1) Loose total knee arthroplasty Current Visit: No Status: Acute Qualifiers: Encounter type: subsequent encounter Qualified Code(s): T84.038D - Mechanical loosening of other internal prosthetic joint, subsequent encounter; Z96.659 - Presence of unspecified artificial knee joint; Z96.659 - Presence of unspecified artificial knee joint (2) HTN (hypertension) Current Visit: No Status: Chronic Qualifiers: Hypertension type: unspecified Qualified Code(s): I10 - Essential (primary ) hypertension (3) Morbid obesity Current Visit: No Status: Chronic (4) Heart disease Current Visit: No Status: Chronic (5) Dementia Current Visit: No Status: Chronic Qualifiers: Dementia type: unspecified type Dementia behavioral disturbance: without behavioral disturbance Qualified Code(s): F03.90 - Unspecified dementia without behavioral disturbance (6) Parkinson's disease Current Visit: No Status: Chronic (7) Tobacco abuse Current Visit: No Status: Chronic Subjective Interval history: Patient was seen this morning doing well without complaints. Afebrile vital signs stable. Operative extremity: Neurovascularly intact Dressing clean dry and intact Calves nontender Assessment and plan: Continue with postoperative care hct 35 Objective Vital signs: Vital Signs Temp Pulse Resp BP Pulse Ox 02/23/17 05:50 85 118/68 02/23/17 01:03 98.0 F 79 16 70/38 92 02/22/17 21:00 97.5 F L 82 16 101/58 95 02/22/17 18:48 97.7 F 69 16 127/75 97 02/22/17 17:48 97.5 F L 70 15 114/74 98 02/22/17 17:44 98.5 F 69 16 125/79 97 02/22/17 17:25 97.9 F 70 12 134/70 98 02/22/17 17:15 97.6 F 68 14 120/65 96 02/22/17 17:05 71 12 152/88 95 02/22/17 16:55 73 14 144/84 97 02/22/17 16:45 98.2 F 75 10 153/77 97 02/22/17 15:22 68 16 124/76 98 02/22/17 15:05 67 18 127/70 100 02/22/17 14:53 72 18 133/82 100 01/11/18 14:23 98.3 F 73 18 125/65 92 Intake and Output 02/22/17 02/22/17 02/23/17 15:59 23:59 07:59 Intake Total 20 / 20 50 / 50 Output Total 500 / 500 Balance 20 / 20 -450 / -450 Intake: IV Fluids 20 / 20 50 / 50 Ancef Premix DUPLEX 2,000 mg In 50 / 50 50 ml @ 100 mls/hr IVPB Q8H BRIAN Rx#:[id number] Ancef Syringe 2,000 MG/20 ML 2, 20 / 20 000 mg In 20 ml @ 200 mls/hr IVPB PREOP ONE Rx#:[id number] Oral 0 / 0 Output: Urine 300 / 300 Estimated Blood Loss 200 / 200 Other: Stool Size Small # Voids 1 # Bowel Movement Diapers 1 Weight 96.162 kg - Labs CBC & BMP: 02/23/17 04:05 02/23/17 04:05 Labs: Abnormal lab results Hgb 11.2 g/dL (11.5-15.4) L 02/23/17 04:05 Hct 35.1 % (35.3-44.9) L 02/23/17 04:05 Sodium 134 mEq/L (136-145) L 02/23/17 04:05 Glucose 152 mg/dL (70-105) H 02/23/17 04:05 - VTE Documentation of Mechanical Device: Venous foot pump, device Consult Discharge Plan - Plan Referrals: Silvia Adams, PAC [Physician Wire Weaver] - 03/01/17 9:15 am (& also, February at 3:30 PM. Monday, March 27, 2017 at 08:30 AM. ) Edwin Kohli MD [Partnered Physician] - 03/28/17 5:00 pm Debbi Hadley MD [Partnered Physician] - 06/19/17 9:00 am Renae Maria [Primary Care Provider] -
[2017-02-23] MEDS: FLUTICASONE NS SCH (09:11)
[2017-02-23] MEDS: Cholecalciferol (D-3) 1,000 UNIT TABLET PO SCH (09:11)
[2017-02-23] MEDS: AZELASTINE NS SCH (09:11)
[2017-02-23] MEDS: Potassium Chloride Elixir 20 MEQ/15 ML UDC PO SCH (09:11)
[2017-02-23] MEDS: Isosorbide MONOnitrate (24 HR) 30 MG TAB.ER.24H PO SCH ×2 (09:12→20:32)
[2017-02-23] MEDS: Multivit/Ca/Min/Fe/FA 1 TAB TABLET PO SCH (09:12)
[2017-02-23] MEDS: Loratadine 10 MG TABLET PO SCH (09:13)
[2017-02-23] MEDS: *HR* HYDROmorphone (PF) 1 MG/ML SYRINGE IVP PRN ×3 (11:15→22:00)
--- NOTE | 2017-02-23 12:45 | Event Note ---
Date of Encounter: 02/23/17 Time of Encounter: 12:00 PCR- POD# 1 Left revision femoral component of total knee 02/22/17 PCR - Patient seen at bedside. Pain control: Adequate Participating in PT, doing well All questions and concerns addressed. Educated on use of incentive spirometer, ambulation, and hydration. Patient educated on post-operative restrictions and care. Addressed: see above. D/C plan:. ECF likely Sunday
--- NOTE | 2017-02-23 12:49 | Physician Discharge Referral ---
ExtendedCare Referral Info Transfer To: [facility] Provider in Charge: Dr. Kohli - Diagnosis (1) Rotator cuff arthropathy Priority: Secondary Status: Chronic (2) HTN (hypertension) Priority: Secondary Status: Chronic (3) Morbid obesity Priority: Secondary Status: Chronic (4) Heart disease Priority: Secondary Status: Chronic (5) Dementia Priority: Secondary Status: Chronic (6) Parkinson's disease Priority: Secondary Status: Chronic (7) Tobacco abuse Priority: Secondary Status: Chronic (8) Cervical stenosis of spinal canal Priority: Secondary Status: Chronic (9) Anterolisthesis Priority: Secondary Status: Chronic (10) Cervical kyphosis Priority: Secondary Status: Chronic (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 (12) DVT prophylaxis Priority: Secondary Status: Chronic (13) Chest pain Priority: Secondary Status: Chronic (14) Unstable angina Priority: Secondary Status: Chronic (15) Left shoulder pain Priority: Secondary Status: Chronic (16) Headache Priority: Secondary Status: Chronic (17) Loose total knee arthroplasty Priority: Primary Status: Acute Expected Duration of Placement: <30 days Prognosis: Good Aware of Diagnosis: Patient Aware of Prognosis: Patient - Transfer Medications Home Medications: Atorvastatin [Lipitor] 20 mg PO HS 03/08/15 [History] Azelastine/Fluticasone [Dymista Nasal [place]] 1 spray NS DAILY 03/08/15 [History] Cholecalciferol (Vitamin D3) [Vitamin D3] 5,000 unit PO DAILY 03/08/15 [History] DULoxetine [Cymbalta] 30 mg PO HS 03/08/15 [History] Isosorbide MONOnitrate (24 HR) [Imdur] 30 mg PO BID 03/08/15 [History] LORazepam [Lorazepam] 0.5 mg PO DAILY PRN 03/08/15 [History] Loratadine [Claritin] 10 mg PO DAILY 03/08/15 [History] Melatonin 3 mg PO HS 03/08/15 [History] Memantine HCl [Namenda Xr] 14 mg PO QPM 03/08/15 [History] Metoprolol [Lopressor] 25 mg PO BID 03/08/15 [History] Multivitamin [Multi-Day Vitamins] 1 each PO DAILY 03/08/15 [History] Omeprazole 20 mg PO DAILY 03/08/15 [History] Potassium Chloride Elixir [Potassium Chloride] 20 meq PO DAILY 03/08/15 [History ] Aspirin [Ecotrin] 325 mg PO DAILY 02/21/16 [History] Docusate [Colace] 100 mg PO DAILY 02/21/16 [History] Meloxicam [Mobic] 15 mg PO DAILY 02/21/16 [History] Nitroglycerin [Nitrostat] 0.4 mg SL AD PRN 02/21/16 [History] Promethazine [Phenergan] 25 mg PO BID PRN 02/21/16 [History] Trazodone HCl 75 mg PO HS 03/30/16 [History] Donepezil [Aricept] 10 mg PO DAILY tablet 04/06/16 [Rx] Quetiapine Fumarate [Seroquel] 200 mg PO QAM tablet 04/06/16 [Rx] Quetiapine Fumarate [Seroquel] 400 mg PO HS tablet 04/06/16 [Rx] Polyethylene Glycol 1000 [Polyethylene Glycol] 17 gm PO DAILY PRN 09/07/16 [ History] SUMAtriptan succinate [Imitrex] 50 mg PO Q2H PRN #12 tablet 09/08/16 [Rx] Aspirin Enteric Coated [Aspirin EC] 325 mg PO BID #20 tablet. 02/22/17 [Rx] HYDROcodone/Acet 5/325 mg [[place] 5-325 mg] 1 tab PO Q6H PRN #20 tab 02/22/17 [Rx ] OxyCODONE Immed Rel [Roxicodone 5 MG] 5 mg PO Q6HR PRN 02/22/17 [History] Allergies/Adverse Reactions: 3 Allergy/AdvReac Type Severity Reaction Status Date / Time carbamazepine AdvReac unknown Verified 02/22/17 14:13 per patient Erythromycin Base AdvReac Diarrhea Verified 02/22/17 14:13 guaifenesin AdvReac MIGRAINES Verified 02/22/17 14:13 Macrolide Antibiotics AdvReac Diarrhea Verified 02/22/17 14:13 morphine AdvReac Nausea Verified 02/22/17 14:13 topiramate [From Topamax] AdvReac "FELT LIKE Verified 02/22/17 14:13 ON SPEED" PER PATIENT - Respiratory Orders Smoking Cessation: Smoking cessation has been advised. For more information, call the [place] Tobacco Quit Line at 5-772-VEJZ-NOW. - Ancillary Orders May use pressure relief devices daily prn, May go on ETTA w/family/respon constitution party w /meds at nurse discretion PRN, May consult with Dentist, Horticulture Professor, [employer] PRN - Mobility Orders Chair, Ambulate - Rehabiliation Orders Rehab Potential: Good Rehab Orders: Evaluation for Physical Therapy, Evaluation for Occupational Therapy Other: Total Knee replacement Precautions x 6 weeks Apply cold therapy wrap 3-6x/day for 20 minutes at a time. Encourage ambulation throughout the day and incentive spirometer 10x/hour. Elevate affected extremity above heart as tolerated. Brace: Wear knee immobilizer at night x 2 weeks. - Treatments Skin tear care topically daily PRN per policy List/Other: Opsite placed. Keep dressing intact until first follow up appointment. If > 50% saturated, notify office, remove dressing and place appropriate dressing back in place. Dressing is water resistant, not water-proof. OK to shower, but do not get dressing wet. - Diet Orders Regular CERTIFICATION: I certify that the transfer of the above named patient to an Extended Care Facility is necessary for the continuing treatment of the diagnosis listed. The above information is true and accurate reflection of patient's current condition. Confidential - Redisclosure prohibited without a patient's written consent.
[2017-02-23] MEDS ORDERED: NAMENDA 14 MG PO SCH ×2 (18:00→21:00)
[2017-02-23] MEDS: traZODone 50 MG TABLET PO SCH (20:31)
[2017-02-23] MEDS: Melatonin 3 MG TABLET PO SCH (20:31)
[2017-02-24] MEDS: *HR* HYDROmorphone (PF) 1 MG/ML SYRINGE IVP PRN ×2 (01:07→06:41)
[2017-02-24 04:20] LABS: Hematocrit 34.5 % (35.3-44.9); Hemoglobin 10.7 g/dL (11.5-15.4)
[2017-02-24 04:34] LABS: BUN/Creatinine Ratio 21 (6-26); Blood Urea Nitrogen 21 mg/dL (8-23); Carbon Dioxide 34 mEq/L (23-29); Chloride 98 mEq/L (98-107); Glucose 129 mg/dL (70-105); Osmolality,Calculated 285 (280-300); Potassium 4.7 mEq/L (3.5-5.1); Sodium 135 mEq/L (136-145); eGFR For African Americans > 60 (> 60); eGFR For Non-African Americans 54 (> 60)
[2017-02-24] MEDS: *HR* Enoxaparin 30 MG/0.3 ML SYRINGE SQ SCH (04:59)
[2017-02-24] MEDS: *HR* OxyCODONE Immed Rel 5 MG TABLET PO PRN ×3 (04:59→13:45)
[2017-02-24] MEDS: Loratadine 10 MG TABLET PO SCH (09:01)
[2017-02-24] MEDS: Cholecalciferol (D-3) 1,000 UNIT TABLET PO SCH (09:01)
[2017-02-24] MEDS: Isosorbide MONOnitrate (24 HR) 30 MG TAB.ER.24H PO SCH (09:01)
[2017-02-24] MEDS: Multivit/Ca/Min/Fe/FA 1 TAB TABLET PO SCH (09:01)
[2017-02-24] MEDS: Potassium Chloride Elixir 20 MEQ/15 ML UDC PO SCH (09:01)
[2017-02-24] MEDS: AZELASTINE NS SCH (09:02)
[2017-02-24] MEDS: FLUTICASONE NS SCH (09:02)
[2017-02-24 12:12] VITALS: BP 136/72
== END 2017-02-24 17:19 | DRG 468 ==
LOC: SAMDAY 13:47 → 3NENU 17:41 → INTOOBSV 17:41
PROVIDERS: ADMIT Orthopaedic Surgery; ATTEND Orthopaedic Surgery

== ENCOUNTER 2021-03-17 02:16 | Observation (INO) ==
[2021-03-17 02:58] LABS: White Blood Count 3.3 K/mcL (4.3-11.1)
[2021-03-17 02:59] LABS: Basophils % 0.3 %; Eosinophils # 0.1 K/mcL (0.0-0.6); Hematocrit 37.2 % (35.3-44.9); Hemoglobin 11.8 g/dL (11.5-15.4); Lymphocytes # 1.3 K/mcL (0.6-4.6); Lymphocytes % 39.3 %; Mean Corpuscular HGB Conc 31.7 g/dL (31.6-35.5); Mean Corpuscular Hemoglobin 30.4 pg (28.0-33.3); Mean Corpuscular Volume 95.9 fL (83.0-100.0); Mean Platelet Volume 8.8 fL (9.4-12.4); Monocytes # 0.4 K/mcL (0.0-1.3); Monocytes % 13.5 %; Neutrophils # 1.4 K/mcL (1.6-8.9); Platelet Count 169 K/mcL (140-400); Red Blood Count 3.88 M/mcL (3.82-4.97); Red Cell Distribution Width 13.2 % (11.5-14.5); Segmented Neutrophils % 42.9 %
[2021-03-17 03:08] LABS: INR 0.9; Prothrombin Time 10.5 Seconds (9.4-12.1)
[2021-03-17 03:11] LABS: Activated Partial Thrombo Time 40.9 Seconds (26.0-36.0)
[2021-03-17 03:17] LABS: Alanine Aminotransferase 17 Units/L (7-52); Albumin 3.9 g/dL (3.5-5.7); Albumin/Globulin Ratio 1.7 (1.1-2.2); Alkaline Phosphatase 35 Units/L (34-104); Aspartate Amino Transferase 21 Units/L (13-39); BUN/Creatinine Ratio 20 (6-26); Bilirubin,Indirect 0.3 mg/dL (0.0-1.0); Bilirubin,Total 0.3 mg/dL (0.3-1.0); Blood Urea Nitrogen 16 mg/dL (8-23); Calcium 9.1 mg/dL (8.6-10.3); Carbon Dioxide 31 mEq/L (23-29); Chloride 99 mEq/L (98-107); Globulin 2.3 g/dL (2.4-3.5); Glucose 117 mg/dL (70-105); Lipase 30 Units/L (11-82); Osmolality,Calculated 282 (280-300); Potassium 3.9 mEq/L (3.5-5.1); Sodium 135 mEq/L (136-145); Total Protein 6.2 g/dL (6.4-8.9); Troponin I < 0.03 ng/mL (< 0.04); eGFR For African Americans > 60 (> 60); eGFR For Non-African Americans > 60 (> 60)
[2021-03-17 04:53] LABS: Influenza A PCR Negative (Negative); Influenza B PCR Negative (Negative); Resp. Syncytial Virus PCR Negative (Negative)
[2021-03-17 04:55] LABS: SARS-CoV-2 by PCR (In House) Negative (Negative)
[2021-03-17] MEDS ORDERED: Furosemide 20 MG/2 ML VIAL IVP ONE (05:05)
[2021-03-17 06:36] LABS: Adenovirus Not Detected (Not Detect); Bordetella Pertussis Not Detected (Not Detect); Chlamydophila pneumoniae Not Detected (Not Detect); Coronavirus 229E Not Detected (Not Detect); Coronavirus HKU1 Not Detected (Not Detect); Coronavirus NL63 Not Detected (Not Detect); Coronavirus OC43 Not Detected (Not Detect); Human Metapneumovirus Not Detected (Not Detect); Human Rhinovirus/Enterovirus Not Detected (Not Detect); Influenza A Subtype 2009 H1 Not Detected (Not Detect); Influenza B Not Detected (Not Detect); Mycoplasma pneumoniae Not Detected (Not Detect); Parainfluenza Virus 1 Not Detected (Not Detect); Parainfluenza Virus 2 Not Detected (Not Detect); Parainfluenza Virus 3 Not Detected (Not Detect); Parainfluenza Virus 4 Not Detected (Not Detect); Respiratory Syncytial Virus Not Detected (Not Detect); SARS-CoV-2 Not Detected (Not Detect)
[2021-03-17] MEDS ORDERED: Melatonin 3 MG TABLET PO PRN (07:12)
[2021-03-17] MEDS ORDERED: Naloxone 0.4 MG/ML INJ IVP PRN (07:12)
[2021-03-17] MEDS ORDERED: Perflutren Lipid Microsphere 1.3 ML in 0.9 % Sodium Chloride 8.7 ML IVP PRN (07:52)
[2021-03-17] MEDS ORDERED: *HR* HYDROcodone/Acet 5/325 mg TABLET PO PRN ×2 (10:13→18:27)
[2021-03-17] MEDS: tiZANidine 4 MG TABLET PO SCH (15:40)
[2021-03-17] MEDS: Furosemide 20 MG/2 ML VIAL IVP SCH (16:16)
[2021-03-17] MEDS: *HR* Heparin 5,000 UNIT/ML VIAL SQ SCH (16:59)
[2021-03-17] MEDS: Gabapentin 300 MG CAPSULE PO SCH (20:52)
[2021-03-17] MEDS ORDERED: tiZANidine 4 MG TABLET PO SCH (21:00)
[2021-03-17] MEDS ORDERED: QUEtiapine Fumarate 100 MG TABLET PO SCH (21:00)
[2021-03-17] MEDS ORDERED: traZODone 50 MG TABLET PO SCH (21:00)
[2021-03-17] MEDS ORDERED: rOPINIRole 1 MG TABLET PO SCH (22:45)
[2021-03-18 01:33] LABS: Hematocrit 39.5 % (35.3-44.9); Hemoglobin 12.8 g/dL (11.5-15.4); Mean Corpuscular HGB Conc 32.4 g/dL (31.6-35.5); Mean Corpuscular Hemoglobin 30.8 pg (28.0-33.3); Mean Platelet Volume 8.9 fL (9.4-12.4); Platelet Count 177 K/mcL (140-400); Red Blood Count 4.16 M/mcL (3.82-4.97); Red Cell Distribution Width 13.3 % (11.5-14.5); White Blood Count 2.8 K/mcL (4.3-11.1)
[2021-03-18 01:54] LABS: BUN/Creatinine Ratio 18 (6-26); Blood Urea Nitrogen 13 mg/dL (8-23); Calcium 9.4 mg/dL (8.6-10.3); Carbon Dioxide 33 mEq/L (23-29); Chloride 97 mEq/L (98-107); Glucose 142 mg/dL (70-105); Magnesium 2.1 mg/dL (1.6-2.6); Osmolality,Calculated 287 (280-300); Phosphorous 3.7 mg/dL (2.7-4.5); Potassium 3.3 mEq/L (3.5-5.1); Sodium 137 mEq/L (136-145); eGFR For African Americans > 60 (> 60); eGFR For Non-African Americans > 60 (> 60)
[2021-03-18] MEDS: *HR* Heparin 5,000 UNIT/ML VIAL SQ SCH (05:30)
[2021-03-18] MEDS ORDERED: Regadenoson 0.4 MG/5 ML SYRINGE IVP ONE (06:49)
[2021-03-18] MEDS ORDERED: Aspirin 81 MG TAB.CHEW PO SCH (09:00)
[2021-03-18] MEDS ORDERED: QUEtiapine Fumarate 100 MG TABLET PO SCH (09:00)
[2021-03-18] MEDS: Furosemide 20 MG/2 ML VIAL IVP SCH (09:16)
[2021-03-18] MEDS: tiZANidine 4 MG TABLET PO SCH (09:17)
[2021-03-18] MEDS: Gabapentin 300 MG CAPSULE PO SCH (09:17)
[2021-03-18 11:41] VITALS: BP 126/86; PULSE 92; TEMP 97.5; O2SAT 96
[2021-03-18] MEDS ORDERED: rOPINIRole 1 MG TABLET PO PRN (12:37)
[2021-03-18] MEDS ORDERED: Furosemide 40 MG TABLET PO PRN (12:37)
[2021-03-18] MEDS ORDERED: Melatonin 3 MG TABLET PO SCH (21:00)
[2021-03-18] MEDS ORDERED: lisinopriL 20 MG TABLET PO SCH (21:00)
[2021-03-18] MEDS ORDERED: Gabapentin 300 MG CAPSULE PO SCH (21:00)
[2021-03-19] MEDS ORDERED: Loratadine 10 MG TABLET PO SCH (09:00)
[2021-03-19] MEDS ORDERED: Gabapentin 300 MG CAPSULE PO SCH (09:00)
[2021-03-19] MEDS ORDERED: amLODIPine 5 MG TABLET PO SCH (09:00)
== END 2021-03-18 14:44 | disposition home or self-care (01) ==
LOC: EMEROOARM 02:16 → 3ANU 02:16
PROVIDERS: ADMIT Internal Medicine; ATTEND Internal Medicine